=== PATIENT | male | born 1980 | race Caucasian/White ===

== ENCOUNTER 2016-10-19 03:35 | Emergency (ER) | payer OTHER ==
--- NOTE | 2016-10-19 03:48 | PDOC ---
History of Present Illness - General Stated Complaint: REFILL OF SEIZURE MEDICATION Time Seen by Provider: 10/19/16 03:47 Past History - Past Medical History Allergies/Adverse Reactions: Allergies Allergy/AdvReac Type Severity Reaction Status Date / Time No Known Allergies Allergy Verified 09/19/16 07:07 Home Medications: Ambulatory Orders Unobtainable [Unobtainable] 09/19/16 Seizures: Yes - Immunization History Immunization Up to Date: Yes - Psycho/Social/Smoking Cessation Hx Anxiety: No Suicidal Ideation: No Smoking History: Current every day smoker Number of Cigarettes Smoked Daily: 0 Hx Alcohol Use: No Drug/Substance Use Hx: No Substance Use Type: Marijuana *DC/Admit/Observation/Transfer - Attestations Physician Attestion: 10/19/16 03:47 I, Dr. Terry Macedo, attest that this document has been prepared under my direction and personally reviewed by me in its entirety. I further attest, that it accurately reflects all work, treatment, procedures and medical decision -making performed by me.
[2016-10-19 03:56] VITALS: BP 108/90; PULSE 79; TEMP 98.2; BMI 21.4
[2016-10-19] MEDS ORDERED: levETIRAcetam 500 MG TABLET (FP) PO ONE ×2 (04:10→04:34)
--- NOTE | 2016-10-19 04:15 | PDOC ---
History of Present Illness - General Stated Complaint: REFILL OF SEIZURE MEDICATION Time Seen by Provider: 10/19/16 03:47 History Source: Patient Exam Limitations: No Limitations - History of Present Illness Initial Comments: 10/19/16 04:11 36-year-old male, with no significant medical history, here for medication refill. Patient states that he ran out of his anti-seizure medication and is in need of refill. He states that his PCP is on vacation and he couldn't refill it prior to the holidays. Patient came by EMS transport with his girlfriend. No other complaints at this time. No chest pain, no shortness of breath, no fever, no chills, no dyspnea, no dysphagia, no headache, no LOC, no blurry vision, no tingling, no numbness, no motor or sensory deficits. Severity: mild Modifying Factors: worse with: cold therapy, eating, immobilization, medication , movement, rest, other Associated Symptoms: denies: denies symptoms, chest pain, cough, diaphoresis, fever/chills, headaches, loss of appetite, malaise, nausea/vomiting, rash, seizure, shortness of breath, syncope, weakness, other Aspirin Received prior to arrival: No: no aspirin today, unknown, 81 mg x 1, 81 mg x 2, 81 mg x 3, 81 mg x 4, 325 mg x 1, provided at home, provided by EMS, provided by ED [facility] Contraindications(Core Measure): No: Allergy, Other, Active Blding w/i 24 hrs., Plavix, Receiving Warfarin Beta Pascual Contraindications(Core Measure): Yes: Not Prescribed Beta Pascual Given by EMS(Core Measure): No Beta Pascual Taken at Home(Core Measure): No Beta Pascual Not Indicated at this Time(Core Measure): No Past History - Past Medical History Allergies/Adverse Reactions: Allergies Allergy/AdvReac Type Severity Reaction Status Date / Time No Known Allergies Allergy Verified 09/19/16 07:07 Home Medications: Ambulatory Orders Levetiracetam [Keppra -] 500 mg PO BID #14 tablet 10/19/16 Seizures: Yes - Immunization History Immunization Up to Date: Yes - Psycho/Social/Smoking Cessation Hx Anxiety: No Suicidal Ideation: No Smoking History: Unknown if ever smoked Number of Cigarettes Smoked Daily: 0 Cigars Per Day: 0 Information on smoking cessation initiated: No Hx Alcohol Use: No Drug/Substance Use Hx: No Substance Use Type: Marijuana *Physical Exam - Vital Signs Last Vital Signs Temp Pulse Resp BP Pulse Ox 98.2 F 79 20 108/90 100 10/19/16 03:53 10/19/16 03:53 10/19/16 03:53 10/19/16 03:53 10/19/16 03:53 - Physical Exam General Appearance: Yes: Nourished, Appropriately Dressed, Disheveled. No: Apparent Distress, Mild Distress, Moderate Distress, Severe Distress, Alcohol on Breath, Intoxicated, Cachetic, Obese, Thin, Other HEENT: positive: EOMI, DARRELL Neck: positive: Trachea midline, Normal Thyroid, Supple Respiratory/Chest: positive: Lungs Clear, Normal Breath Sounds, Respiratory Distress. 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
== END 2016-10-19 04:39 | disposition home or self-care (01) ==
LOC: JER 03:35
DX: G40.802 Other epilepsy, not intractable, without status epilepticus (principal)
CPT/HCPCS: 99281-25

== ENCOUNTER 2017-01-29 23:34 | Observation (INO) | payer OTHER ==
--- NOTE | 2017-01-29 23:58 | PDOC ---
History of Present Illness - General Chief Complaint: Pain Stated Complaint: ABD PAIN Time Seen by Provider: 01/29/17 23:40 History Source: Patient Exam Limitations: No Limitations - History of Present Illness Travel History: No Initial Comments: 01/30/17 00:18 36-year-old male with a history of seizures presents to the emergency department complaining of diffuse abdominal pains 2 days without nausea/ vomiting, fever/chills lash diarrhea, chest pain, shortness of breath, urinary symptoms. Pain is alleviated minimally at rest and exacerbated on touch. There are no other symptoms or complaints. Timing/Duration: reports: intermittent Quality: reports: mild Abdominal Pain Onset Location: reports: generalized abdomen Pain Radiation: reports: no radiation Past History - Travel Traveled outside of the country in the last 30 days: No Close contact w/someone who was outside of country & ill: No - Past Medical History Allergies/Adverse Reactions: Allergies Allergy/AdvReac Type Severity Reaction Status Date / Time No Known Allergies Allergy Verified 01/29/17 23:35 Home Medications: Ambulatory Orders Levetiracetam [Keppra -] 500 mg PO BID #14 tablet 10/19/16 Seizures: Yes - Immunization History Immunization Up to Date: Yes - Psycho/Social/Smoking Cessation Hx Anxiety: No Suicidal Ideation: No Smoking History: Never smoked Have you smoked in the past 12 months: No Number of Cigarettes Smoked Daily: 5 Cigars Per Day: 0 Information on smoking cessation initiated: No Hx Alcohol Use: No Drug/Substance Use Hx: No Substance Use Type: None, Marijuana Review of Systems - Review of Systems Able to Perform ROS?: Yes Comments:: 01/30/17 00:17 CONSTITUTIONAL: Absent: fever, chills, diaphoresis, generalized weakness, malaise, loss of appetite HEENT: Absent: rhinorrhea, nasal congestion, throat pain, throat swelling, difficulty swallowing, mouth swelling, ear pain, eye pain, visual Changes CARDIOVASCULAR: Absent: chest pain, loss of consciousness, palpitations, irregular heart rate, peripheral edema RESPIRATORY: Absent: cough, shortness of breath, dyspnea with exertion, orthopnea, wheezing, stridor, hemoptysis GASTROINTESTINAL: +diffuse abd pain Absent: abdominal distension, nausea, vomiting, diarrhea, constipation, melena, hematochezia GENITOURINARY: Absent: dysuria, frequency, urgency, hesitancy, hematuria, flank pain, genital pain MUSCULOSKELETAL: Absent: myalgia, arthralgia, joint swelling SKIN: Absent: rash, itching, pallor HEMATOLOGIC/IMMUNOLOGIC: Absent: easy bleeding, easy bruising, lymphadenopathy, frequent infections ENDOCRINE: Absent: unexplained weight gain, unexplained weight loss, heat intolerance, cold intolerance NEUROLOGIC: Absent: headache, focal weakness or paresthesias, dizziness, unsteady gait, seizure, mental status changes, bladder or bowel incontinence PSYCHIATRIC: Absent: anxiety, depression, suicidal or homicidal ideation, hallucinations. Is the patient limited French proficient: No *Physical Exam - Vital Signs Last Vital Signs Temp Pulse Resp BP Pulse Ox 97.6 F 78 20 132/79 99 01/29/17 23:36 01/29/17 23:36 01/29/17 23:36 01/29/17 23:36 01/29/17 23:36 - Physical Exam Comments: 01/30/17 00:18 GENERAL: Well developed, well nourished. Awake and alert. No acute distress. HEENT: Normocephalic, atraumatic. PERRLA, EOMI. No conjunctival pallor. Sclera are non- icteric. Moist mucous membranes. Oropharynx is clear. NECK: Supple. Full ROM. No JVD. Carotid pulses 2+ and symmetric, without bruits. No thyromegaly. No lymphadenopathy. CARDIOVASCULAR: Regular rate and rhythm. No murmurs, rubs, or gallops. Distal pulses are 2+ and symmetric. PULMONARY: No evidence of respiratory distress. Lungs clear to auscultation bilaterally. No wheezing, rales or rhonchi. ABDOMINAL: diffuse abde pain Soft. Non-distended. No rebound or guarding. No organomegaly. Normoactive bowel sounds. MUSCULOSKELETAL Normal range of motion at all joints. No bony deformities or tenderness. No CVA tenderness. EXTREMITIES: No cyanosis. No clubbing. No edema. No calf tenderness. SKIN: Warm and dry. Normal capillary refill. No rashes. No jaundice. NEUROLOGICAL: Alert, awake, appropriate. Cranial nerves 2-12 intact. No deficits to light touch and temperature in face, upper extremities and lower extremities. No motor deficits in the in face, upper extremities and lower extremities. Normoreflexic in the upper and lower extremities. Normal speech. Toes are down- going bilaterally. Gait is normal without ataxia. PSYCHIATRIC: Cooperative. Good eye contact. Appropriate mood and affect. ED Treatment Course - LABORATORY CBC & Chemistry Diagram: 01/30/17 00:30 01/30/17 00:30 - RADIOLOGY Radiograph Interpretation: 01/30/17 04:44 CT abdomen/pelvis with by mouth and IV contrast Shane thickening segments of small bowel and transverse colon suggest nonspecific enterolateral colitis. Peritoneal fluid and mild mesenteric lymph node enlargement is likely related to enterocolitis. *DC/Admit/Observation/Transfer Diagnosis at time of Disposition: Enterocolitis - Discharge Dispostion Condition at time of disposition: Guarded Admit: Yes - Referrals Referrals: Sofia Lui [Primary Care Provider] -
[2017-01-30] MEDS ORDERED: SODIUM CHLORIDE 1,000 ML IV STA
[2017-01-30] MEDS ORDERED: KETOROLAC TROMETHAMINE 30 MG/1 ML VIAL IVPUSH ONE (00:35)
[2017-01-30 00:40] LABS: BASOPHIL 0.4 % (0-2.0); EOSINOPHIL 0.2 % (0-4.5); MCH 29.2 pg (25.7-33.7); MEAN CELL VOLUME 85.9 fl (80-96); MEAN PLT VOLUME 7.8 fl (7.5-11.1); NEUTROPHILS 85.4 % (42.8-82.8); PLATELET COUNT 451 K/MM3 (134-434); RDW 14.1 % (11.9-15.9); WHITE BLOOD COUNT 14.4 K/mm3 (4.0-10.0)
[2017-01-30 01:11] LABS: ALBUMIN 4.6 g/dl (3.4-5.0); AMYLASE 30 U/L (25-115); ANION GAP 14 (8-16); CALCIUM 9.9 mg/dL (8.5-10.1); CO2 26 mmol/L (21-32); COCKROFT - GAULT 96.38; GLUCOSE,RANDOM 84 mg/dL (74-106); SGOT/AST 11 U/L (15-37); SGPT/ALT 14 U/L (12-78)
[2017-01-30 01:12] LABS: ALK PHOS 79 U/L (45-117); BILIRUBIN,TOTAL 0.8 mg/dL (0.2-1.0); TOT PROT 7.8 g/dl (6.4-8.2)
[2017-01-30] MEDS ORDERED: ACETAMINOPHEN 1000 MG/100 ML VIAL (NON FORMULARY) IVPB ONE (02:33)
[2017-01-30] MEDS ORDERED: ACETAMINOPHEN INJECTION 100 ML IVPB ONE (02:41)
[2017-01-30] MEDS ORDERED: METRONIDAZOLE 500 MG PREMIXED 100 ML IVPB ONE ×2 (04:47→05:04)
[2017-01-30] MEDS ORDERED: LEVOFLOXACIN 500 MG IVPB 100 ML IVPB ONE ×2 (04:47→05:45)
[2017-01-30] MEDS ORDERED: ONDANSETRON 4 MG/2 ML VIAL IVPB PRN (06:21)
--- NOTE | 2017-01-30 06:24 | HP ---
CHIEF COMPLAINT: PCP: Unknown HISTORY OF PRESENT ILLNESS: 36 y/o M uncooperative with examination, presented to ED complaining of generalized abdominal pain which started yesterday. pain 10 /10 in intensity and denied nausea or vomiting. On evaluation in ED patient asking for diluadid pushes and review of Istop shows patient with monthly supply of percocet. Patient denies symptoms having any relation to food, no recnt travel. Denies fever, chill, chest pain or palpitations. ER course was notable for: (1) Flagyl and Levofloxacin (2) IVF NS 1L (3) Recent Travel: None PAST MEDICAL HISTORY: Seizures PAST SURGICAL HISTORY:? Social History: Smoking: Marijuana Alcohol: Occasional Drugs: Marijuana Family History: Allergies No Known Allergies Allergy (Verified 01/29/17 23:35) HOME MEDICATIONS: Home Medications Medication Instructions Recorded Levetiracetam [Keppra -] 500 mg PO BID #14 tablet 10/19/16 REVIEW OF SYSTEMS CONSTITUTIONAL: Absent: fever, chills, diaphoresis, generalized weakness, malaise, loss of appetite, weight change HEENT: Absent: rhinorrhea, nasal congestion, throat pain, throat swelling, difficulty swallowing, mouth swelling, ear pain, eye pain, visual changes CARDIOVASCULAR: Absent: chest pain, syncope, palpitations, irregular heart rate, lightheadedness , peripheral edema RESPIRATORY: Absent: cough, shortness of breath, dyspnea with exertion, orthopnea, wheezing, stridor, hemoptysis GASTROINTESTINAL:abdominal pain, Absent: abdominal distension, nausea, vomiting, diarrhea, constipation, melena , hematochezia GENITOURINARY: Absent: dysuria, frequency, urgency, hesitancy, hematuria, flank pain, genital pain MUSCULOSKELETAL: back pain Absent: myalgia, arthralgia, joint swelling, , neck pain SKIN: Absent: rash, itching, pallor HEMATOLOGIC/IMMUNOLOGIC: Absent: easy bleeding, easy bruising, lymphadenopathy, frequent infections ENDOCRINE: Absent: unexplained weight gain, unexplained weight loss, heat intolerance, cold intolerance NEUROLOGIC: Absent: headache, focal weakness or paresthesias, dizziness, unsteady gait, seizure, mental status changes, bladder or bowel incontinence PSYCHIATRIC: Absent: anxiety, depression, suicidal or homicidal ideation, hallucinations. PHYSICAL EXAMINATION Vital Signs - 24 hr 01/29/17 23:36 Temperature 97.6 F Pulse Rate 78 Respiratory 20 Rate Blood Pressure 132/79 O2 Sat by Pulse 99 Oximetry (%) GENERAL: Awake, alert, and fully oriented, in no acute distress. Uncooperative, sleeping. HEAD: Normal with no signs of trauma. EYES: Pupils equal, round and reactive to light, extraocular movements intact, sclera anicteric, conjunctiva clear. No lid lag. EARS, NOSE, THROAT: Ears normal, nares patent, oropharynx clear without exudates. Moist mucous membranes. NECK: Normal range of motion, supple without lymphadenopathy, JVD, or masses. LUNGS: Breath sounds equal, clear to auscultation bilaterally. No wheezes, and no crackles. No accessory muscle use. HEART: Regular rate and rhythm, normal S1 and S2 without murmur, rub or gallop. ABDOMEN: Soft, nontender, not distended, normoactive bowel sounds, false guarding, no rebound, no masses. No hepatomegaly or splenomegaly. MUSCULOSKELETAL: Normal range of motion at all joints. No bony deformities or tenderness. No CVA tenderness. UPPER EXTREMITIES: 2+ pulses, warm, well-perfused. No cyanosis. No clubbing. No peripheral edema. LOWER EXTREMITIES: 2+ pulses, warm, well-perfused. No calf tenderness. No peripheral edema. NEUROLOGICAL: Cranial nerves II-XII intact. Normal speech. Normal gait. PSYCHIATRIC: Cooperative. Good eye contact. Appropriate mood and affect. SKIN: Warm, dry, normal turgor, no rashes or lesions noted, normal capillary refill. Laboratory Results - last 24 hr 01/30/17 01/30/17 00:30 00:30 WBC 14.4 H RBC 4.71 Hgb 13.7 D Hct 40.5 MCV 85.9 MCHC 34.0 RDW 14.1 Plt Count 451 H D MPV 7.8 D Neutrophils % 85.4 H Lymphocytes % 7.0 L D Monocytes % 7.0 Eosinophils % 0.2 Basophils % 0.4 Sodium 136 Potassium 4.2 Chloride 96 L Carbon Dioxide 26 Anion Gap 14 BUN 15 D Creatinine 1.0 Creat Clearance w eGFR > 60 Random Glucose 84 Calcium 9.9 D Total Bilirubin 0.8 D AST 11 L D ALT 14 D Alkaline Phosphatase 79 Total Protein 7.8 Albumin 4.6 Total Amylase 30 D Lipase 64 L ASSESSMENT/PLAN: Acute Gastroenteritis vs malingering ( opioid) low sodium diet as tolerated IVF NS @125cc/h Zofran prn tylenol prn Repeat CBC, BMP DVT prophylaxis NO Opioids Seizures Continue Keppra 500mg BID Ativan PRN Admitted for observation Problem List - Problem (1) Enterocolitis Code(s): K52.9 - NONINFECTIVE GASTROENTERITIS AND COLITIS, UNSPECIFIED (2) Seizure Code(s): R56.9 - UNSPECIFIED CONVULSIONS Visit type - Emergency Visit Emergency Visit: Yes Care time: The patient presented to the Emergency Department on the above date and was hospitalized for further evaluation of their emergent condition. - New Patient This patient is new to me today: Yes Date on this admission: 01/30/17 - Critical Care Critical Care patient: No
[2017-01-30] MEDS: ACETAMINOPHEN 325 MG TABLET (FP) PO PRN ×2 (09:16→16:49)
[2017-01-30 09:45] LABS: BASOPHIL 0.3 % (0-2.0); MCH 28.4 pg (25.7-33.7); MCHC 32.8 g/dl (32.0-35.9); MEAN CELL VOLUME 86.8 fl (80-96); MEAN PLT VOLUME 8.1 fl (7.5-11.1); NEUTROPHILS 90.8 % (42.8-82.8); PLATELET COUNT 340 K/MM3 (134-434); RDW 14.3 % (11.9-15.9); WHITE BLOOD COUNT 12.1 K/mm3 (4.0-10.0)
[2017-01-30] MEDS: SODIUM CHLORIDE 1,000 ML IV SCH (09:48)
[2017-01-30] MEDS: levETIRAcetam 500 MG TABLET (FP) PO SCH ×2 (10:36→21:58)
[2017-01-30] MEDS ORDERED: ACETAMINOPHEN 325 MG TABLET (FP) ONE (16:47)
--- NOTE | 2017-01-30 17:32 | PN ---
Physical Exam: SUBJECTIVE: Patient seen and examined Patient is c/o having midepigastric pain, that he is not able to eat any food. OBJECTIVE: Vital Signs Temperature 98.7 F 01/30/17 16:37 Pulse Rate 94 H 01/30/17 16:37 Respiratory Rate 18 01/30/17 16:37 Blood Pressure 119/72 01/30/17 16:37 O2 Sat by Pulse Oximetry (%) 97 01/30/17 16:37 GENERAL: The patient is awake, alert, and fully oriented, in no acute distress. HEAD: Normal with no signs of trauma. EYES: PERRL, extraocular movements intact, sclera anicteric, conjunctiva clear. No ptosis. ENT: Ears normal, nares patent, oropharynx clear without exudates, moist mucous membranes. NECK: Trachea midline, full range of motion, supple. LUNGS: Breath sounds equal, clear to auscultation bilaterally, no wheezes, no crackles, no accessory muscle use. HEART: Regular rate and rhythm, S1, S2 without murmur, rub or gallop. ABDOMEN: Soft, mild tenderness , nondistended, normoactive bowel sounds, positive for voluntary guarding, no rebound, no masses appreciated . EXTREMITIES: 2+ pulses, warm, well-perfused, no edema. NEUROLOGICAL: Cranial nerves II through XII grossly intact. Normal speech, gait not observed. PSYCH: Normal mood, normal affect. SKIN: Warm, dry, normal turgor, no rashes or lesions noted CBCD WBC 12.1 K/mm3 (4.0-10.0) H 01/30/17 09:13 RBC 4.60 M/mm3 (4.00-5.60) 01/30/17 09:13 Hgb 13.1 GM/dL (11.7-16.9) 01/30/17 09:13 Hct 39.9 % (35.4-49) 01/30/17 09:13 MCV 86.8 fl (80-96) 01/30/17 09:13 MCHC 32.8 g/dl (32.0-35.9) 01/30/17 09:13 RDW 14.3 % (11.9-15.9) 01/30/17 09:13 Plt Count 340 K/MM3 (134-434) D 01/30/17 09:13 MPV 8.1 fl (7.5-11.1) 01/30/17 09:13 CMP Sodium 136 mmol/L (136-145) 01/30/17 00:30 Potassium 4.2 mmol/L (3.5-5.1) 01/30/17 00:30 Chloride 96 mmol/L (98-107) L 01/30/17 00:30 Carbon Dioxide 26 mmol/L (21-32) 01/30/17 00:30 Anion Gap 14 (8-16) 01/30/17 00:30 BUN 15 mg/dL (7-18) D 01/30/17 00:30 Creatinine 1.0 mg/dL (0.7-1.3) 01/30/17 00:30 Creat Clearance w eGFR > 60 (>60) 01/30/17 00:30 Random Glucose 84 mg/dL (74-106) 01/30/17 00:30 Calcium 9.9 mg/dL (8.5-10.1) D 01/30/17 00:30 Total Bilirubin 0.8 mg/dL (0.2-1.0) D 01/30/17 00:30 AST 11 U/L (15-37) L D 01/30/17 00:30 ALT 14 U/L (12-78) D 01/30/17 00:30 Alkaline Phosphatase 79 U/L (45-117) 01/30/17 00:30 Total Protein 7.8 g/dl (6.4-8.2) 01/30/17 00:30 Albumin 4.6 g/dl (3.4-5.0) 01/30/17 00:30 Home Medications Medication Instructions Recorded Levetiracetam [Keppra -] 500 mg PO BID #14 tablet 10/19/16 Generic Name Dose Route Start Last Admin Trade Name Freq PRN Reason Stop Dose Admin Acetaminophen 650 mg 01/30/17 06:21 01/30/17 16:49 Tylenol - PO 650 mg Q6H PRN Administration FEVER OR PAIN Sodium Chloride 1,000 mls @ 125 mls/hr 01/30/17 06:30 01/30/17 09:48 Normal Saline - IV 125 mls/hr ASDIR KOKO Administration Ceftriaxone Sodium 1 gm/ 100 mls @ 200 mls/hr 01/30/17 17:30 Dextrose IVPB DAILY KOKO Metronidazole 50 mls @ 50 mls/hr 01/30/17 18:00 Flagyl 250mg Premixed Ivpb - IVPB Q8H-IV KOKO Levetiracetam 500 mg 01/30/17 10:00 01/30/17 10:36 Keppra - PO 500 mg BID KOKO Administration Ondansetron HCl 4 mg 01/30/17 06:21 Zofran Injection IVPB Q6H PRN NAUSEA ASSESSMENT/PLAN: Patient is a 36 y/o Male presented to ED complaining of generalized abdominal pain. #Acute enterocolitis on IV antibiotic rocephin/Flagyl IV for now, IVF NS @125cc /h ;Zofran prn ;tylenol prn ;Repeat CBC, BMP also c/o having stomach pain that he is unable to eat, will add pepcid IV BId, NO Opioids #Seizures: Continue Keppra 500mg BID ;Ativan PRN DVT prophylaxis: early ambulation repeat labs in am Visit type - Emergency Visit Emergency Visit: Yes ED Registration Date: 01/30/17 Care time: The patient presented to the Emergency Department on the above date and was hospitalized for further evaluation of their emergent condition. - New Patient This patient is new to me today: Yes Date on this admission: 01/30/17 - Critical Care Critical Care patient: No
[2017-01-30] MEDS ORDERED: CEFTRIAXONE 50 ML ONE (18:24)
[2017-01-30] MEDS: CEFTRIAXONE 50 ML IVPB SCH (18:37)
[2017-01-30 18:42] VITALS: BMI 28.3
[2017-01-30] MEDS ORDERED: KETOROLAC TROMETHAMINE 15 MG/ML VIAL IVPB ONE (20:07)
[2017-01-30] MEDS: METRONIDAZOLE PREMIXED IVPB 50 ML IVPB SCH (21:57)
[2017-01-30] MEDS: FAMOTIDINE 20 MG/50 ML IVPB 50 ML IVPB SCH (21:59)
[2017-01-31] MEDS: ACETAMINOPHEN 325 MG TABLET (FP) PO PRN ×2 (02:56→09:28)
[2017-01-31] MEDS: METRONIDAZOLE PREMIXED IVPB 50 ML IVPB SCH ×2 (02:57→10:22)
[2017-01-31] MEDS ORDERED: KETOROLAC TROMETHAMINE 15 MG/ML VIAL IVPB ONE (06:34)
[2017-01-31] MEDS: SODIUM CHLORIDE 1,000 ML IV SCH (06:49)
[2017-01-31 07:47] VITALS: TEMP 98.8
[2017-01-31 08:42] LABS: BASOPHIL 0.2 % (0-2.0); EOSINOPHIL 1.1 % (0-4.5); MCH 28.7 pg (25.7-33.7); MCHC 32.7 g/dl (32.0-35.9); MEAN CELL VOLUME 87.7 fl (80-96); MEAN PLT VOLUME 8.5 fl (7.5-11.1); NEUTROPHILS 81.8 % (42.8-82.8); PLATELET COUNT 292 K/MM3 (134-434); RDW 14.8 % (11.9-15.9); WHITE BLOOD COUNT 10.4 K/mm3 (4.0-10.0)
[2017-01-31 09:08] LABS: ALBUMIN 2.8 g/dl (3.4-5.0); ANION GAP 10 (8-16); BILIRUBIN,TOTAL 0.8 mg/dL (0.2-1.0); CALCIUM 8.3 mg/dL (8.5-10.1); CO2 24 mmol/L (21-32); COCKROFT - GAULT 192.77; CREATININE 0.5 mg/dL (0.7-1.3); GLUCOSE,RANDOM 85 mg/dL (74-106); PHOSPHOROUS 1.8 mg/dL (2.5-4.9); SGOT/AST 9 U/L (15-37); SGPT/ALT 11 U/L (12-78)
[2017-01-31 09:09] LABS: ALK PHOS 46 U/L (45-117); TOT PROT 5.5 g/dl (6.4-8.2)
[2017-01-31] MEDS: FAMOTIDINE 20 MG/50 ML IVPB 50 ML IVPB SCH (09:12)
[2017-01-31] MEDS: levETIRAcetam 500 MG TABLET (FP) PO SCH (09:30)
[2017-01-31 09:35] VITALS: BP 130/74; PULSE 92
[2017-01-31 10:50] LABS: URINE APPEARANCE CLEAR; URINE BILIRUBIN NEGATIVE (NEGATIVE); URINE BLOOD NEGATIVE (NEGATIVE); URINE COLOR AMBER; URINE GLUCOSE (UA) NEGATIVE (NEGATIVE); URINE KETONE 2+ (NEGATIVE); URINE LEUK ESTERASE NEGATIVE (NEGATIVE); URINE NITRITE NEGATIVE (NEGATIVE); URINE UROBILINOGEN NEGATIVE E.U./dl (0.2-1.0)
[2017-01-31 10:54] LABS: URINE PROTEIN 2+ (NEGATIVE)
[2017-01-31 10:55] LABS: URINE BACTERIA RARE /hpf (NONE SEEN); URINE MUCUS MODERATE; URINE RBC 4 /hpf (0-3); URINE WBC 2 /hpf (3-5)
[2017-01-31] MEDS ORDERED: DICYCLOMINE HCL 10 MG CAPSULE PO ONE (11:14)
[2017-01-31] MEDS: CEFTRIAXONE 50 ML IVPB SCH (11:42)
[2017-01-31] MEDS ORDERED: NAPH,MB-DB/K PH,MBDB POWDER PACKET PO ONE (12:00)
--- NOTE | 2017-01-31 12:09 | PN ---
Teaching Attending Note Name of Resident: Sim Smith ATTENDING PHYSICIAN STATEMENT I saw and evaluated the patient. I reviewed the resident's note and discussed the case with the resident. I agree with the resident's findings and plan as documented. Patient is feeling better , able to eat but c/o having mild epigastric pain. Vital Signs Temperature 98.8 F 01/31/17 06:00 Pulse Rate 92 H 01/31/17 09:00 Respiratory Rate 18 01/31/17 09:00 Blood Pressure 130/74 01/31/17 09:00 O2 Sat by Pulse Oximetry (%) 94 L 01/31/17 09:00 GENERAL: The patient is awake, alert, and fully oriented, in no acute distress. HEAD: Normal with no signs of trauma. EYES: PERRL, extraocular movements intact, sclera anicteric, conjunctiva clear. No ptosis. ENT: Ears normal, nares patent, oropharynx clear without exudates, moist mucous membranes. NECK: Trachea midline, full range of motion, supple. LUNGS: Breath sounds equal, clear to auscultation bilaterally, no wheezes, no crackles, no accessory muscle use. HEART: Regular rate and rhythm, S1, S2 without murmur, rub or gallop. ABDOMEN: Soft, mild tenderness , nondistended, normoactive bowel sounds, positive for voluntary guarding, no rebound, no masses appreciated . EXTREMITIES: 2+ pulses, warm, well-perfused, no edema. NEUROLOGICAL: Cranial nerves II through XII grossly intact. Normal speech, gait not observed. PSYCH: Normal mood, normal affect. SKIN: Warm, dry, normal turgor, no rashes or lesions noted CBCD WBC 10.4 K/mm3 (4.0-10.0) H 01/31/17 07:30 RBC 4.26 M/mm3 (4.00-5.60) 01/31/17 07:30 Hgb 12.2 GM/dL (11.7-16.9) 01/31/17 07:30 Hct 37.3 % (35.4-49) 01/31/17 07:30 MCV 87.7 fl (80-96) 01/31/17 07:30 MCHC 32.7 g/dl (32.0-35.9) 01/31/17 07:30 RDW 14.8 % (11.9-15.9) 01/31/17 07:30 Plt Count 292 K/MM3 (134-434) 01/31/17 07:30 MPV 8.5 fl (7.5-11.1) 01/31/17 07:30 CMP Sodium 140 mmol/L (136-145) 01/31/17 07:30 Potassium 3.9 mmol/L (3.5-5.1) 01/31/17 07:30 Chloride 106 mmol/L (98-107) D 01/31/17 07:30 Carbon Dioxide 24 mmol/L (21-32) 01/31/17 07:30 Anion Gap 10 (8-16) 01/31/17 07:30 BUN 13 mg/dL (7-18) 01/31/17 07:30 Creatinine 0.5 mg/dL (0.7-1.3) L D 01/31/17 07:30 Creat Clearance w eGFR > 60 (>60) 01/31/17 07:30 Random Glucose 85 mg/dL (74-106) 01/31/17 07:30 Calcium 8.3 mg/dL (8.5-10.1) L 01/31/17 07:30 Total Bilirubin 0.8 mg/dL (0.2-1.0) 01/31/17 07:30 AST 9 U/L (15-37) L 01/31/17 07:30 ALT 11 U/L (12-78) L D 01/31/17 07:30 Alkaline Phosphatase 46 U/L (45-117) D 01/31/17 07:30 Total Protein 5.5 g/dl (6.4-8.2) L D 01/31/17 07:30 Albumin 2.8 g/dl (3.4-5.0) L D 01/31/17 07:30 Current Medications Generic Name Dose Route Start Last Admin Trade Name Freq PRN Reason Stop Dose Admin Acetaminophen 650 mg 01/30/17 06:21 01/31/17 09:28 Tylenol - PO 650 mg Q6H PRN Administration FEVER OR PAIN Sodium Chloride 1,000 mls @ 125 mls/hr 01/30/17 06:30 01/31/17 06:49 Normal Saline - IV 125 mls/hr ASDIR KOKO Administration Ceftriaxone Sodium 50 mls @ 100 mls/hr 01/30/17 17:30 01/31/17 11:42 Rocephin 1gm Ivpb (Pre-Docked) IVPB 100 mls/hr DAILY KOKO Administration Metronidazole 50 mls @ 50 mls/hr 01/30/17 18:00 01/31/17 10:22 Flagyl 250mg Premixed Ivpb - IVPB 50 mls/hr Q8H-IV KOKO Administration Famotidine/Sodium Chloride 50 mls @ 100 mls/hr 01/30/17 22:00 01/31/17 09:12 Pepcid 20 Mg Premixed Ivpb - IVPB 100 mls/hr BID KOKO Administration Levetiracetam 500 mg 01/30/17 10:00 01/31/17 09:30 Keppra - PO 500 mg BID KOKO Administration Ondansetron HCl 4 mg 01/30/17 06:21 Zofran Injection IVPB Q6H PRN NAUSEA Home Medications Medication Instructions Recorded Levetiracetam [Keppra -] 500 mg PO BID #14 tablet 10/19/16 Acetaminophen [Tylenol .Regular 650 mg PO Q6H PRN #0 tablet 01/31/17 Strength -] Dicyclomine HCl [Bentyl -] 10 mg PO BID #8 capsule 01/31/17 Levofloxacin [Levaquin -] 500 mg PO DAILY #5 tablet 01/31/17 Metronidazole [Flagyl -] 500 mg PO Q8H #15 tablet 01/31/17 IMPRESSION: Abnormal transverse colon possible segments of proximal and mid small bowel. Suggestive of a enterocolitis. The small amount of fluid seen in the pelvis may be secondary to that process Small amount of fluid surrounding the gallbladder may be a separate finding and should be correlated clinically ASSESSMENT AND PLAN: Patient is a 36 y/o Male presented to ED complaining of generalized abdominal pain. #Acute enterocolitis on IV antibiotic rocephin/Flagyl IV will switch to po antibiotics on Levaquin and Flagyl daily x 5 days , no alcohol with flagyl follow up with GI in a week for EGD/colonoscopy and further # c/o stomach pain will give him Bentyl 10mg 2 x per day for 4 days . #Seizures: Continue Keppra 500mg BID DVT prophylaxis: early ambulation
--- NOTE | 2017-01-31 15:03 | DS ---
Physical Exam: SUBJECTIVE: Patient seen and examined OBJECTIVE: Vital Signs Period Temp Pulse Resp BP Sys/Kay Pulse Ox Last 24 Hr 98.3 F-98.8 F 84-94 18-18 112-131/71-78 93-97 PHYSICAL EXAM GENERAL: The patient is awake, alert, and fully oriented, in no acute distress. HEAD: Normal with no signs of trauma. EYES: PERRL, extraocular movements intact, sclera anicteric, conjunctiva clear. No ptosis. ENT: Ears normal, nares patent, oropharynx clear without exudates, moist mucous membranes. NECK: Trachea midline, full range of motion, supple. LUNGS: Breath sounds equal, clear to auscultation bilaterally, no wheezes, no crackles, no accessory muscle use. HEART: Regular rate and rhythm, S1, S2 without murmur, rub or gallop. ABDOMEN: Soft, mildly TTP epigastrium improved per patient, nondistended, normoactive bowel sounds, no guarding, no rigidity LABS Laboratory Results - last 24 hr 01/31/17 01/31/17 01/31/17 07:30 07:30 08:30 WBC 10.4 H RBC 4.26 Hgb 12.2 Hct 37.3 MCV 87.7 MCHC 32.7 RDW 14.8 Plt Count 292 MPV 8.5 Neutrophils % 81.8 Lymphocytes % 7.8 L D Monocytes % 9.1 Eosinophils % 1.1 D Basophils % 0.2 Sodium 140 Potassium 3.9 Chloride 106 D Carbon Dioxide 24 Anion Gap 10 BUN 13 Creatinine 0.5 L D Creat Clearance w eGFR > 60 Random Glucose 85 Calcium 8.3 L Phosphorus 1.8 L Magnesium 2.0 D Total Bilirubin 0.8 AST 9 L ALT 11 L D Alkaline Phosphatase 46 D Total Protein 5.5 L D Albumin 2.8 L D Urine Color Felicia Urine Appearance Clear Urine pH 6.0 Ur Specific Harbinger 1.029 Urine Protein 2+ H Urine Glucose (UA) Negative Urine Ketones 2+ H Urine Blood Negative Urine Nitrite Negative Urine Bilirubin Negative Urine Urobilinogen Negative Ur Leukocyte Esterase Negative Urine RBC 4 Urine WBC 2 Urine Bacteria Rare Urine Mucus Moderate HOSPITAL COURSE: Date of Admission:01/30/17 Date of Discharge: 01/31/17 36M with history of seizure disorder and traumatic brain injury came in to the hospital with abdominal pain. Had a CT scan found to have enterocolitis and started on ABx. patient improved and WBC coutn normalized. He is stable for discharge on PO ABx and bentyl. patient has a history of memory loss from traumatic brain injury and everything was explained to the mother in detail and questions answered. Minutes to complete discharge: 50 Discharge Summary Reason For Visit: ENTEROCOLITIS Current Active Problems Enterocolitis (Acute) GERD (gastroesophageal reflux disease) (Acute) ADHD (attention deficit hyperactivity disorder) (Chronic) History of traumatic brain injury (Chronic) Polysubstance abuse (Chronic) Seizure (Chronic) Seizure disorder (Chronic) Condition: Improved - Instructions Diet, Activity, Other Instructions: eat food as tolerated take your antibiotics as prescribed take the bentyl as prescribed i gave you referrals for two gastroenterologists Dr. dacosta and Dr. Bocanegra see who takes your insurance and schedule an appointment. if neither one takes your insurance call your insurance company and see who takes your insurance and schedule an appointment with them follow up with your primary care doctor eat a low fiber diet Referrals: Antoni Bocanegra DO [Staff Physician] - 1 Week Shyam Dacosta MD [Staff Physician] - 1 Week Sofia Lui [Primary Care Provider] - 1 Week Disposition: HOME - Home Medications Comprehensive Discharge Medication List: Ambulatory Orders Levetiracetam [Keppra -] 500 mg PO BID #14 tablet 10/19/16 Acetaminophen [Tylenol .Regular Strength -] 650 mg PO Q6H PRN #0 tablet Dicyclomine HCl [Bentyl -] 10 mg PO BID #8 capsule 01/31/17 Levofloxacin [Levaquin -] 500 mg PO DAILY #5 tablet 01/31/17 Metronidazole [Flagyl -] 500 mg PO Q8H #15 tablet 01/31/17 This patient is new to me today: Yes Date on this admission: 01/31/17 Emergency Visit: Yes ED Registration Date: 01/30/17 Care time: The patient presented to the Emergency Department on the above date and was hospitalized for further evaluation of their emergent condition. Critical Care patient: No - Discharge Referral Referred to [facility] Med P.C.: No
== END 2017-01-31 14:16 | disposition home or self-care (01) ==
LOC: JER 23:34 → JERBED 01-30 06:31 → J5S 01-30 18:53
PROVIDERS: ADMIT Internal Medicine; ATTEND Internal Medicine
PROC: 3E03329 Introduction of Other Anti-infective into Peripheral Vein, Percutaneous Approach (ICD-10-PCS; principal; 2017-01-30)
PROC: 3E0333Z Introduction of Anti-inflammatory into Peripheral Vein, Percutaneous Approach (ICD-10-PCS; 2017-01-30)
PROC: 3E033GC Introduction of Other Therapeutic Substance into Peripheral Vein, Percutaneous Approach (ICD-10-PCS; 2017-01-30)
PROC: 3E0337Z Introduction of Electrolytic and Water Balance Substance into Peripheral Vein, Percutaneous Approach (ICD-10-PCS; 2017-01-30)
DX: K52.9 Noninfective gastroenteritis and colitis, unspecified (principal); K21.9 Gastro-esophageal reflux disease without esophagitis; G40.909 Epilepsy, unspecified, not intractable, without status epilepticus; F90.9 Attention-deficit hyperactivity disorder, unspecified type; F19.10 Other psychoactive substance abuse, uncomplicated; F10.10 Alcohol abuse, uncomplicated
CPT/HCPCS: 36415; 74177-TC; 80048; 80053; 81003; 81015; 82150; 83690; 83735; 84100; 85025; 99285-25; G0378

== ENCOUNTER 2017-02-05 02:36 | Emergency (ER) | payer OTHER ==
[2017-02-05 03:24] VITALS: TEMP 98.6; BMI 24.5
[2017-02-05] MEDS ORDERED: DICYCLOMINE HCL 10 MG/5 ML PO ONE (03:39)
[2017-02-05] MEDS ORDERED: ONDANSETRON *ODT* 4 MG TABLET SL ONE (03:39)
[2017-02-05] MEDS ORDERED: SODIUM CHLORIDE 0.9% 1000 ML INFUS.BAG IV ONE ×2 (03:58→05:47)
[2017-02-05] MEDS ORDERED: KETOROLAC TROMETHAMINE 30 MG/1 ML VIAL IM ONE (03:59)
[2017-02-05] MEDS ORDERED: KETOROLAC TROMETHAMINE 30 MG/1 ML VIAL IVPUSH ONE (04:14)
[2017-02-05] MEDS ORDERED: ONDANSETRON 4 MG/2 ML VIAL IVPUSH ONE (04:15)
[2017-02-05] MEDS ORDERED: KETOROLAC TROMETHAMINE 30 MG/1 ML VIAL ONE (04:16)
[2017-02-05] MEDS ORDERED: ONDANSETRON 4 MG/2 ML VIAL ONE (04:16)
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
[2017-02-05 04:39] LABS: BASOPHIL 0.5 % (0-2.0); MCHC 32.7 g/dl (32.0-35.9); MEAN CELL VOLUME 85.7 fl (80-96); MEAN PLT VOLUME 7.6 fl (7.5-11.1); NEUTROPHILS 73.5 % (42.8-82.8); PLATELET COUNT 544 K/MM3 (134-434); RDW 15.6 % (11.9-15.9); WHITE BLOOD COUNT 12.7 K/mm3 (4.0-10.0)
[2017-02-05 05:02] LABS: ALBUMIN 3.2 g/dl (3.4-5.0); ALK PHOS 60 U/L (45-117); ANION GAP 8 (8-16); BILIRUBIN,TOTAL 0.3 mg/dL (0.2-1.0); CALCIUM 9.1 mg/dL (8.5-10.1); CO2 28 mmol/L (21-32); COCKROFT - GAULT 139.22; CREATININE 0.6 mg/dL (0.7-1.3); GLUCOSE,RANDOM 113 mg/dL (74-106); SGPT/ALT 13 U/L (12-78); TOT PROT 6.8 g/dl (6.4-8.2)
[2017-02-05 05:05] LABS: SGOT/AST 16 U/L (15-37)
[2017-02-05] MEDS ORDERED: LACTULOSE 20 GM/30 ML UDC (FOR ORAL USE ONLY) PO ONE (06:20)
[2017-02-05] MEDS ORDERED: POLYETHYLENE GLYCOL 3350 119 GM BTL PO ONE (06:20)
[2017-02-05] MEDS ORDERED: DOCUSATE SODIUM 100 MG CAPSULE (FP) PO ONE (06:20)
[2017-02-05 07:39] VITALS: BP 110/79; PULSE 69
== END 2017-02-05 07:39 | disposition home or self-care (01) ==
LOC: JER 02:36
PROC: 3E033GC Introduction of Other Therapeutic Substance into Peripheral Vein, Percutaneous Approach (ICD-10-PCS; principal; 2017-02-05)
DX: K59.03 Drug induced constipation (principal); T40.2X5A Adverse effect of other opioids, initial encounter; Y92.038 Other place in apartment as the place of occurrence of the external cause; Z87.820 Personal history of traumatic brain injury
CPT/HCPCS: 36415; 74020-TC; 80053; 83690; 85025; 96374; 99283-25

== ENCOUNTER 2017-06-08 09:10 | Inpatient (IN) | payer OTHER ==
[2017-06-08] MEDS ORDERED: ETOMIDATE 20 MG/10 ML AMPUL IVPUSH ONE (10:01)
[2017-06-08] MEDS ORDERED: SODIUM CHLORIDE 1,000 ML IV STA (10:01)
[2017-06-08] MEDS ORDERED: VALPROATE SODIUM 500 MG/5 ML VIAL IVPB ONE ×2 (10:01→10:59)
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
--- NOTE | 2017-06-08 10:16 | PDOC ---
History of Present Illness - General Chief Complaint: Respiratory Distress Stated Complaint: SEIZURE Past History - Past Medical History Allergies/Adverse Reactions: Allergies Allergy/AdvReac Type Severity Reaction Status Date / Time No Known Allergies Allergy Verified 02/05/17 03:24 Home Medications: Ambulatory Orders Levetiracetam [Keppra -] 500 mg PO BID #14 tablet 10/19/16 Acetaminophen [Tylenol .Regular Strength -] 650 mg PO Q6H PRN #0 tablet Dicyclomine HCl [Bentyl -] 10 mg PO BID #8 capsule 01/31/17 Levofloxacin [Levaquin -] 500 mg PO DAILY #5 tablet 01/31/17 Metronidazole [Flagyl -] 500 mg PO Q8H #15 tablet 01/31/17 Magnesium Citrate [Citroma -] 300 ml PO ONCE #10 bottle 02/05/17 Sodium Phosphate/Na Biphos [Fleet Adult Rectal Enema] 133 ml RC ONCE #2 enema Seizures: Yes - Immunization History Immunization Up to Date: Yes - Psycho/Social/Smoking Cessation Hx Anxiety: No Suicidal Ideation: No Smoking History: Unknown if ever smoked Have you smoked in the past 12 months: No Number of Cigarettes Smoked Daily: 5 Cigars Per Day: 0 Hx Alcohol Use: No Drug/Substance Use Hx: No Substance Use Type: None, Alcohol, Marijuana Hx Substance Use Treatment: No *Physical Exam - Vital Signs Last Vital Signs Temp Pulse Resp BP Pulse Ox 32 H 06/08/17 09:30 ED Treatment Course - ADDITIONAL ORDERS Additional order review: Laboratory Results 06/08/17 09:24 POC Glucometer [id number] 06/08/17 09:24 POC Glucometer [id number]
[2017-06-08] MEDS: ACETYLCYSTEINE 20% 200MG/ML 30ML VIAL *FOR INJECTION USE ONLY IVPB ONE ×2 (10:17→10:21)
[2017-06-08] MEDS ORDERED: ACETAMINOPHEN 1000 MG/100 ML VIAL (NON FORMULARY) IVPB ONE (10:20)
[2017-06-08 10:21] LABS: VENOUS BLOOD GAS HCO3 15.3 meq/L (19-25)
[2017-06-08 10:22] LABS: VENOUS PH 6.99 (7.32-7.42)
[2017-06-08] MEDS ORDERED: PROPOFOL 100 ML IVPB SCH ×2 (10:30→11:15)
[2017-06-08 10:44] LABS: ALBUMIN 4.4 g/dl (3.4-5.0); ANION GAP 23 (8-16); BILIRUBIN,TOTAL 0.3 mg/dL (0.2-1.0); CALCIUM 10.3 mg/dL (8.5-10.1); CO2 15 mmol/L (21-32); CREATININE 1.7 mg/dL (0.7-1.3); GLUCOSE,RANDOM 107 mg/dL (74-106); SGPT/ALT 31 U/L (12-78); TOT PROT 8.6 g/dl (6.4-8.2)
[2017-06-08 10:47] LABS: ALK PHOS 140 U/L (45-117); CPK 87 IU/L (39-308); TROPONIN I 0.02 ng/ml (0.00-0.05)
[2017-06-08 10:49] VITALS: BMI 27.4
[2017-06-08] MEDS ORDERED: levETIRAcetam 500 MG/5 ML INJECTION VIAL IVPB ONE (10:53)
--- NOTE | 2017-06-08 10:57 | PDOC ---
Attending Attestation - Resident Resident Name: Tera Joy - HPI HPI: 06/08/17 10:44 Pt presents to the ED hypoxic and unresponsive, with bag valve ventilations by EMS. Found in status by EMS given 5 mg versed. On arrival to the ED, patient found to be hypoxic into the 70s despite bag valve mask ventilations. Febrile on arrival, given IV tylenol. Intubated with difficulty with 6.5 ETT on third attempt. Antiepileptic treatment given with 1 g depakene, started on propofol. differential includes non compliance with antiepileptics, electrolyte disturbance, infection, intracranial mass or bleed. Will check labs, CXR, CT head, admit to ICU. Case discussed with Dr. Knight of Neurology. 06/08/17 11:46 06/08/17 11:56 - Physicial Exam PE: 06/08/17 11:56 Agree with above exam. 06/08/17 11:56 - Critical Care Time Total Critical Care Time: 75 Critical Care Statement: The care of this patient involved high complexity decision making to prevent further life threatening deterioration of the patient 's condition and/or to evaluate & treat vital organ system(s) failure or risk of failure. - Medical Decision Making 06/08/17 11:56 06/08/17 11:56 differential includes non compliance with antiepileptics, electrolyte disturbance, infection, intracranial mass or bleed. Will check labs, CXR, CT head, admit to ICU. Case discussed with Dr. Knight of Neurology. Critical Care Time/MDM Note Total Critical Care Time: 75 Critical Care Statement: The care of this patient involved high complexity decision making to prevent further life threatening deterioration of the patient 's condition and/or to evaluate & treat vital organ system(s) failure or risk of failure.
[2017-06-08 10:59] LABS: URINE APPEARANCE CLOUDY; URINE BILIRUBIN NEGATIVE (NEGATIVE); URINE BLOOD 2+ (NEGATIVE); URINE COLOR YELLOW; URINE GLUCOSE (UA) 1+ (NEGATIVE); URINE KETONE TRACE (NEGATIVE); URINE LEUK ESTERASE NEGATIVE (NEGATIVE); URINE NITRITE NEGATIVE (NEGATIVE); URINE UROBILINOGEN NEGATIVE mg/dL (0.2-1.0)
[2017-06-08 11:01] LABS: SGOT/AST 42 U/L (15-37)
[2017-06-08 11:42] LABS: URINE PROTEIN 3+ (NEGATIVE)
[2017-06-08 11:43] LABS: INR 0.9 (0.82-1.09); PROTHROMBIN TIME (PATIENT) 9.9 SEC (9.98-11.88)
[2017-06-08 11:45] LABS: ACTIVATED PTT 25.2 SECONDS (26.9-34.4)
[2017-06-08 11:45] LABS: URINE HYALINE CAST 8 /lpf; URINE MUCUS RARE; URINE RBC 8 /hpf (0-3); URINE WBC 5 /hpf (3-5)
[2017-06-08 12:03] LABS: URINE MARIJUANA THC POSITIVE ng/ml (CUTOFF=50)
[2017-06-08] MEDS ORDERED: PNEUMOC 13-VAL CONJ-DIP CRM/PF 0.5 ML DISP.SYRIN IM ONE (12:15)
[2017-06-08 12:22] LABS: ARTERIAL BLD GAS O2 SATURATION 99.9 % (90-98.9); ARTERIAL BLOOD GAS BASE EXCESS -4.9 meq/l (-2-2); ARTERIAL BLOOD GAS HCO3 19.9 meq/L (22-26); ARTERIAL BLOOD GAS pH 7.34 (7.35-7.45)
[2017-06-08 12:24] LABS: LPM/O2% 100%; MECH. VENT. YES; PT. ON O2? YES; TYPE OF O2 VENT; VENT RATE 12; VT/PRESS 450
[2017-06-08 12:26] LABS: MCH 27.7 pg (25.7-33.7); MCHC 31.8 g/dl (32.0-35.9); MEAN CELL VOLUME 87.3 fl (80-96); MEAN PLT VOLUME 8.2 fl (7.5-11.1); PLATELET COUNT 372 K/MM3 (134-434); RDW 14.3 % (11.9-15.9); WHITE BLOOD COUNT 25.8 K/mm3 (4.0-10.0)
[2017-06-08 13:01] LABS: PLATELET ESTIMATE ADEQUATE (NORMAL); TOTAL CELLS COUNTED 100
[2017-06-08] MEDS ORDERED: PROPOFOL 100 ML ONE (13:03)
[2017-06-08] MEDS ORDERED: LORazepam 2 MG/ML SDV VIAL IVPUSH PRN (13:48)
--- NOTE | 2017-06-08 14:22 | HP ---
CHIEF COMPLAINT: status epilepticus PCP: Sofia Lui HISTORY OF PRESENT ILLNESS: History taken solely from ED staff and records as pt was intubated and unresponsive, and no family was available. Pt is a 36 y/o male with PMH remote TBI with residual epilepsy and history of neurosurgery 2011. Pt has history of noncompliance with medications and polysubstance abuse. Came to this ED in 09/2016 for similar presentation. Per report, pt took 500mg Keppra this am. ER course was notable for: (1)O2 sat in 70s prompting intubation and sedation with propafol via L central line. (2)head CT (3)1 dose depakene, 1 gm keppra, 5mg Ativan (given en route by EMS) Recent Travel: unknown PAST MEDICAL HISTORY: epilepsy PAST SURGICAL HISTORY: brain surgery unknown date Social History: Smoking: unknown Alcohol: unknown Drugs: polysubstance abuse Family History: unknown Allergies No Known Allergies Allergy (Verified 02/05/17 03:24) HOME MEDICATIONS: Home Medications Medication Instructions Recorded Levetiracetam [Keppra -] 500 mg PO BID #14 tablet 10/19/16 Acetaminophen [Tylenol .Regular 650 mg PO Q6H PRN #0 tablet 01/31/17 Strength -] Dicyclomine HCl [Bentyl -] 10 mg PO BID #8 capsule 01/31/17 Levofloxacin [Levaquin -] 500 mg PO DAILY #5 tablet 01/31/17 Metronidazole [Flagyl -] 500 mg PO Q8H #15 tablet 01/31/17 Magnesium Citrate [Citroma -] 300 ml PO ONCE #10 bottle 02/05/17 Sodium Phosphate/Na Biphos [Fleet 133 ml RC ONCE #2 enema 02/05/17 Adult Rectal Enema] REVIEW OF SYSTEMS CONSTITUTIONAL: Pt unresponsive, intubated, sedated Absent: fever, chills, diaphoresis, generalized weakness, malaise, loss of appetite, weight change HEENT: Absent: rhinorrhea, nasal congestion, throat pain, throat swelling, difficulty swallowing, mouth swelling, ear pain, eye pain, visual changes CARDIOVASCULAR: Absent: chest pain, syncope, palpitations, irregular heart rate, lightheadedness , peripheral edema RESPIRATORY: Absent: cough, shortness of breath, dyspnea with exertion, orthopnea, wheezing, stridor, hemoptysis GASTROINTESTINAL: Absent: abdominal pain, abdominal distension, nausea, vomiting, diarrhea, constipation, melena, hematochezia GENITOURINARY: Absent: dysuria, frequency, urgency, hesitancy, hematuria, flank pain, genital pain MUSCULOSKELETAL: Absent: myalgia, arthralgia, joint swelling, back pain, neck pain SKIN: Absent: rash, itching, pallor HEMATOLOGIC/IMMUNOLOGIC: Absent: easy bleeding, easy bruising, lymphadenopathy, frequent infections ENDOCRINE: Absent: unexplained weight gain, unexplained weight loss, heat intolerance, cold intolerance NEUROLOGIC: Absent: headache, focal weakness or paresthesias, dizziness, unsteady gait, seizure, mental status changes, bladder or bowel incontinence PSYCHIATRIC: Absent: anxiety, depression, suicidal or homicidal ideation, hallucinations. PHYSICAL EXAMINATION Vital Signs - 24 hr 06/08/17 06/08/17 12:25 12:43 Temperature 100.6 F H Pulse Rate [ 105 H Left Apical] Respiratory 25 H 16 Rate Blood Pressure 118/79 [Right Arm] O2 Sat by Pulse 97 Oximetry (%) GENERAL: Intubated and sedated HEAD: Normal with no signs of trauma. EYES: Pupils equal, dilated, round and reactive to light, sclera anicteric, conjunctiva clear. No lid lag. EARS, NOSE, THROAT: Ears normal, nares patent, Moist mucous membranes. NECK: no JVD, or masses. LUNGS: Anterior breath sounds equal, clear to auscultation bilaterally. No wheezes, and no crackles. No accessory muscle use. HEART: Regular rate and rhythm, normal S1 and S2 without murmur, rub or gallop. ABDOMEN: Soft, nontender, not distended, normoactive bowel sounds, no guarding, no rebound, no masses. No hepatomegaly or splenomegaly. MUSCULOSKELETAL: Active motion not tested. No bony deformities or tenderness. No CVA tenderness. UPPER EXTREMITIES: 2+ pulses, warm, well-perfused. No cyanosis. No clubbing. No peripheral edema. LOWER EXTREMITIES: 2+ pulses, warm, well-perfused. No peripheral edema. NEUROLOGICAL: Cranial nerves II-XII intact. Normal speech. Normal gait. PSYCHIATRIC: Intubated and sedated SKIN: Warm, dry, normal turgor, no rashes or lesions noted, normal capillary refill. Laboratory Results - last 24 hr 06/08/17 06/08/17 06/08/17 12:09 12:15 12:40 WBC 25.8 H D RBC 5.23 Hgb 14.5 D Hct 45.7 D MCV 87.3 MCH 27.7 MCHC 31.8 L RDW 14.3 Plt Count 372 D MPV 8.2 Total Counted 100 Neutrophils % Y Neutrophils % (Manual) 87 H Band Neuts % (Manual) 1 Lymphocytes % Y Lymphocytes % (Manual) 2 L Monocytes % (Manual) 9 Eosinophils % (Manual) 1 Platelet Estimate Adequate Puncture Site Md puncture ABG pH 7.34 L ABG pCO2 at Pt Temp 38.2 ABG pO2 at Pt Temp 342.0 H* ABG HCO3 19.9 L ABG O2 Sat (Measured) 99.9 H* ABG O2 Content 20.0 ABG Base Excess -4.9 L Sulaiman Test Not applicable O2 Delivery Device Vent Oxygen Flow Rate 100% Vent Mode A/c Vent Rate 12 Mechanical Rate Yes PEEP 5.0 Pressure Support Vent 450 Lactic Acid 5.2 H* ASSESSMENT/PLAN: Pt is a 36y/o male with PMH remote TBI with residual epilepsy and history of neurosurgery 2011, noncompliance with medications, and polysubstance abuse who has been admitted for similar and intubated at this institution previously. Pt was BIBEMS after witnessed multiple seizures lasting around 4 min and was found to be in status epilepticus. #Acute Respiratory Failure -O2 sats in 70s in ED -Pt was intubated and started on Propafol drip -Admit to ICU -pulm consult #Status Epilepticus --Pt received 1 dose of Depakene and 1 gm Keppra in ED -Keppra IV 500mg BID -Ativan IVPB 2mg Q4H PRN -neuro consult #JOLIE -Cr 1.7 in ED (baseline 0.5) -f/u urine osm, urine urea -received bolus in ED #UTI -UA pos for protein, glucose, trace keytones, blood #Polysubstance abuse -UA pos for benzos and marijuana #FEN -bolus in ED -lytes wnl -npo #Dispo: admit to ICU Shine Lowe MD PGY-1 Visit type - Emergency Visit Emergency Visit: No - New Patient This patient is new to me today: No - Critical Care Critical Care patient: No
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
[2017-06-08] MEDS ORDERED: SODIUM CHLORIDE 1,000 ML IV SCH ×2 (20:00→20:01)
[2017-06-08] MEDS: HEPARIN NA (PORCINE) 5,000 UNITS/ML 1ML VIAL SQ SCH (21:07)
[2017-06-08] MEDS: MUPIROCIN 2% TOPICAL OINTMENT FOR DECOLONIZATION NS SCH (21:14)
[2017-06-08] MEDS ORDERED: CHLORHEXIDINE GLUCONATE 4% CLEANSER FOR DECOLONIZATION TP SCH (22:00)
[2017-06-08] MEDS ORDERED: levETIRAcetam 500 MG/5 ML INJECTION VIAL IVPB SCH (22:00)
[2017-06-09 07:27] LABS: BASOPHIL 0.3 % (0-2.0); MCH 27.9 pg (25.7-33.7); MCHC 32.4 g/dl (32.0-35.9); MEAN CELL VOLUME 86.3 fl (80-96); MEAN PLT VOLUME 8.5 fl (7.5-11.1); NEUTROPHILS 91.4 % (42.8-82.8); PLATELET COUNT 304 K/MM3 (134-434); RDW 14.8 % (11.9-15.9); WHITE BLOOD COUNT 21.9 K/mm3 (4.0-10.0)
[2017-06-09 07:28] LABS: INR 1.2 (0.82-1.09); PROTHROMBIN TIME (PATIENT) 13.2 SEC (9.98-11.88)
[2017-06-09 07:32] LABS: ALK PHOS 95 U/L (45-117); ANION GAP 10 (8-16); BILIRUBIN,TOTAL 0.6 mg/dL (0.2-1.0); CALCIUM 8.4 mg/dL (8.5-10.1); CO2 23 mmol/L (21-32); CREATININE 0.7 mg/dL (0.7-1.3); GLUCOSE,RANDOM 87 mg/dL (74-106); MAGNESIUM 2.3 mg/dL (1.8-2.4); PHOSPHOROUS 2.4 mg/dL (2.5-4.9); SGOT/AST 270 U/L (15-37); SGPT/ALT 192 U/L (12-78); TOT PROT 5.8 g/dl (6.4-8.2)
[2017-06-09] MEDS ORDERED: ACETAMINOPHEN 325 MG TABLET (FP) PO PRN ×2 (08:25→14:07)
[2017-06-09] MEDS ORDERED: levETIRAcetam 500 MG/5 ML INJECTION VIAL IVPB SCH (08:50)
--- NOTE | 2017-06-09 10:05 | EKG ---
Test Reason : Blood Pressure : / mmHG Vent. Rate : 134 BPM Atrial Rate : 134 BPM P-R Int : 128 ms QRS Dur : 086 ms QT Int : 302 ms P-R-T Axes : 078 072 073 degrees QTc Int : 450 ms SINUS TACHYCARDIA BIATRIAL ENLARGEMENT NONSPECIFIC ST ABNORMALITY ABNORMAL ECG WHEN COMPARED WITH ECG OF 19-SEP-2016 07:06, NO SIGNIFICANT CHANGE WAS FOUND Confirmed by UBALDO GOTTLIEB MD ([id number]) on 06/09/2017 10:05:16 AM Referred By: Confirmed By:UBALDO GOTTLIEB MD
[2017-06-09] MEDS: HEPARIN NA (PORCINE) 5,000 UNITS/ML 1ML VIAL SQ SCH ×2 (10:40→21:25)
[2017-06-09] MEDS: MUPIROCIN 2% TOPICAL OINTMENT FOR DECOLONIZATION NS SCH (10:40)
--- NOTE | 2017-06-09 10:51 | PN ---
Progress Note, Physician Chief Complaint: Respiratory Distress, Seizure History of Present Illness: Pt seen at bedside in no acute distress. Vital signs remain stable. Pt was extubated last night and saturating in 100s on RA. Pt states he has mild pain in area of xiphoid process. He has had no seizure activity since admission. He denies fever, nausea, vomiting, SOB, chest pain, diarrhea or constipation. - Current Medication List Current Medications: Active Medications Acetaminophen (Tylenol -) 325 mg PO Q6H PRN PRN Reason: FEVER OR PAIN Chlorhexidine Gluconate (Hibiclens For Decolonization -) 1 applic TP HS [facility] Last Admin: 06/08/17 21:07 Dose: 1 applic Heparin Sodium (Porcine) (Heparin -) 5,000 unit SQ BID [facility] Last Admin: 06/09/17 10:40 Dose: 5,000 unit Sodium Chloride (Normal Saline -) 1,000 mls @ 75 mls/hr IV ASDIR [facility] Stop: 06/10/17 09:19 Last Admin: 06/08/17 20:25 Dose: 75 mls/hr Levetiracetam (Keppra Injection -) 1,000 mg IVPB BID [facility] Last Admin: 06/09/17 10:37 Dose: 1,000 mg Lorazepam (Ativan Injection -) 2 mg IVPUSH Q4H PRN PRN Reason: ANXIETY Mupirocin (Bactroban Ointment (For Decolonization) -) 1 applic NS BID [facility] Stop: 06/13/17 21:59 Last Admin: 06/09/17 10:40 Dose: 1 applic - Objective Vital Signs: Vital Signs Temperature 98.0 F 06/09/17 00:00 Pulse Rate 88 06/09/17 10:06 Respiratory Rate 21 06/09/17 10:06 Blood Pressure 120/59 06/09/17 10:06 O2 Sat by Pulse Oximetry (%) 100 06/08/17 20:42 Constitutional: Yes: Well Nourished, No Distress, Calm Eyes: Yes: WNL, Conjunctiva Clear, EOM Intact HENT: Yes: WNL, Atraumatic, Normocephalic Neck: Yes: WNL, Supple, Trachea Midline Cardiovascular: Yes: WNL, Regular Rate and Rhythm Respiratory: Yes: WNL, Regular, CTA Bilaterally Gastrointestinal: Yes: WNL, Normal Bowel Sounds, Soft. No: Tenderness Neurological: Yes: WNL, Alert, Oriented, Cran Nerves II-XII Intact. No: Seizure , Tingling, Tremors ...Motor Strength: WNL Psychiatric: Yes: WNL, Alert, Oriented Labs: CBC, BMP 06/09/17 06:00 06/09/17 05:00 INR, PTT INR 1.20 (0.82-1.09) H D 06/09/17 06:00 Assessment/Plan 36 year old male admitted to the ICU for acute respiratory failure s/p seizure. Neuro: -No seizure activity since admission. -increased Keppra to 1 gm BID per Neuro recommendations -d/c'd ativan 2mg IV Q4H PRN; patient has not seized since he has been on the unit -compliance with medications recommended Pulmonary: -patient is saturating well post extubation -monitor O2 saturation -supplemental O2 as needed Gastrointestinal: -Stated to have pain near epigastric/xiphoid region -Tylenol 325mg PRN q6 for pain Renal: -acute kidney injury, creatinine treading down 1.7--> 0.7 -monitor urine output and creatinine levels FEN: -no indication for fluids at this time -phosphorus 2.4, will replete -regular diet -lactic acidosis (5.2) likely due to status epilepticus. trending down 5.2->0.7 Proph: -continue heparin 5000 subq BID -GI prophylaxsis not indicated at this time Dispo: -Patient is stable for transfer to med-surg floors
--- NOTE | 2017-06-09 11:17 | PN ---
Teaching Attending Note Name of Resident: Brent Noriega ATTENDING PHYSICIAN STATEMENT I saw and evaluated the patient. I reviewed the resident's note and discussed the case with the resident. I agree with the resident's findings and plan as documented. SUBJECTIVE: Pt seen and examined in the ICU. Extubated yesterday without incident. No further seizure activity. Denies shortness of breath. OBJECTIVE: Last Vital Signs Temp Pulse Resp BP Pulse Ox 98.0 F 88 21 120/59 100 06/09/17 00:00 06/09/17 10:06 06/09/17 10:06 06/09/17 10:06 06/08/17 20:42 Intake & Output 06/06/17 06/07/17 06/08/17 06/09/17 23:59 23:59 23:59 23:59 Output Total 1400 Balance -1400 Weight 170 lb Gen: NAD at rest Heart: RRR Lung: decreased breath sounds at the bases Abd: soft, nontender Ext: no edema CBC, BMP 06/09/17 06:00 06/09/17 05:00 Active Medications Acetaminophen (Tylenol -) 325 mg PO Q6H PRN PRN Reason: FEVER OR PAIN Chlorhexidine Gluconate (Hibiclens For Decolonization -) 1 applic TP HS [facility] Last Admin: 06/08/17 21:07 Dose: 1 applic Heparin Sodium (Porcine) (Heparin -) 5,000 unit SQ BID [facility] Last Admin: 06/09/17 10:40 Dose: 5,000 unit Sodium Chloride (Normal Saline -) 1,000 mls @ 75 mls/hr IV ASDIR [facility] Stop: 06/10/17 09:19 Last Admin: 06/08/17 20:25 Dose: 75 mls/hr Levetiracetam (Keppra Injection -) 1,000 mg IVPB BID [facility] Last Admin: 06/09/17 10:37 Dose: 1,000 mg Lorazepam (Ativan Injection -) 2 mg IVPUSH Q4H PRN PRN Reason: ANXIETY Mupirocin (Bactroban Ointment (For Decolonization) -) 1 applic NS BID [facility] Stop: 06/13/17 21:59 Last Admin: 06/09/17 10:40 Dose: 1 applic Potassium Phos/Sodium Phos (Phos-Nak Packet -) 1 packet PO BID [facility] Stop: 06/09/17 22:01 ASSESSMENT AND PLAN: Acute Hypoxic Respiratory Failure resolved Status Epilepticus resolved Lactic Acidosis, leukocytosis likely from above Acute Kidney Injury improved Traumatic Brain Injury h/o Polysubstance Abuse - continue antiepileptics per neuro - can stop IVF if tolerating PO - monitor urine output, creatinine - encourage compliance with medications - DVT prophylaxis - can monitor on floor
[2017-06-09] MEDS: NAPH,MB-DB/K PH,MBDB POWDER PACKET PO SCH ×2 (13:00→21:56)
--- NOTE | 2017-06-09 13:15 | PN ---
Physical Exam: SUBJECTIVE: Patient seen and examined at bedside. Pt is much improved since prior visit. Now speaks in sentences and is alert and aware. Pt's was present at bedside. Medication compliance was discussed at length with patient and . They both insist the patient is compliant with Keppra 1000mg BID, but mention that the patient drank "a small bottle" of vodka prior to his episode of seizures. Pt was strongly advised against the use of alcohol especially in light of his seizure disorder. Pt and stated that they are aware that alcohol lowers the effectiveness of his anti-epileptic medication. No other complaints. No acute events overnight. OBJECTIVE: Vital Signs Period Temp Pulse Resp BP Sys/Kay Pulse Ox Last 24 Hr 98 F-99.6 F 75-93 16-21 95-120/55-72 96-100 GENERAL: The patient is awake, alert, and fully oriented, in no acute distress. Speaking in full sentences. HEAD: Normal with no signs of trauma. EYES: PERRL, extraocular movements intact, sclera anicteric, conjunctiva clear. No ptosis. ENT: Ears normal, nares patent, oropharynx clear without exudates, moist mucous membranes. NECK: Trachea midline, full range of motion, supple. LUNGS: Breath sounds equal, clear to auscultation bilaterally, no wheezes, no crackles, no accessory muscle use. HEART: Regular rate and rhythm, S1, S2 without murmur, rub or gallop. ABDOMEN: Soft, nontender, nondistended, normoactive bowel sounds, no guarding, no rebound, no hepatosplenomegaly, no masses. EXTREMITIES: 2+ pulses, warm, well-perfused, no edema. NEUROLOGICAL: Cranial nerves II through XII grossly intact. Normal speech, gait not observed. PSYCH: Normal mood, normal affect. SKIN: Warm, dry, normal turgor, no rashes or lesions noted Laboratory Results - last 24 hr 06/08/17 06/08/17 06/08/17 12:40 13:30 21:45 WBC RBC Hgb Hct MCV MCH MCHC RDW Plt Count MPV Neutrophils % Lymphocytes % Monocytes % Eosinophils % Basophils % INR Sodium Potassium Chloride Carbon Dioxide Anion Gap BUN Creatinine Creat Clearance w eGFR Random Glucose Lactic Acid 5.2 H* 1.1 Calcium Phosphorus Magnesium Total Bilirubin AST ALT Alkaline Phosphatase Creatine Kinase 105 Total Protein Albumin Ur Random Urea Nitrogn 06/08/17 06/09/17 06/09/17 21:55 05:00 05:00 WBC RBC Hgb Hct MCV MCH MCHC RDW Plt Count MPV Neutrophils % Lymphocytes % Monocytes % Eosinophils % Basophils % INR Sodium 139 Potassium 3.8 Chloride 106 Carbon Dioxide 23 D Anion Gap 10 BUN 8 D Creatinine 0.7 D Creat Clearance w eGFR > 60 Random Glucose 87 Lactic Acid 0.7 Calcium 8.4 L Phosphorus 2.4 L D Magnesium 2.3 Total Bilirubin 0.6 D AST 270 H D ALT 192 H D Alkaline Phosphatase 95 D Creatine Kinase Total Protein 5.8 L D Albumin 3.0 L D Ur Random Urea Nitrogn 287 06/09/17 06/09/17 06:00 06:00 WBC 21.9 H RBC 4.69 Hgb 13.1 Hct 40.5 MCV 86.3 MCH 27.9 MCHC 32.4 RDW 14.8 Plt Count 304 MPV 8.5 Neutrophils % 91.4 H D Lymphocytes % 4.7 L D Monocytes % 3.6 L Eosinophils % 0.0 D Basophils % 0.3 INR 1.20 H D Sodium Potassium Chloride Carbon Dioxide Anion Gap BUN Creatinine Creat Clearance w eGFR Random Glucose Lactic Acid Calcium Phosphorus Magnesium Total Bilirubin AST ALT Alkaline Phosphatase Creatine Kinase Total Protein Albumin Ur Random Urea Nitrogn Active Medications Generic Name Dose Route Start Last Admin Trade Name Freq PRN Reason Stop Dose Admin Acetaminophen 325 mg 06/09/17 08:25 Tylenol - PO Q6H PRN FEVER OR PAIN Chlorhexidine Gluconate 1 applic 06/08/17 22:00 06/08/17 21:07 Hibiclens For Decolonization - TP 1 applic HS KOKO Administration Heparin Sodium (Porcine) 5,000 unit 06/08/17 22:00 06/09/17 10:40 Heparin - SQ 5,000 unit BID KOKO Administration Levetiracetam 1,000 mg 06/09/17 08:50 06/09/17 10:37 Keppra Injection - IVPB 1,000 mg BID KOKO Administration Lorazepam 2 mg 06/08/17 13:48 Ativan Injection - IVPUSH Q4H PRN ANXIETY Mupirocin 1 applic 06/08/17 22:00 06/09/17 10:40 Bactroban Ointment (For Decolonization) - NS 06/13/17 21:59 1 applic BID KOKO Administration Potassium Phos/Sodium Phos 1 packet 06/09/17 12:00 Phos-Nak Packet - PO 06/09/17 22:01 BID KOKO ASSESSMENT/PLAN: Pt is a 36y/o male with PMH remote TBI with residual epilepsy and history of neurosurgery 2011, noncompliance with medications, and polysubstance abuse who has been admitted for similar and intubated at this institution previously. Pt was BIBEMS after witnessed multiple seizures lasting around 4 min and was found to be in status epilepticus. #Epilepsy/Status Epilepticus --Pt received 1 dose of Depakene and 1 gm Keppra in ED -Keppra IV 1000mg BID -neuro consult #JOLIE: RESOLVED -Cr 0.7 #Acute Respiratory Failure: RESOLVED -pt extubated without complications -transfer to Med/Surg -pulm consult #UTI -UA pos for protein, glucose, trace keytones, blood #Polysubstance abuse -UA pos for benzos and marijuana #FEN -bolus in ED -lytes wnl -npo #Dispo: admit to ICU Shine Lowe MD PGY-1 Visit type - Emergency Visit Emergency Visit: No - New Patient This patient is new to me today: No - Critical Care Critical Care patient: No - Discharge Referral Referred to [facility] No
[2017-06-09] MEDS ORDERED: LORazepam 2 MG/ML SDV VIAL IVPUSH PRN (14:07)
--- NOTE | 2017-06-09 17:24 | PN ---
Teaching Attending Note Name of Resident: Shine Lowe ATTENDING PHYSICIAN STATEMENT I saw and evaluated the patient. I reviewed the resident's note and discussed the case with the resident. I agree with the resident's findings and plan as documented. SUBJECTIVE: OBJECTIVE: Vital Signs Period Temp Pulse Resp BP Sys/Kay Pulse Ox Last 24 Hr 98.0 F-99.7 F 75-88 16-21 95-120/55-72 96-100 ASSESSMENT AND PLAN: Pt is a 36y/o male with PMHx with epilepsy and history of neurosurgery 2011, noncompliance with medications, and polysubstance abuse who has been admitted for similar and intubated at this institution previously. Pt was witnessed to having multiple seizures lasting around 4 min and was found to be in status epilepticus. # Acute respiratory failure s/p intubation sedated onn Propofol drip ,sedated further management per ICU team #Status epilepticus on ativan prn, keppra IV, neuro consult -Keppra IV 500mg BID ;Ativan IVPB 2mg Q4H PRN; neuro consult #JOLIE ;Cr 1.7 in ED (baseline 0.5); IVF #Polysubstance abuse UA pos for benzos and marijuana DVT Px: Cds admit to ICU
[2017-06-09] MEDS: levETIRAcetam 500 MG/5 ML INJECTION VIAL IVPB SCH (21:24)
[2017-06-09] MEDS: PHENYTOIN NA EXTENDED 100 MG CAPSULE (FP) PO SCH (21:56)
[2017-06-10] MEDS: PHENYTOIN NA EXTENDED 100 MG CAPSULE (FP) PO SCH ×2 (06:20→13:53)
[2017-06-10 07:49] LABS: BASOPHIL 0.5 % (0-2.0); EOSINOPHIL 1.9 % (0-4.5); MCH 27.9 pg (25.7-33.7); MCHC 32.4 g/dl (32.0-35.9); MEAN CELL VOLUME 86.1 fl (80-96); NEUTROPHILS 82.3 % (42.8-82.8); PLATELET COUNT 272 K/MM3 (134-434); RDW 14.4 % (11.9-15.9); WHITE BLOOD COUNT 11.1 K/mm3 (4.0-10.0)
[2017-06-10 08:20] LABS: ALBUMIN 3.1 g/dl (3.4-5.0); ANION GAP 7 (8-16); CALCIUM 8.3 mg/dL (8.5-10.1); CO2 28 mmol/L (21-32); CREATININE 0.6 mg/dL (0.7-1.3); GLUCOSE,RANDOM 86 mg/dL (74-106); SGOT/AST 261 U/L (15-37); SGPT/ALT 245 U/L (12-78)
[2017-06-10 08:21] LABS: ALK PHOS 93 U/L (45-117); BILIRUBIN,TOTAL 0.8 mg/dL (0.2-1.0); TOT PROT 6.1 g/dl (6.4-8.2)
[2017-06-10] MEDS: HEPARIN NA (PORCINE) 5,000 UNITS/ML 1ML VIAL SQ SCH (09:33)
[2017-06-10] MEDS: levETIRAcetam 500 MG/5 ML INJECTION VIAL IVPB SCH (09:33)
[2017-06-10 09:39] VITALS: BP 122/75; PULSE 80; TEMP 99.1
--- NOTE | 2017-06-10 12:04 | DS ---
Physical Exam: SUBJECTIVE: Patient seen and examined at bedside. No acute events overnight. Pt has no complaints at this time. Denies headache, nausea, vomiting, fevers. OBJECTIVE: Vital Signs Period Temp Pulse Resp BP Sys/Kay Pulse Ox Last 24 Hr 99 F-99.7 F 68-86 18-20 96-122/61-75 96-96 PHYSICAL EXAM GENERAL: The patient is awake, alert, and fully oriented, in no acute distress. Speaking in full sentences. HEAD: Normal with no signs of trauma. EYES: sclera anicteric, conjunctiva clear. No ptosis. ENT: nares patent, oropharynx clear without exudates, moist mucous membranes. NECK: Trachea midline, full range of motion, supple. LUNGS: Breath sounds equal, clear to auscultation bilaterally, no wheezes, no crackles, no accessory muscle use. HEART: Regular rate and rhythm, S1, S2 without murmur, rub or gallop. ABDOMEN: Soft, nontender, nondistended, normoactive bowel sounds, no guarding, no rebound, no hepatosplenomegaly, no masses. EXTREMITIES: 2+ pulses, warm, well-perfused, no edema. NEUROLOGICAL: Cranial nerves II through XII grossly intact. Normal speech, gait not observed. PSYCH: Normal mood, normal affect. SKIN: Warm, dry, normal turgor, no rashes or lesions noted LABS Laboratory Results - last 24 hr 06/09/17 06/09/17 06/10/17 18:30 20:15 07:30 WBC 11.1 H D RBC 4.63 Hgb 12.9 Hct 39.8 MCV 86.1 MCH 27.9 MCHC 32.4 RDW 14.4 Plt Count 272 MPV 8.0 Neutrophils % 82.3 Lymphocytes % 9.0 D Monocytes % 6.3 Eosinophils % 1.9 D Basophils % 0.5 Sodium Potassium Chloride Carbon Dioxide Anion Gap BUN Creatinine Creat Clearance w eGFR Random Glucose Calcium Total Bilirubin AST ALT Alkaline Phosphatase Total Protein Albumin Phenytoin Cancelled < 2.5 L 06/10/17 07:30 WBC RBC Hgb Hct MCV MCH MCHC RDW Plt Count MPV Neutrophils % Lymphocytes % Monocytes % Eosinophils % Basophils % Sodium 139 Potassium 3.8 Chloride 104 Carbon Dioxide 28 D Anion Gap 7 L BUN 8 Creatinine 0.6 L Creat Clearance w eGFR > 60 Random Glucose 86 Calcium 8.3 L Total Bilirubin 0.8 D AST 261 H ALT 245 H D Alkaline Phosphatase 93 Total Protein 6.1 L Albumin 3.1 L Phenytoin HOSPITAL COURSE: Date of Admission:06/08/17 Date of Discharge: 06/10/17 Pt is a 36y/o male with PMH remote TBI with residual epilepsy and history of neurosurgery 2011, noncompliance with medications, and polysubstance abuse who has been admitted for similar and intubated at this institution previously. Pt was BIBEMS after witnessed multiple seizures lasting around 4 min and was found to be in status epilepticus. The patient received 1 dose of Depakene and 1 gm Keppra in ED. The pt's medications were reconciled and pt was started on home meds, Keppra 1000mg BID & Dilantin 100mg TID. The patient came to the ED with JOLIE, which resolved promptly. The patient came to the ED with acute respiratory failure. Pt was intubated, transferred to the ICU and extubated without complication. There was suspicion for UTI, but UCx was negative. The patient and were counselled extensively on the importance of medication compliance and avoidance of alcohol and taking 's meds. Shine Lowe MD PGY-1 Minutes to complete discharge: 45 Discharge Summary Reason For Visit: ACUTE RESPIRATORY FAILURE W/HYPOXIA, SEIZURE DISOR Current Active Problems Acute respiratory failure with hypoxia (Acute) Status epilepticus (Acute) Condition: Stable - Instructions Diet, Activity, Other Instructions: Please make sure you follow up on all your doctors' appointments, and make sure you take all your medication as directed. Do not drink alcohol as this can make you more likely to have seizures. Do not take any prescription medication that was not prescribed to you. If your symptoms get worse or if you develop new symptoms, please return to the emergency department. Referrals: Ann Beltrán MD [Staff Physician] - 1 Week Disposition: HOME - Home Medications Comprehensive Discharge Medication List: Ambulatory Orders Levetiracetam [Keppra -] 500 mg PO BID #14 tablet 10/19/16 Acetaminophen [Tylenol .Regular Strength -] 650 mg PO Q6H PRN #0 tablet Dicyclomine HCl [Bentyl -] 10 mg PO BID #8 capsule 01/31/17 Levofloxacin [Levaquin -] 500 mg PO DAILY #5 tablet 01/31/17 Metronidazole [Flagyl -] 500 mg PO Q8H #15 tablet 01/31/17 Magnesium Citrate [Citroma -] 300 ml PO ONCE #10 bottle 02/05/17 Sodium Phosphate/Na Biphos [Fleet Adult Rectal Enema -] 133 ml RC ONCE #2 enema 02/05/17 Phenytoin Na Extended [Dilantin -] 100 mg PO TID #0 cap 06/10/17 This patient is new to me today: No Emergency Visit: No Critical Care patient: No - Discharge Referral Referred to [facility] No
--- NOTE | 2017-06-10 14:50 | PN ---
Teaching Attending Note Name of Resident: Shine Lowe ATTENDING PHYSICIAN STATEMENT I saw and evaluated the patient. I reviewed the resident's note and discussed the case with the resident. I agree with the resident's findings and plan as documented. SUBJECTIVE: OBJECTIVE: Vital Signs Period Temp Pulse Resp BP Sys/Kay Pulse Ox Last 24 Hr 99 F-99.1 F 68-81 18-20 97-122/61-75 96-98 ASSESSMENT AND PLAN:
[2017-06-10 17:33] LABS: PHOSPHOROUS 2.1 mg/dL (2.5-4.9)
== END 2017-06-10 13:56 | disposition home or self-care (01) | DRG 133 ==
LOC: JER 09:10 → JERBED 11:39 → JICU 14:21 → J5S 06-09 15:59
PROVIDERS: ADMIT Internal Medicine; ATTEND Internal Medicine
PROC: 0BH17EZ Insertion of Endotracheal Airway into Trachea, Via Natural or Artificial Opening (ICD-10-PCS; principal; 2017-06-08)
PROC: 5A1935Z Respiratory Ventilation, Less than 24 Consecutive Hours (ICD-10-PCS; 2017-06-08)
DX: J96.01 Acute respiratory failure with hypoxia (principal); N17.9 Acute kidney failure, unspecified; F19.10 Other psychoactive substance abuse, uncomplicated; G40.901 Epilepsy, unspecified, not intractable, with status epilepticus; E87.2 Acidosis; R80.9 Proteinuria, unspecified; F11.20 Opioid dependence, uncomplicated; D72.828 Other elevated white blood cell count; F12.10 Cannabis abuse, uncomplicated; R31.9 Hematuria, unspecified; F10.10 Alcohol abuse, uncomplicated; F07.81 Postconcussional syndrome; F13.10 Sedative, hypnotic or anxiolytic abuse, uncomplicated; G93.89 Other specified disorders of brain; Z87.820 Personal history of traumatic brain injury; Z91.19 Patient's noncompliance with other medical treatment and regimen
CPT/HCPCS: 36415; 36600; 70450-TC; 71010-TC; 80053; 80185; 80307; 81003; 81015; 82803; 83605; 83735; 83935; 84100; 84484; 84540; 85025; 85610; 85730; 86850; 86900; 86901; 87040; 87086; 90670; 93005; 93010; 99285-25; J1644

== ENCOUNTER 2017-10-13 12:18 | Emergency (ER) | payer OTHER ==
[2017-10-13 12:39] VITALS: BP 132/64; PULSE 108; TEMP 99; BMI 20.2
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
[2017-10-13] MEDS ORDERED: DIPHTH,PERTUSS(ACELL),TET 0.5 ML DISP.SYRIN IM ONE (15:45)
[2017-10-13] MEDS ORDERED: ONDANSETRON *ODT* 4 MG TABLET SL ONE (17:07)
== END 2017-10-13 17:10 | disposition home or self-care (01) ==
LOC: JER 12:18
PROC: 0HQ0XZZ Repair Scalp Skin, External Approach (ICD-10-PCS; principal; 2017-10-13)
PROC: 3E0234Z Introduction of Serum, Toxoid and Vaccine into Muscle, Percutaneous Approach (ICD-10-PCS; 2017-10-13)
DX: S01.01XA Laceration without foreign body of scalp, initial encounter (principal); S40.012A Contusion of left shoulder, initial encounter; Y08.02XA Assault by strike by baseball bat, initial encounter; Y93.89 Activity, other specified; Y92.89 Other specified places as the place of occurrence of the external cause; Y99.8 Other external cause status
CPT/HCPCS: 70450-TC; 72125-TC; 73030-TC-LT; 90715; 99282-25

== ENCOUNTER 2017-11-01 12:31 | Inpatient (IN) | payer OTHER ==
[2017-11-01] MEDS ORDERED: LORazepam 2 MG/ML SDV VIAL ONE ×3 (12:35→13:48)
--- NOTE | 2017-11-01 12:39 | PDOC ---
History of Present Illness - General Stated Complaint: SEIZURE Time Seen by Provider: 11/01/17 12:35 - History of Present Illness Initial Comments: 11/01/17 12:35 37 yo M with h/o seizure disorder, alcohol, and polysubstance abuse who presents with Past History - Past Medical History Allergies/Adverse Reactions: Allergies Allergy/AdvReac Type Severity Reaction Status Date / Time No Known Allergies Allergy Verified 10/13/17 12:35 Home Medications: Ambulatory Orders Levetiracetam [Keppra -] 500 mg PO BID #14 tablet 10/19/16 Phenytoin Na Extended [Dilantin -] 100 mg PO TID #0 cap 06/10/17 Cardiac Disorders: No CVA: No COPD: No Seizures: Yes - Immunization History Immunization Up to Date: Yes - Suicide/Smoking/Psychosocial Hx Smoking History: Unknown if ever smoked Have you smoked in the past 12 months: No Number of Cigarettes Smoked Daily: 5 Cigars Per Day: 0 Hx Alcohol Use: No Drug/Substance Use Hx: No Substance Use Type: Alcohol, Marijuana Hx Substance Use Treatment: No Review of Systems - Review of Systems Comments:: 11/01/17 12:39 GENERAL/CONSTITUTIONAL: No fever or chills. No weakness. HEAD, EYES, EARS, NOSE AND THROAT: No change in vision. No ear pain or discharge. No sore throat.- CARDIOVASCULAR: No chest pain or shortness of breath RESPIRATORY: No cough, wheezing, or hemoptysis. GASTROINTESTINAL: No nausea, vomiting, diarrhea or constipation. GENITOURINARY: No dysuria, frequency, or change in urination. MUSCULOSKELETAL: No joint or muscle swelling or pain. No neck or back pain. SKIN: No rash NEUROLOGIC: No headache, vertigo, loss of consciousness, or change in strength/ sensation. ENDOCRINE: No increased thirst. No abnormal weight change HEMATOLOGIC/LYMPHATIC: No anemia, easy bleeding, or history of blood clots. ALLERGIC/IMMUNOLOGIC: No hives or skin allergy. *Physical Exam - Physical Exam Comments: 11/01/17 12:39 GENERAL: Awake, alert, and fully oriented, in no acute distress HEAD: No signs of trauma, normocephalic, atraumatic EYES: PERRLA, EOMI, sclera anicteric, conjunctiva clear ENT: Auricles normal inspection, hearing grossly normal, nares patent, oropharynx clear without exudates. Moist mucosa NECK: Normal ROM, supple, no lymphadenopathy, JVD, or masses LUNGS: No distress, speaks full sentences, clear to auscultation bilaterally HEART: Regular rate and rhythm, normal S1 and S2, no murmurs, rubs or gallops, peripheral pulses normal and equal bilaterally. ABDOMEN: Soft, nontender, normoactive bowel sounds. No guarding, no rebound. No masses EXTREMITIES : Normal inspection, Normal range of motion, no edema. No clubbing or cyanosis. NEUROLOGICAL: Cranial nerves II through XII grossly intact. Normal speech, normal gait, no focal sensorimotor deficits SKIN: Warm, Dry, normal turgor, no rashes or lesions noted.
[2017-11-01] MEDS ORDERED: PROPOFOL 1,000,000 MCG/100 ML VIAL IVPB SCH (12:45)
[2017-11-01] MEDS ORDERED: levETIRAcetam 500 MG/5 ML INJECTION VIAL IVPB ONE ×2 (12:49→13:30)
[2017-11-01 12:52] VITALS: BMI 20.2
[2017-11-01] MEDS ORDERED: ACETAMINOPHEN 1000 MG/100 ML VIAL (NON FORMULARY) IVPB ONE ×2 (12:56→16:57)
[2017-11-01] MEDS ORDERED: ACETAMINOPHEN INJECTION 100 ML IVPB ONE ×2 (12:57→12:59)
[2017-11-01 13:00] LABS: BASO % 0.8 % (0-2.0); EOS % 0.9 % (0-4.5); HEMATOCRIT 39.7 % (35.4-49); HEMOGLOBIN 12.6 GM/dL (11.7-16.9); LYMPH % 12.3 % (8-40); MCH 27.7 pg (25.7-33.7); MCHC 31.7 g/dl (32.0-35.9); MEAN CELL VOLUME 87.3 fl (80-96); MEAN PLT VOLUME 7.5 fl (7.5-11.1); MONO % 11.8 % (3.8-10.2); NEUT % 74.2 % (42.8-82.8); PLATELET COUNT 433 K/MM3 (134-434); RBC 4.55 M/mm3 (4.00-5.60); RDW 14.6 % (11.9-15.9); WHITE BLOOD COUNT 12.2 K/mm3 (4.0-10.0)
[2017-11-01] MEDS ORDERED: ETOMIDATE 20 MG/10 ML AMPUL IVPUSH ONE (13:01)
[2017-11-01] MEDS ORDERED: SUCCINYLCHOLINE CHLORIDE 200 MG/10 ML VIAL ONE (13:02)
[2017-11-01 13:28] LABS: ALBUMIN 3.7 g/dl (3.4-5.0); ALK PHOS 126 U/L (45-117); ANION GAP 14 (8-16); BILIRUBIN,TOTAL 0.4 mg/dL (0.2-1.0); BLOOD UREA NITROGEN 16 mg/dL (7-18); CALCIUM 8.2 mg/dL (8.5-10.1); CHLORIDE 103 mmol/L (98-107); CO2 22 mmol/L (21-32); CREATININE 1.1 mg/dL (0.7-1.3); GLUCOSE,RANDOM 146 mg/dL (74-106); MAGNESIUM 2.3 mg/dL (1.8-2.4); POTASSIUM 4.1 mmol/L (3.5-5.1); SGOT/AST 23 U/L (15-37); SGPT/ALT 28 U/L (12-78); SODIUM 139 mmol/L (136-145); TOT PROT 7.2 g/dl (6.4-8.2)
[2017-11-01] MEDS ORDERED: PROPOFOL 200 MG/20 ML VIAL IVPUSH ONE ×5 (13:39→14:25)
[2017-11-01 13:50] LABS: INR 0.87 (0.82-1.09); PROTHROMBIN TIME (PATIENT) 9.8 SEC (9.98-11.88)
--- NOTE | 2017-11-01 13:51 | PDOC ---
History of Present Illness - General Chief Complaint: Seizure Stated Complaint: SEIZURE Time Seen by Provider: 11/01/17 12:35 History Source: Family - History of Present Illness Initial Comments: 11/01/17 13:39 Majority of history obtained from patient's @ bedside. Patient is a 37 y.o. male with a PMH of Epilepsy (on Keppra, last seizure 5 months previous) BIBEMS following a likely seizure today at a local dining establishment. Patient has a h/o daily marijuana use and used alcohol this morning. EMS intubated patient in the field following failure to medically control seizure activity with Versed (5 mg). Intubation with Etomidate/ Succinate. Past History - Past Medical History Allergies/Adverse Reactions: Allergies Allergy/AdvReac Type Severity Reaction Status Date / Time No Known Allergies Allergy Verified 11/01/17 12:51 Home Medications: Ambulatory Orders Unobtainable [Unobtainable] 11/01/17 Cardiac Disorders: No CVA: No COPD: No Seizures: Yes Other medical history: drug abuse - Immunization History Immunization Up to Date: Yes - Suicide/Smoking/Psychosocial Hx Smoking History: Unknown if ever smoked Have you smoked in the past 12 months: No Number of Cigarettes Smoked Daily: 5 Cigars Per Day: 0 Information on smoking cessation initiated: No Hx Alcohol Use: No Drug/Substance Use Hx: No Substance Use Type: Alcohol, Marijuana Hx Substance Use Treatment: No Review of Systems - Review of Systems Able to Perform ROS?: No (Patient intubated) *Physical Exam - Vital Signs Last Vital Signs Temp Pulse Resp BP Pulse Ox 100.9 F H 140 H 18 125/93 100 11/01/17 13:23 11/01/17 12:36 11/01/17 12:36 11/01/17 12:36 11/01/17 12:36 - Physical Exam HEENT: positive: DARRELL, Other (B/L myadriasis, (-) Roque sign, Tooth #8 partially chipped, multiple oral lacerations - non-hemorrhagic) Neck: positive: Carotid bruit (, Tooth #8 chipped, small non-hemmoraghing oral laceration) Respiratory/Chest: positive: Lungs Clear Cardiovascular: positive: S1, S2, Tachycardia Vascular Pulses: Dorsalis-Pedis (R): 2+, Doralis-Pedis (L): 2+ Gastrointestinal/Abdominal: positive: Normal Bowel Sounds, Soft Extremity: positive: Normal Capillary Refill, Normal Inspection Integumentary: positive: Normal Color, Dry, Warm Neurologic: positive: Other ED Treatment Course - LABORATORY CBC & Chemistry Diagram: 11/01/17 12:54 11/01/17 12:54 - ADDITIONAL ORDERS Additional order review: Laboratory Results 11/01/17 12:54 Sodium 139 Potassium 4.1 Chloride 103 Carbon Dioxide 22 D Anion Gap 14 BUN 16 D Creatinine 1.1 D Creat Clearance w eGFR > 60 Random Glucose 146 H D Calcium 8.2 L Magnesium 2.3 Total Bilirubin 0.4 D AST 23 D ALT 28 D Alkaline Phosphatase 126 H D Total Protein 7.2 Albumin 3.7 11/01/17 12:54 RBC 4.55 MCV 87.3 MCHC 31.7 L RDW 14.6 MPV 7.5 Neutrophils % 74.2 Lymphocytes % 12.3 D Monocytes % 11.8 H D Eosinophils % 0.9 Basophils % 0.8 - RADIOLOGY Radiology Studies Ordered: Category Date Time Status HEAD CT WITHOUT CONTRAST [CT] Stat CT Scan 11/01/17 12:37 Taken - Medications Given in the ED: ED Medications Discontinued Medications Generic Name Dose Route Start Last Admin Trade Name Freq PRN Reason Stop Dose Admin Acetaminophen 1,000 mg 11/01/17 12:56 11/01/17 13:00 Ofirmev Injection - IVPB 11/01/17 12:57 1,000 mg ONCE ONE Administration Levetiracetam 1,000 mg 11/01/17 12:49 11/01/17 13:37 Keppra Injection - IVPB 11/01/17 12:50 1,000 mg ONCE ONE Administration Medical Decision Making - Medical Decision Making 11/01/17 14:27 Patient is a 37 y.o. male who presents following a witnessed seizure. At presentation patient is intubated. Seizure control with Ativan and Propofol drip + bolus. Case d/w Dr. Holguin neurology, agrees with OTD of Keppra given in ED and suggests Keppra 1500 BID as well as continuing Dilantin (1 gm QD). Patient extubated in ED w/ Dr. Pisano (ICU), alert, hemodynamically stable. Admitted to Dr. Austin - observation. Will continue to monitor while in ED. Patient initially febrile (101 @ presentation) -- clinical suspicion for fever 2 /2 seizure activity, however s/p Tylenol patient rectal temp 103. No obvious source fever (no ulcer, UA negative) - possibly 2/2 to aspiration pneumonia. Broad spectrum Abx initiated. S/p 3 L NS, will continue maintenance fluids. Case d/w Dr. Austin- will upgrade admission to inpatient medicine service. Will continue to monitor while in ED. Patient signed out to Dr. Reed (Resident ) and Dr. Narvaez (Attending). 4 *DC/Admit/Observation/Transfer Diagnosis at time of Disposition: Seizure - Discharge Dispostion Condition at time of disposition: Fair Admit: Yes - Referrals - Patient Instructions - Post Discharge Activity
[2017-11-01 13:55] LABS: URINE APPEARANCE CLEAR; URINE BILIRUBIN NEGATIVE (NEGATIVE); URINE BLOOD 1+ (NEGATIVE); URINE COLOR STRAW; URINE GLUCOSE (UA) 1+ (NEGATIVE); URINE KETONE NEGATIVE (NEGATIVE); URINE LEUK ESTERASE NEGATIVE (NEGATIVE); URINE NITRITE NEGATIVE (NEGATIVE); URINE UROBILINOGEN NEGATIVE mg/dL (0.2-1.0)
[2017-11-01 13:59] LABS: URINE PROTEIN 1+ (NEGATIVE)
[2017-11-01 14:01] LABS: URINE BACTERIA RARE /hpf (NONE SEEN); URINE HYALINE CAST 2 /lpf; URINE MUCUS RARE
--- NOTE | 2017-11-01 14:12 | PDOC ---
Attending Attestation - HPI HPI: 11/01/17 14:13 The patient is a 37 year old male, with a significant past medical history of seizures and polysubstance abuse, who presents to the emergency department BIBA s/p seizures this morning. Patient was found to be seizing while at [employer] with this morning. EMS was activated and during transport patient was given 5 mg Versed, 20 mg Etomidate, and 100 mg of succinate. Patient arrived to the ED intubated by EMS. As per , patient was last known well last night. reports patient consumed ETOH prior to seizures. - Physicial Exam PE: 11/01/17 14:33 Vitals: Triage vital signs reviewed General Appearance: Intubated. well nourished, well developed Head: Atraumatic Eyes: Pupils equal reactive round, extraocular movement intact Neck: Supple; No nuchal rigidity Chest Wall: Nontender Cardiac: Regular rate and rhythm, no murmurs, no rubs, no gallops Lungs: Clear to auscultation bilateral, good air movement bilaterally Abdomen: Soft, nondistended, normal bowel sounds, nontender to palpation Skin: Warm and dry, no rashes or lesions, no rash, no petechiae Neuro: Intubated. Moving all extremities. 11/01/17 16:14 Repeat Physical General Appearance: No acute distress, well nourished, well developed, Febrile, pt has no complaints at this time. Head: Atraumatic Eyes: Pupils equal reactive round, extraocular movement intact Neck: Supple; No nuchal rigidity Chest Wall: Nontender Cardiac: Regular rate and rhythm, no murmurs, no rubs, no gallops Lungs: Clear to auscultation bilateral, good air movement bilaterally Abdomen: Soft, nondistended, normal bowel sounds, nontender to palpation Psych: Normal mood, normal affect - Critical Care Time Total Critical Care Time: 60 Critical Care Statement: The care of this patient involved high complexity decision making to prevent further life threatening deterioration of the patient 's condition and/or to evaluate & treat vital organ system(s) failure or risk of failure. - Medical Decision Making 11/01/17 14:13 Pt is a 37 year old male, with a significant past medical history of seizures and polysubstance abuse, who presents to the emergency department BIBA s/p seizures this morning. Plan: -Head CT -CXR -CBC -CMP -Lactic -Drug tox EXAM: Head CT INTERPRETED BY: Dr. Hill REVIEWED BY: Dr. June IMPRESSION: No significant interval change since prior CT scan of the head dated 10/13/2017. Correlation with MRI of the brain would be more sensitive in view of prior MRI of the brain findings dated 09/20/2016 EXAM: CXR INTERPRETED BY: Dr. Jett REVIEWED BY: Dr. June IMPRESSION: Interval removal of the nasogastric tube. Endotracheal tube tip is in satisfactory position. The lung is well aerated without evidence of acute lung disease Documentation prepared by Florinda Crowder, acting as medical massage therapist for Iker June MD, /DO. <Florinda Crowder - Last Filed: 11/01/17 16:14> - Resident Resident Name: Vi Casas - ED Attending Attestation I have performed the following: I have examined & evaluated the patient, The case was reviewed & discussed with the resident, I agree w/resident's findings & plan, Exceptions are as noted - Critical Care Time Total Critical Care Time: 60 Critical Care Statement: The care of this patient involved high complexity decision making to prevent further life threatening deterioration of the patient 's condition and/or to evaluate & treat vital organ system(s) failure or risk of failure. - Medical Decision Making Patient presented to the emergency department after having 2 seizures noted to have agonal respirations in the field decision made by EMS to intubate patient. Upon arrival patient biting on tube fighting sedated with additional Ativan and propofol. No focal findings on exam. L.front tooth chipped. Patient loaded with Keppra IV for seizure prophylaxis Reevaluation head CT with no acute findings patient remained tachycardic placed on propofol drip additional boluses and when necessary Ativan given Reevaluation laboratory analysis notable for elevated lactic thought to be secondary to multiple seizures Reevaluation patient now with fever Tylenol given IV boluses given empirically covered with Zosyn Reevaluation patient more wake taken off propofol drip answering questions alert normal ABG able to be extubated in the emergency department Patient tolerated extubation well no complaints at this time neck is supple benign abdominal examination no acute findings to account for the possibility of infectious etiology or seizure of patient's seizure at this time Mentating normally no complaints of headache supple neck low suspicion for meningitis patient admitted to medicine for further management ICU consulting and aware of case, neurology following as well <Iker June - Last Filed: 11/05/17 23:20>
[2017-11-01 14:25] LABS: ARTERIAL BLD GAS O2 SATURATION 99.7 % (90-98.9); ARTERIAL BLOOD GAS BASE EXCESS 0.2 meq/l (-2-2); ARTERIAL BLOOD GAS PCO2 36.6 mmHg (35-45); ARTERIAL BLOOD GAS pH 7.43 (7.35-7.45); CARBOXYHEMOGLOBIN 0.9 gm% (0.5-2.0)
[2017-11-01 14:30] LABS: ALLENS TEST POSITIVE
[2017-11-01 14:46] LABS: COCAINE, UR NEGATIVE ng/ml (CUTOFF=300); METHADONE, UR NEGATIVE ng/ml (CUTOFF=300); OPIATES, URI NEGATIVE ng/ml (CUTOFF=300); PHENCYCLIDINE,URINE NEGATIVE ng/ml (CUTOFF=25); URINE AMPHETAMINES NEGATIVE ng/ml (CUTOFF=500); URINE BARBITURATES NEGATIVE ng/ml (CUTOFF=200); URINE BENZODIAZEPINES POSITIVE ng/ml (CUTOFF=200)
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
[2017-11-01] MEDS ORDERED: PHENYTOIN SODIUM 100 MG/2 ML VIAL IVPB ONE (15:08)
[2017-11-01] MEDS ORDERED: SODIUM CHLORIDE 0.9% 1000 ML INFUS.BAG IV ONE (15:28)
[2017-11-01] MEDS ORDERED: SODIUM CHLORIDE 0.9% 500 ML INFUS.BAG IV ONE ×2 (15:29)
[2017-11-01] MEDS ORDERED: PIPERACIL/TAZOB 3.375 GM 3.375 GM/50 ML PREMIX IVPB ONE (15:54)
[2017-11-01] MEDS ORDERED: PHENYTOIN SODIUM IVPB ONE (16:00)
[2017-11-01] MEDS ORDERED: SODIUM CHLORIDE IVPB ONE (16:00)
[2017-11-01] MEDS ORDERED: PHENYTOIN SODIUM INJECTION 1,000 MG in SODIUM CHLORIDE 100 ML IVPB ONE (16:00)
[2017-11-01] MEDS ORDERED: PIPERACILLIN/TAZOB 3.375 GM 3.375 GM/50 ML BAG IVPB ONE (16:01)
--- NOTE | 2017-11-01 16:03 | HP ---
Admitting History and Physical - Primary Care Physician PCP: Amy Austin - Admission History of Present Illness: 37 year old male, with a significant past medical history of seizures and polysubstance abuse, who presents to the emergency department BIBA s/p seizures this morning. Patient was found to be seizing while at [employer] with this morning. EMS was activated and during transport patient was given 5 mg Versed, 20 mg Etomidate, and 100 mg of succinate. Patient arrived to the ED intubated by EMS. As per , patient was last known well last night. reports patient consumed ETOH prior to seizures. 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 No: GI Bleed Psych: Yes: Addictions (PSA), Other (ADHD) - Smoking History Smoking history: Unknown if ever smoked Have you smoked in the past 12 months: No Aproximately how many cigarettes per day: 5 - Alcohol/Substance Use Hx Alcohol Use: No - Social History ADL: Independent History of Recent Travel: No Home Medications - Allergies Allergies/Adverse Reactions: Allergies Allergy/AdvReac Type Severity Reaction Status Date / Time No Known Allergies Allergy Verified 11/01/17 12:51 - Home Medications Home Medications: Ambulatory Orders Unobtainable [Unobtainable] 11/01/17 Physical Examination Vital Signs: Vital Signs Temperature 103.1 F H 11/01/17 15:53 Pulse Rate 119 H 11/01/17 15:43 Respiratory Rate 16 11/01/17 15:43 Blood Pressure 115/73 11/01/17 15:43 O2 Sat by Pulse Oximetry (%) 100 11/01/17 15:43 Constitutional: Yes: No Distress HENT: Yes: Atraumatic Neck: Yes: Supple Cardiovascular: Yes: Regular Rate and Rhythm Respiratory: Yes: Rhonchi Gastrointestinal: Yes: Normal Bowel Sounds Extremities: Yes: WNL Edema: No Peripheral Pulses WNL: Yes Neurological: Yes: Other (drowsy) Labs: CBC, BMP 11/01/17 12:54 11/01/17 12:54 Problem List - Problems (1) Seizure Assessment/Plan: on meds monitor seizure precaution neuro eval on abx for aspiration pna Code(s): R56.9 - UNSPECIFIED CONVULSIONS (2) Acute respiratory failure with hypoxia Assessment/Plan: pt extubated stable on nc Code(s): J96.01 - ACUTE RESPIRATORY FAILURE WITH HYPOXIA (3) Alcohol abuse Assessment/Plan: watch for withdrawl will get detox consult Code(s): F10.10 - ALCOHOL ABUSE, UNCOMPLICATED (4) Substance abuse Code(s): F19.10 - OTHER PSYCHOACTIVE SUBSTANCE ABUSE, UNCOMPLICATED Assessment/Plan Laboratory Tests 11/01/17 11/01/17 11/01/17 12:54 12:54 12:54 WBC 12.2 H RBC 4.55 Hgb 12.6 Hct 39.7 MCV 87.3 MCH 27.7 MCHC 31.7 L RDW 14.6 Plt Count 433 D MPV 7.5 Neutrophils % 74.2 Lymphocytes % 12.3 D Monocytes % 11.8 H D Eosinophils % 0.9 Basophils % 0.8 PT with INR 9.80 L INR 0.87 Puncture Site ABG pH ABG pCO2 at Pt Temp ABG pO2 at Pt Temp ABG HCO3 ABG O2 Sat (Measured) ABG O2 Content ABG Base Excess Sulaiman Test Carboxyhemoglobin Methemoglobin O2 Delivery Device Oxygen Flow Rate Vent Mode Vent Rate Mechanical Rate PEEP Pressure Support Vent Sodium 139 Potassium 4.1 Chloride 103 Carbon Dioxide 22 D Anion Gap 14 BUN 16 D Creatinine 1.1 D Creat Clearance w eGFR > 60 Random Glucose 146 H D Lactic Acid Calcium 8.2 L Magnesium 2.3 Total Bilirubin 0.4 D AST 23 D ALT 28 D Alkaline Phosphatase 126 H D Total Protein 7.2 Albumin 3.7 Urine Color Urine Appearance Urine pH Ur Specific Fleming Urine Protein Urine Glucose (UA) Urine Ketones Urine Blood Urine Nitrite Urine Bilirubin Urine Urobilinogen Ur Leukocyte Esterase Urine WBC (Auto) Urine RBC (Auto) Urine Bacteria Hyaline Casts Urine Mucus Opiates Screen Methadone Screen Barbiturate Screen Phencyclidine Screen Ur Amphetamines Screen MDMA (Ecstasy) Screen Benzodiazepines Screen Cocaine Screen U Marijuana (THC) Screen Blood Type Antibody Screen 11/01/17 11/01/17 11/01/17 12:54 12:54 13:00 WBC RBC Hgb Hct MCV MCH MCHC RDW Plt Count MPV Neutrophils % Lymphocytes % Monocytes % Eosinophils % Basophils % PT with INR INR Puncture Site ABG pH ABG pCO2 at Pt Temp ABG pO2 at Pt Temp ABG HCO3 ABG O2 Sat (Measured) ABG O2 Content ABG Base Excess Sulaiman Test Carboxyhemoglobin Methemoglobin O2 Delivery Device Oxygen Flow Rate Vent Mode Vent Rate Mechanical Rate PEEP Pressure Support Vent Sodium Potassium Chloride Carbon Dioxide Anion Gap BUN Creatinine Creat Clearance w eGFR Random Glucose Lactic Acid 9.4 H* Calcium Magnesium Total Bilirubin AST ALT Alkaline Phosphatase Total Protein Albumin Urine Color Straw Urine Appearance Clear Urine pH 5.0 Ur Specific Fleming 1.013 Urine Protein 1+ H D Urine Glucose (UA) 1+ H Urine Ketones Negative Urine Blood 1+ H Urine Nitrite Negative Urine Bilirubin Negative Urine Urobilinogen Negative Ur Leukocyte Esterase Negative Urine WBC (Auto) 2 Urine RBC (Auto) <1 Urine Bacteria Rare Hyaline Casts 2 Urine Mucus Rare Opiates Screen Methadone Screen Barbiturate Screen Phencyclidine Screen Ur Amphetamines Screen MDMA (Ecstasy) Screen Benzodiazepines Screen Cocaine Screen U Marijuana (THC) Screen Blood Type B POSITIVE Antibody Screen Negative 11/01/17 11/01/17 13:00 14:20 WBC RBC Hgb Hct MCV MCH MCHC RDW Plt Count MPV Neutrophils % Lymphocytes % Monocytes % Eosinophils % Basophils % PT with INR INR Puncture Site Right radial ABG pH 7.43 ABG pCO2 at Pt Temp 36.6 ABG pO2 at Pt Temp 192.0 H* ABG HCO3 23.8 ABG O2 Sat (Measured) 99.7 H* ABG O2 Content 16.1 ABG Base Excess 0.2 Sulaiman Test Positive Carboxyhemoglobin 0.9 Methemoglobin 1.2 O2 Delivery Device Vent Oxygen Flow Rate 50% Vent Mode A/c Vent Rate 12 Mechanical Rate Yes PEEP 0.0 Pressure Support Vent 500 Sodium Potassium Chloride Carbon Dioxide Anion Gap BUN Creatinine Creat Clearance w eGFR Random Glucose Lactic Acid Calcium Magnesium Total Bilirubin AST ALT Alkaline Phosphatase Total Protein Albumin Urine Color Urine Appearance Urine pH Ur Specific Fleming Urine Protein Urine Glucose (UA) Urine Ketones Urine Blood Urine Nitrite Urine Bilirubin Urine Urobilinogen Ur Leukocyte Esterase Urine WBC (Auto) Urine RBC (Auto) Urine Bacteria Hyaline Casts Urine Mucus Opiates Screen Negative Methadone Screen Negative Barbiturate Screen Negative Phencyclidine Screen Negative Ur Amphetamines Screen Negative MDMA (Ecstasy) Screen Negative Benzodiazepines Screen Positive Cocaine Screen Negative U Marijuana (THC) Screen Positive Blood Type Antibody Screen Active Medications Generic Name Dose Route Start Last Admin Trade Name Freq PRN Reason Stop Dose Admin Propofol 1,000,000 mcg in 100 mls @ 1.973 mls/hr 11/01/17 12:45 11/01/17 13: 07 Diprivan - IVPB 11/02/17 12:44 50 mcg/kg/min TITR KOKO 19.731 mls/hr Protocol Titration 5 MCG/KG/MIN Phenytoin Sodium 1,000 mg/ 120 mls @ 120 mls/hr 11/01/17 16:00 Sodium Chloride IVPB 11/01/17 16:59 ONCE ONE Piperacillin Sod/Tazobactam 50 mls @ 100 mls/hr 11/01/17 16:15 Sod 3.375 gm/ Dextrose IVPB 11/01/17 16:44 ONCE ONE
[2017-11-01] MEDS ORDERED: PIPERACILLIN/TAZOB 3.375 GM 3.375 GM in DEXTROSE 5%-WATER - 50 ML IVPB ONE (16:15)
[2017-11-01] MEDS ORDERED: SODIUM CHLORIDE 1,000 ML IV ONE (17:23)
[2017-11-01] MEDS ORDERED: ACETAMINOPHEN 325 MG TABLET (FP) PO PRN (17:58)
[2017-11-02] MEDS ORDERED: PIPERACILLIN/TAZOB 3.375 GM 3.375 GM in DEXTROSE 5%-WATER - 100 ML IVPB SCH (02:00)
[2017-11-02] MEDS: PIPERACILLIN/TAZOB 3.375 GM 3.375 GM in DEXTROSE 5%-WATER - 50 ML IVPB SCH ×2 (02:58→12:00)
--- NOTE | 2017-11-02 09:04 | PN ---
Progress Note (short form) - Note Progress Note: Multiple seizures on Nov 02 , he was intubated in field. He was loaded with dilantin and keppra as he wa non complint with mediciton and. He has history of TBI, . Patient had ct scan done and was normal. He was etubated last night. NOw he feels exhausted but no seizures since yesterday According to he was non compliant with medication. He was suppose to be dialntin 100 mg po tid and keppra 500 or 1 gm po bid H Neurological Examination He is alert and follow command, speech is normal, oriented x 1 Pupils is reactive and face is symmetrical moving all extremity ( given he is intubated and sedated detail exam is not possible ct head unremarkable Assessment- ETOH withdrawal seizure and non compliant with Medication ( According to his ) and also history of TBI Plan- suggest to continue keppra 1 gm po bid and dilantin 100 mg po tid ( Orders were placed) 2. No need for mri , eeg can be done if remains in hospital 3. continue supportive treatment, watch for alcohol withdrawal symptoms. will continue to follow Thanking you so much Lucas Holguin MD
[2017-11-02] MEDS ORDERED: levETIRAcetam 500 MG TABLET (FP) PO SCH (10:00)
[2017-11-02] MEDS ORDERED: PHENYTOIN NA EXTENDED 100 MG CAPSULE (FP) PO SCH (14:00)
[2017-11-02 14:42] VITALS: BP 113/60; PULSE 91; TEMP 97.8
--- NOTE | 2017-11-02 17:32 | DS ---
Physical Examination Vital Signs: Vital Signs Temperature 97.8 F 11/02/17 14:25 Pulse Rate 91 H 11/02/17 14:25 Respiratory Rate 16 11/02/17 14:25 Blood Pressure 113/60 11/02/17 14:25 O2 Sat by Pulse Oximetry (%) 100 11/02/17 14:25 Labs: CBC, BMP 11/01/17 12:54 11/01/17 12:54 Discharge Summary Reason For Visit: SEIZURE DISORDER Condition: Fair - Instructions Disposition: AGAINST MEDICAL ADVICE - Home Medications Comprehensive Discharge Medication List: Ambulatory Orders Unobtainable [Unobtainable] 11/01/17 AMA
--- NOTE | 2017-11-04 12:28 | EKG ---
Test Reason : Blood Pressure : / mmHG Vent. Rate : 123 BPM Atrial Rate : 123 BPM P-R Int : 148 ms QRS Dur : 088 ms QT Int : 312 ms P-R-T Axes : 073 075 082 degrees QTc Int : 446 ms SINUS TACHYCARDIA POSSIBLE LEFT ATRIAL ENLARGEMENT BORDERLINE ECG WHEN COMPARED WITH ECG OF 08-JUN-2017 09:57, ST NO LONGER DEPRESSED IN INFERIOR LEADS Confirmed by ANA CHACKO MD ([id number]) on 11/04/2017 12:28:34 PM Referred By: Confirmed By:ANA CHACKO MD
== END 2017-11-02 14:26 | disposition left against medical advice (07) | DRG 133 ==
LOC: JER 12:31 → JERBED 15:35 → OBSVTOIN 16:22
PROVIDERS: ADMIT Internal Medicine; ATTEND Internal Medicine
PROC: 5A1935Z Respiratory Ventilation, Less than 24 Consecutive Hours (ICD-10-PCS; principal; 2017-11-01)
DX: J96.01 Acute respiratory failure with hypoxia (principal); G40.909 Epilepsy, unspecified, not intractable, without status epilepticus; Z87.820 Personal history of traumatic brain injury; F12.10 Cannabis abuse, uncomplicated; Z91.14 Patient's other noncompliance with medication regimen; F10.10 Alcohol abuse, uncomplicated; F10.230 Alcohol dependence with withdrawal, uncomplicated
CPT/HCPCS: 36415; 36600; 70450-TC; 71045-TC; 80053; 80307; 81003; 81015; 82375; 82803; 83050; 83605; 83735; 85025; 85610; 86850; 86900; 86901; 87040; 87086; 87804; 93005; 93010; 99285-25; G0378

== ENCOUNTER 2017-11-30 15:21 | Emergency (ER) | payer OTHER ==
[2017-11-30 15:56] VITALS: BP 129/77; PULSE 77; TEMP 98.1; BMI 23.3
--- NOTE | 2017-11-30 16:08 | PDOC ---
History of Present Illness - History of Present Illness Initial Comments: 11/30/17 16:49 Patient is a 37 M with PMHx of epilepsy, short-term memory loss s/p brain surgery, who presents with back pain s/p injury. Patient states that he was at physical therapy with his , went across the street to the [facility], and was pushing a cart up the hill when he fell backwards on his behind. He is complaining of lower back pain. He states that he didnt lose consciousness and he didnt experience any seizure-like activity. Denies loss of bowels or bladder. Denies loss of sensation. He also complains of chronic left shoulder pain. His states he also has b/l hip pain. He normally ambulates with a cane. Denies fever, chills, palpitations, chest pain, shortness of breath, loss of vision, headaches. Surgical Hx: brain surgery, knee surgery. Social Hx: Smokes Marijuana daily <Stephanie Field - Last Filed: 11/30/17 16:42> <Mya Colorado - Last Filed: 11/30/17 17:52> - General Chief Complaint: Injury Stated Complaint: FELL OVER A SIDEWALK Time Seen by Provider: 11/30/17 15:28 Past History <Stephanie Field - Last Filed: 11/30/17 16:42> - Past Medical History Cardiac Disorders: No CVA: No COPD: No Seizures: Yes - Immunization History Immunization Up to Date: Yes - Suicide/Smoking/Psychosocial Hx Smoking History: Unknown if ever smoked Have you smoked in the past 12 months: No Number of Cigarettes Smoked Daily: 5 Cigars Per Day: 0 Information on smoking cessation initiated: No Hx Alcohol Use: No Drug/Substance Use Hx: No Substance Use Type: None Hx Substance Use Treatment: No <Mya Colorado - Last Filed: 11/30/17 17:52> - Past Medical History Allergies/Adverse Reactions: Allergies Allergy/AdvReac Type Severity Reaction Status Date / Time No Known Allergies Allergy Verified 11/01/17 12:51 Home Medications: Ambulatory Orders Esomeprazole Magnesium [Nexium 24Hr] 20 mg PO DAILY 11/30/17 Ibuprofen [Motrin -] 600 mg PO TID PRN #15 tablet 11/30/17 levETIRAcetam [Keppra -] 1,000 mg PO BID 11/30/17 Review of Systems - Review of Systems Comments:: 11/30/17 16:45 GENERAL/CONSTITUTIONAL: No fever or chills. No weakness. HEAD, EYES, EARS, NOSE AND THROAT: No change in vision. No ear pain or discharge. No sore throat. GASTROINTESTINAL: No nausea, vomiting, diarrhea or constipation. GENITOURINARY: No dysuria, frequency, or change in urination. CARDIOVASCULAR: No chest pain or shortness of breath. RESPIRATORY: No cough, wheezing, or hemoptysis. MUSCULOSKELETAL: +back pain, b/l hip pain, left shoulder pain (chronic). No neck pain. No swelling. SKIN: No rash NEUROLOGIC: No headache, vertigo, loss of consciousness, or change in strength/ sensation. ENDOCRINE: No increased thirst. No abnormal weight change. HEMATOLOGIC/LYMPHATIC: No anemia, easy bleeding, or history of blood clots. ALLERGIC/IMMUNOLOGIC: No hives or skin allergy. <Stephanie Field - Last Filed: 11/30/17 16:42> *Physical Exam - Vital Signs Last Vital Signs Temp Pulse Resp BP Pulse Ox 98.1 F 77 20 129/77 99 11/30/17 15:21 11/30/17 15:21 11/30/17 15:21 11/30/17 15:21 11/30/17 15:21 - Physical Exam Comments: 11/30/17 16:42 GENERAL: Disheveled, strong odor. Awake, alert, and fully oriented, in no acute distress. HEAD: No signs of trauma EYES: PERRLA, EOMI, sclera anicteric, conjunctiva clear ENT: Auricles normal inspection, hearing grossly normal, nares patent, oropharynx clear without exudates. Moist mucosa NECK: Normal ROM, supple, no lymphadenopathy, JVD, or masses LUNGS: Breath sounds equal, clear to auscultation bilaterally. No wheezes, and no crackles HEART: Regular rate and rhythm, normal S1 and S2, no murmurs, rubs or gallops ABDOMEN: Soft, nontender, normoactive bowel sounds. No guarding, no rebound. No masses BACK: Tenderness paraspinally in thoracic area. No cervical tenderness. 5/5 muscle strength. FROM. Sensation intact in lower extremity. No cauda equina. Midline tenderness in paraspinal region of lumbar. Pedal pulses intact. No step -off. EXTREMITIES: Normal range of motion, no edema. No clubbing or cyanosis. No cords, erythema, or tenderness NEUROLOGICAL: Cranial nerves II through XII grossly intact. Normal speech, normal gait SKIN: Warm, Dry, normal turgor, no rashes or lesions noted. <Stephanie Field - Last Filed: 11/30/17 16:42> - Vital Signs Last Vital Signs Temp Pulse Resp BP Pulse Ox 98.1 F 77 20 129/77 99 11/30/17 15:21 11/30/17 15:21 11/30/17 15:21 11/30/17 15:21 11/30/17 15:21 <Mya Colorado - Last Filed: 11/30/17 17:52> Medical Decision Making - Medical Decision Making 11/30/17 16:28 a/p: 37yo male with mechanical fall when walking up onto a side walk when crossing the street -pt pushing a cart -supposed to be using a cane -no seizure activity -able to get up and walk afterwards -low back and thoracic pain -will obtain xrays and motrin for pain -neuro intact 11/30/17 17:51 no acute fractures seen on xrays discussed imaging results with the patient will give Rx for motrin pt has been ambulatory in the ED no seizure activity while in the ED pt states pain controlled will walk with his cane stable for dc to home. answered all quesitons. discussed IVC filter seen on imaging - pt states he will follow up with his PMD for further eval. <Mya Colorado - Last Filed: 11/30/17 17:52> *DC/Admit/Observation/Transfer - Attestations Scribe Attestion: 11/30/17 16:50 Documentation prepared by Stephanie Field, acting as biomedical photographer for Mya Colorado DO. <Stephanie Field - Last Filed: 11/30/17 16:42> - Discharge Dispostion Admit: No - Attestations Physician Attestion: 11/30/17 17:51 I, Dr. Mya Colorado DO, attest that this document has been prepared under my direction and personally reviewed by me in its entirety. I further attest, that it accurately reflects all work, treatment, procedures and medical decision -making performed by me. <Mya Colorado - Last Filed: 11/30/17 17:52> Diagnosis at time of Disposition: Fall, Low back pain - Discharge Dispostion Disposition: HOME Condition at time of disposition: Stable - Prescriptions Prescriptions: Ibuprofen [Motrin -] 600 mg PO TID PRN #15 tablet PRN Reason: Pain - Referrals Referrals: Pj Hurt MD [Staff Physician] - - Patient Instructions Printed Discharge Instructions: DI for Low Back Pain, How to Prevent Falls Additional Instructions: Please take all meds as prescribed. Please make an appointment to follow up with the orthopedist if the pain continues. Please follow up with your PMD in 2- 3 days for a re-eval. Please return to the ED with any further concerns.
[2017-11-30] MEDS ORDERED: IBUPROFEN 600 MG TABLET (FP) PO ONE ×2 (16:09→17:25)
[2017-11-30] MEDS ORDERED: ONDANSETRON *ODT* 4 MG TABLET SL ONE (17:14)
[2017-11-30] MEDS ORDERED: ONDANSETRON *ODT* 4 MG TABLET ONE (17:26)
== END 2017-11-30 18:26 | disposition home or self-care (01) ==
LOC: FER 15:21
DX: M54.5 Low back pain (principal); Z99.89 Dependence on other enabling machines and devices; G89.29 Other chronic pain; G40.909 Epilepsy, unspecified, not intractable, without status epilepticus; W18.39XA Other fall on same level, initial encounter; Y93.89 Activity, other specified; Y92.410 Unspecified street and highway as the place of occurrence of the external cause
CPT/HCPCS: 72070-TC-FY; 72100-TC-FY; 99281-25

== ENCOUNTER 2018-01-05 15:28 | Emergency (ER) | payer OTHER ==
[2018-01-05 15:43] VITALS: BP 109/67; PULSE 86; TEMP 98.1; BMI 20.2
[2018-01-05] MEDS ORDERED: IBUPROFEN 400 MG TABLET (FP) PO ONE ×2 (16:16→16:20)
--- NOTE | 2018-01-05 16:21 | PDOC ---
History of Present Illness - General Chief Complaint: Injury Stated Complaint: PAIN Time Seen by Provider: 01/05/18 15:59 History Source: Patient - History of Present Illness Occurred: reports: this afternoon Pain Location: reports: back, upper extremity Method of Injury: Yes: fall Past History - Past Medical History Allergies/Adverse Reactions: Allergies Allergy/AdvReac Type Severity Reaction Status Date / Time No Known Allergies Allergy Verified 11/01/17 12:51 Home Medications: Ambulatory Orders levETIRAcetam [Keppra -] 1,000 mg PO BID 11/30/17 Cardiac Disorders: No CVA: No COPD: No Seizures: Yes - Immunization History Immunization Up to Date: Yes - Suicide/Smoking/Psychosocial Hx Smoking History: Unknown if ever smoked Have you smoked in the past 12 months: No Number of Cigarettes Smoked Daily: 5 Cigars Per Day: 0 Information on smoking cessation initiated: No Hx Alcohol Use: No Drug/Substance Use Hx: Yes Substance Use Type: Marijuana Hx Substance Use Treatment: No Review of Systems - Review of Systems Musculoskeletal: Yes: Back Pain, Joint Pain. No: Joint Swelling, Neck Pain Neurological: No: Headache, Numbness, Weakness, Dizziness *Physical Exam - Vital Signs Last Vital Signs Temp Pulse Resp BP Pulse Ox 98.1 F 86 20 109/67 96 01/05/18 15:41 01/05/18 15:41 01/05/18 15:41 01/05/18 15:41 01/05/18 15:41 - Physical Exam General Appearance: Yes: Appropriately Dressed, Mild Distress HEENT: positive: Normal Voice Neck: positive: Supple. negative: Tender, Decreased range of motion Respiratory/Chest: negative: Respiratory Distress Gastrointestinal/Abdominal: positive: Soft. negative: Tender Musculoskeletal: positive: Vertebral Tenderness (to mid lower back) Integumentary: positive: Dry, Warm Neurologic: positive: Fully Oriented, Alert, Normal Mood/Affect ED Treatment Course - RADIOLOGY Radiology Studies Ordered: Category Date Time Status SHOULDER-LEFT [RAD] Stat Radiology 01/05/18 16:16 Ordered SPINE-LUMBAR SACRAL [RAD] Stat Radiology 01/05/18 16:16 Ordered Medical Decision Making - Medical Decision Making 01/05/18 16:17 37-year-old male, TBI, epilepsy, polysubstance abuse, s/p IVC filter, here with lower back pain, status post slip and fall on snow snow outside of [employer] this afternoon. Has history of recurrent left shoulder dislocation and states shoulder popped out again today, but was able to reduce it on his own. Has some mild ache to site. Did not strike head and no LOC, headache, dizziness, nausea or vomiting. Patient ambulatory with no lower extremity weakness, saddle anesthesia or bladder incontinence. Denies any other injuries at this time. Patient appears mildly uncomfortable with no evidence of serious injuries at this time. Pain control and x-rays pending 01/05/18 17:22 Xrays negative for fracture. Sling given for possible reduced shoulder dislocation prior to arrival. Ortho referral in 1 to 2 weeks. Over-the- counter pain control as needed *DC/Admit/Observation/Transfer Diagnosis at time of Disposition: Back sprain Shoulder sprain Qualifiers: Encounter type: initial encounter Shoulder sprain type: unspecified sprain Laterality: left Qualified Code(s): S43.402A - Unspecified sprain of left shoulder joint, initial encounter - Discharge Dispostion Disposition: HOME Condition at time of disposition: Improved - Referrals Referrals: Eve Gonzales [Primary Care Provider] - Cooper Sanford MD [Staff Physician] - - Patient Instructions Printed Discharge Instructions: Shoulder Sprain, DI for Back Strain or Sprain Additional Instructions: X-rays did not show any fracture. Use sling to left shoulder and see orthopedics in 1-2 weeks Take [id number] medications for pain as needed. - Post Discharge Activity
== END 2018-01-05 17:30 | disposition home or self-care (01) ==
LOC: JERFT 15:28
DX: M25.512 Pain in left shoulder (principal); S39.012A Strain of muscle, fascia and tendon of lower back, initial encounter; W00.0XXA Fall on same level due to ice and snow, initial encounter; Y93.89 Activity, other specified; Y92.481 Parking lot as the place of occurrence of the external cause
CPT/HCPCS: 72100-TC-FY; 73030-TC-LT-FY; 99281-25

== ENCOUNTER 2018-01-06 09:25 | Inpatient (IN) | payer OTHER ==
[2018-01-06 11:10] VITALS: BMI 20.7
[2018-01-06] MEDS ORDERED: hydrOXYzine PAMOATE 25 MG CAPSULE (FP) PO PRN (11:11)
[2018-01-06] MEDS ORDERED: MAGNESIUM CITRATE 300 ML BOTTLE PO PRN (11:11)
[2018-01-06] MEDS ORDERED: IBUPROFEN 400 MG TABLET (FP) PO PRN (11:11)
[2018-01-06] MEDS ORDERED: MENTHOL/PHENOL 1 EACH UD MM PRN (11:11)
[2018-01-06] MEDS ORDERED: guaiFENesin/D-METHORPHAN HB 10 ML UNIT-DOSE CUPS PO PRN (11:11)
[2018-01-06] MEDS ORDERED: chlordiazePOXIDE HCL 25 MG CAPSULE PO PRN (11:11)
[2018-01-06] MEDS ORDERED: MAG HYDROX/AL HYDROX/SIMETH 30 ML UNIT-DOSE CUP PO PRN (11:11)
[2018-01-06] MEDS ORDERED: LOPERAMIDE HCL 2 MG CAPSULE PO PRN (11:11)
[2018-01-06] MEDS ORDERED: MAGNESIUM HYDROX 2400MG/30ML ORAL SUSPENSION 30 ML CUP PO PRN (11:11)
[2018-01-06] MEDS ORDERED: P-EPHED 60MG/TRIPROLIDI 2.5MG TABLET PO PRN (11:11)
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
[2018-01-06 15:09] LABS: HEMATOCRIT 42.6 % (35.4-49); MCHC 32.9 g/dl (32.0-35.9); MEAN CELL VOLUME 85.2 fl (80-96); MEAN PLT VOLUME 8.9 fl (7.5-11.1); PLATELET COUNT 363 K/MM3 (134-434); RDW 13.7 % (11.9-15.9); WHITE BLOOD COUNT 6.5 K/mm3 (4.0-10.0)
[2018-01-06 15:17] LABS: ALBUMIN 4.2 g/dl (3.4-5.0); ANION GAP 14 (8-16); BLOOD UREA NITROGEN 14 mg/dL (7-18); CHLORIDE 101 mmol/L (98-107); CO2 24 mmol/L (21-32); GLUCOSE,RANDOM 78 mg/dL (74-106); POTASSIUM 4.3 mmol/L (3.5-5.1); SGOT/AST 19 U/L (15-37); SODIUM 139 mmol/L (136-145)
[2018-01-06 15:22] LABS: ALK PHOS 98 U/L (45-117); BILIRUBIN,TOTAL 0.2 mg/dL (0.2-1.0); CREATININE 0.6 mg/dL (0.7-1.3); SGPT/ALT 38 U/L (12-78); TOT PROT 7.3 g/dl (6.4-8.2)
--- NOTE | 2018-01-06 15:50 | EKG ---
Test Reason : Blood Pressure : / mmHG Vent. Rate : 083 BPM Atrial Rate : 083 BPM P-R Int : 126 ms QRS Dur : 092 ms QT Int : 382 ms P-R-T Axes : 057 074 062 degrees QTc Int : 448 ms NORMAL SINUS RHYTHM NORMAL ECG WHEN COMPARED WITH ECG OF 01-NOV-2017 14:10, NO SIGNIFICANT CHANGE WAS FOUND Confirmed by ANA CHACKO MD ([id number]) on 01/06/2018 3:50:05 PM Referred By: Confirmed By:ANA CHACKO MD
[2018-01-06] MEDS: chlordiazePOXIDE HCL 25 MG CAPSULE PO SCH ×2 (17:30→22:27)
[2018-01-06 18:35] LABS: URINE APPEARANCE CLEAR; URINE BILIRUBIN NEGATIVE (NEGATIVE); URINE BLOOD NEGATIVE (NEGATIVE); URINE COLOR YELLOW; URINE GLUCOSE (UA) NEGATIVE (NEGATIVE); URINE KETONE NEGATIVE (NEGATIVE); URINE LEUK ESTERASE NEGATIVE (NEGATIVE); URINE NITRITE NEGATIVE (NEGATIVE); URINE PROTEIN NEGATIVE (NEGATIVE); URINE UROBILINOGEN NEGATIVE mg/dL (0.2-1.0)
[2018-01-06] MEDS: ACETAMINOPHEN 325 MG TABLET (FP) PO PRN (21:21)
[2018-01-06] MEDS: THIAMINE HCL 100 MG TABLET (FP) PO SCH (22:27)
[2018-01-06] MEDS: levETIRAcetam 500 MG TABLET (FP) PO SCH (22:27)
[2018-01-06] MEDS: MELATONIN 5 MG TABLETS PO SCH (22:27)
[2018-01-07] MEDS: chlordiazePOXIDE HCL 25 MG CAPSULE PO SCH ×4 (05:17→22:02)
[2018-01-07] MEDS: PRENATAL VITAMINS W/ FOLIC ACID TABLET (FP) PO SCH (10:33)
[2018-01-07] MEDS: levETIRAcetam 500 MG TABLET (FP) PO SCH ×2 (10:33→22:02)
--- NOTE | 2018-01-07 11:47 | PN ---
[facility] CIWA - CIWA Score Nausea/Vomitin-No Nausea/No Vomiting Muscle Tremors: 4-Moderate,w/Arms Extend Anxiety: 4-Mod. Anxious/Guarded Agitation: 3 Paroxysmal Sweats: No Perspiration Orientation: 0-Oriented Tacttile Disturbances: 3-Moderate Itch/Numb/Burn (BODY ACHES) Auditory Disturbances: 0-None Visual Disturbances: 0-None Headache: 0-None Present CIWA-Ar Total Score: 14 S Progress Note (SOAP) Subjective: ANXIETY,SWEATS, BODY ACHES,INTERMITTENT SLEEP. Objective: 01/07/18 12:14 Vital Signs Temperature 97.3 F L 01/07/18 10:30 Pulse Rate 100 H 01/07/18 10:30 Respiratory Rate 19 01/07/18 10:30 Blood Pressure 101/72 01/07/18 10:30 O2 Sat by Pulse Oximetry (%) Laboratory Last Values WBC 6.5 K/mm3 (4.0-10.0) D 01/06/18 11:45 RBC 5.00 M/mm3 (4.00-5.60) 01/06/18 11:45 Hgb 14.0 GM/dL (11.7-16.9) D 01/06/18 11:45 Hct 42.6 % (35.4-49) 01/06/18 11:45 MCV 85.2 fl (80-96) 01/06/18 11:45 MCH 28.0 pg (25.7-33.7) 01/06/18 11:45 MCHC 32.9 g/dl (32.0-35.9) 01/06/18 11:45 RDW 13.7 % (11.9-15.9) 01/06/18 11:45 Plt Count 363 K/MM3 (134-434) 01/06/18 11:45 MPV 8.9 fl (7.5-11.1) D 01/06/18 11:45 Sodium 139 mmol/L (136-145) 01/06/18 11:45 Potassium 4.3 mmol/L (3.5-5.1) 01/06/18 11:45 Chloride 101 mmol/L (98-107) 01/06/18 11:45 Carbon Dioxide 24 mmol/L (21-32) 01/06/18 11:45 Anion Gap 14 (8-16) 01/06/18 11:45 BUN 14 mg/dL (7-18) 01/06/18 11:45 Creatinine 0.6 mg/dL (0.7-1.3) L D 01/06/18 11:45 Creat Clearance w eGFR > 60 (>60) 01/06/18 11:45 Random Glucose 78 mg/dL (74-106) D 01/06/18 11:45 Calcium 9.0 mg/dL (8.5-10.1) 01/06/18 11:45 Total Bilirubin 0.2 mg/dL (0.2-1.0) D 01/06/18 11:45 AST 19 U/L (15-37) 01/06/18 11:45 ALT 38 U/L (12-78) D 01/06/18 11:45 Alkaline Phosphatase 98 U/L (45-117) D 01/06/18 11:45 Total Protein 7.3 g/dl (6.4-8.2) 01/06/18 11:45 Albumin 4.2 g/dl (3.4-5.0) 01/06/18 11:45 Urine Color Yellow 01/06/18 17:00 Urine Appearance Clear 01/06/18 17:00 Urine pH 5.0 (5.0-8.0) 01/06/18 17:00 Ur Specific [place] 1.023 (1.001-1.035) 01/06/18 17:00 Urine Protein Negative (NEGATIVE) 01/06/18 17:00 Urine Glucose (UA) Negative (NEGATIVE) 01/06/18 17:00 Urine Ketones Negative (NEGATIVE) 01/06/18 17:00 Urine Blood Negative (NEGATIVE) 01/06/18 17:00 Urine Nitrite Negative (NEGATIVE) 01/06/18 17:00 Urine Bilirubin Negative (NEGATIVE) 01/06/18 17:00 Urine Urobilinogen Negative mg/dL (0.2-1.0) 01/06/18 17:00 Ur Leukocyte Esterase Negative (NEGATIVE) 01/06/18 17:00 RPR Titer Nonreactive (NONREACTIVE) 01/06/18 11:45 Hep C Ab Diagnostic 0.1 s/co ratio (0.0-0.9) 01/06/18 12:10 HIV 1&2 Antibody Screen Negative 01/06/18 11:45 HIV P24 Antigen Negative 01/06/18 11:45 Assessment: 01/07/18 12:15 WITHDRAWAL SX Plan: CONTINUE DETOX INCREASE PO FLUIDS
[2018-01-07] MEDS: ACETAMINOPHEN 325 MG TABLET (FP) PO PRN (12:15)
[2018-01-07] MEDS: THIAMINE HCL 100 MG TABLET (FP) PO SCH (22:02)
[2018-01-07] MEDS: MELATONIN 5 MG TABLETS PO SCH (22:02)
[2018-01-08] MEDS: chlordiazePOXIDE HCL 25 MG CAPSULE PO SCH ×2 (05:43→10:21)
[2018-01-08] MEDS: ACETAMINOPHEN 325 MG TABLET (FP) PO PRN ×2 (09:22→17:22)
[2018-01-08] MEDS: PRENATAL VITAMINS W/ FOLIC ACID TABLET (FP) PO SCH (10:21)
[2018-01-08] MEDS: levETIRAcetam 500 MG TABLET (FP) PO SCH ×2 (10:21→22:25)
[2018-01-08] MEDS: NAPROXEN 250 MG TABLET (FP) PO SCH ×2 (13:35→22:26)
--- NOTE | 2018-01-08 15:43 | PN ---
[facility] CIWA - CIWA Score Nausea/Vomitin-No Nausea/No Vomiting Muscle Tremors: 3 Anxiety: 4-Mod. Anxious/Guarded Agitation: 3 Paroxysmal Sweats: 2 Orientation: 2-Disoriented Date<2 days Tacttile Disturbances: 2-Mild Itch/Numbness/Burn Auditory Disturbances: 0-None Visual Disturbances: 0-None Headache: 0-None Present CIWA-Ar Total Score: 16 BHS Progress Note (SOAP) Subjective: Body Aches, Anxious, Sweating. Objective: PATIENT A & O X 2 (UNCERTAIN ABOUT CURRENT DAY / DATE). PATIENT OBSERVED AMBULATING ON UNIT. NO ACUTE DISTRESS. 01/08/18 15:41 Vital Signs Temperature 98.7 F 01/08/18 13:38 Pulse Rate 87 01/08/18 13:38 Respiratory Rate 18 01/08/18 13:38 Blood Pressure 123/80 01/08/18 13:38 O2 Sat by Pulse Oximetry (%) Laboratory Tests 01/06/18 01/06/18 01/06/18 11:45 11:45 11:45 WBC 6.5 D RBC 5.00 Hgb 14.0 D Hct 42.6 MCV 85.2 MCH 28.0 MCHC 32.9 RDW 13.7 Plt Count 363 MPV 8.9 D Sodium 139 Potassium 4.3 Chloride 101 Carbon Dioxide 24 Anion Gap 14 BUN 14 Creatinine 0.6 L D Creat Clearance w eGFR > 60 Random Glucose 78 D Calcium 9.0 Total Bilirubin 0.2 D AST 19 ALT 38 D Alkaline Phosphatase 98 D Total Protein 7.3 Albumin 4.2 Urine Color Urine Appearance Urine pH Ur Specific [place] Urine Protein Urine Glucose (UA) Urine Ketones Urine Blood Urine Nitrite Urine Bilirubin Urine Urobilinogen Ur Leukocyte Esterase RPR Titer Nonreactive Hep C Ab Diagnostic HIV 1&2 Antibody Screen HIV P24 Antigen 01/06/18 01/06/18 01/06/18 11:45 12:10 17:00 WBC RBC Hgb Hct MCV MCH MCHC RDW Plt Count MPV Sodium Potassium Chloride Carbon Dioxide Anion Gap BUN Creatinine Creat Clearance w eGFR Random Glucose Calcium Total Bilirubin AST ALT Alkaline Phosphatase Total Protein Albumin Urine Color Yellow Urine Appearance Clear Urine pH 5.0 Ur Specific [place] 1.023 Urine Protein Negative Urine Glucose (UA) Negative Urine Ketones Negative Urine Blood Negative Urine Nitrite Negative Urine Bilirubin Negative Urine Urobilinogen Negative Ur Leukocyte Esterase Negative RPR Titer Hep C Ab Diagnostic 0.1 HIV 1&2 Antibody Screen Negative HIV P24 Antigen Negative LABS NOTED. KEPPRA LEVEL PENDING. 01/08/18 15:43 Assessment: 01/08/18 15:42 WITHDRAWAL SYMPTOMS. Plan: CONTINUE DETOX.
[2018-01-08] MEDS: chlordiazePOXIDE 5 MG CAPSULE PO SCH ×2 (17:22→22:25)
[2018-01-08] MEDS: THIAMINE HCL 100 MG TABLET (FP) PO SCH (22:25)
[2018-01-08] MEDS: MELATONIN 5 MG TABLETS PO SCH (22:25)
[2018-01-09] MEDS: chlordiazePOXIDE 5 MG CAPSULE PO SCH ×2 (05:37→10:28)
[2018-01-09] MEDS: NAPROXEN 250 MG TABLET (FP) PO SCH ×2 (09:28→22:20)
[2018-01-09] MEDS: levETIRAcetam 500 MG TABLET (FP) PO SCH ×2 (10:28→22:20)
[2018-01-09] MEDS: PRENATAL VITAMINS W/ FOLIC ACID TABLET (FP) PO SCH (10:28)
--- NOTE | 2018-01-09 13:11 | PN ---
S Progress Note (SOAP) Subjective: Anxious, sweating, chronic left shoulder pain (stated he used to take vicodin at home, patient aware this medication not given at this facility), encouraged to take motrin prn Objective: 01/09/18 13:07 Last Vital Signs Temp Pulse Resp BP Pulse Ox 95.6 F L 90 20 114/71 01/09/18 09:21 01/09/18 09:21 01/09/18 09:21 01/09/18 09:21 Laboratory Tests 01/06/18 01/06/18 01/06/18 11:45 11:45 11:45 WBC 6.5 D RBC 5.00 Hgb 14.0 D Hct 42.6 MCV 85.2 MCH 28.0 MCHC 32.9 RDW 13.7 Plt Count 363 MPV 8.9 D Sodium 139 Potassium 4.3 Chloride 101 Carbon Dioxide 24 Anion Gap 14 BUN 14 Creatinine 0.6 L D Creat Clearance w eGFR > 60 Random Glucose 78 D Calcium 9.0 Total Bilirubin 0.2 D AST 19 ALT 38 D Alkaline Phosphatase 98 D Total Protein 7.3 Albumin 4.2 Urine Color Urine Appearance Urine pH Ur Specific [place] Urine Protein Urine Glucose (UA) Urine Ketones Urine Blood Urine Nitrite Urine Bilirubin Urine Urobilinogen Ur Leukocyte Esterase Levetiracetam 16.3 RPR Titer Hep C Ab Diagnostic HIV 1&2 Antibody Screen HIV P24 Antigen 01/06/18 01/06/18 01/06/18 11:45 11:45 12:10 WBC RBC Hgb Hct MCV MCH MCHC RDW Plt Count MPV Sodium Potassium Chloride Carbon Dioxide Anion Gap BUN Creatinine Creat Clearance w eGFR Random Glucose Calcium Total Bilirubin AST ALT Alkaline Phosphatase Total Protein Albumin Urine Color Urine Appearance Urine pH Ur Specific [place] Urine Protein Urine Glucose (UA) Urine Ketones Urine Blood Urine Nitrite Urine Bilirubin Urine Urobilinogen Ur Leukocyte Esterase Levetiracetam RPR Titer Nonreactive Hep C Ab Diagnostic 0.1 HIV 1&2 Antibody Screen Negative HIV P24 Antigen Negative 01/06/18 17:00 WBC RBC Hgb Hct MCV MCH MCHC RDW Plt Count MPV Sodium Potassium Chloride Carbon Dioxide Anion Gap BUN Creatinine Creat Clearance w eGFR Random Glucose Calcium Total Bilirubin AST ALT Alkaline Phosphatase Total Protein Albumin Urine Color Yellow Urine Appearance Clear Urine pH 5.0 Ur Specific [place] 1.023 Urine Protein Negative Urine Glucose (UA) Negative Urine Ketones Negative Urine Blood Negative Urine Nitrite Negative Urine Bilirubin Negative Urine Urobilinogen Negative Ur Leukocyte Esterase Negative Levetiracetam RPR Titer Hep C Ab Diagnostic HIV 1&2 Antibody Screen HIV P24 Antigen Labs noted Assessment: 01/09/18 13:10 Withdrawal symptoms Plan: Continue detox Encouraged PO water hydration
[2018-01-09] MEDS: chlordiazePOXIDE HCL 10 MG CAPSULE PO SCH ×2 (17:20→22:20)
[2018-01-09] MEDS: THIAMINE HCL 100 MG TABLET (FP) PO SCH (22:20)
[2018-01-09] MEDS: MELATONIN 5 MG TABLETS PO SCH (22:21)
[2018-01-10] MEDS: chlordiazePOXIDE HCL 10 MG CAPSULE PO SCH (05:43)
[2018-01-10 09:26] VITALS: BP 103/71; PULSE 90; TEMP 96.7
--- NOTE | 2018-01-10 19:52 | PN ---
S Progress Note (SOAP) Subjective: Patient denies any current detox symptoms and reports that he feels well overall. Objective: PATIENT A & O X 3, OBSERVED AMBULATING ON UNIT. NO ACUTE DISTRESS. 01/10/18 19:50 Vital Signs Temperature 96.7 F L 01/10/18 09:25 Pulse Rate 90 01/10/18 09:25 Respiratory Rate 20 01/10/18 09:25 Blood Pressure 103/71 01/10/18 09:25 O2 Sat by Pulse Oximetry (%) Laboratory Tests 01/06/18 01/06/18 01/06/18 11:45 11:45 11:45 WBC 6.5 D RBC 5.00 Hgb 14.0 D Hct 42.6 MCV 85.2 MCH 28.0 MCHC 32.9 RDW 13.7 Plt Count 363 MPV 8.9 D Sodium 139 Potassium 4.3 Chloride 101 Carbon Dioxide 24 Anion Gap 14 BUN 14 Creatinine 0.6 L D Creat Clearance w eGFR > 60 Random Glucose 78 D Calcium 9.0 Total Bilirubin 0.2 D AST 19 ALT 38 D Alkaline Phosphatase 98 D Total Protein 7.3 Albumin 4.2 Urine Color Urine Appearance Urine pH Ur Specific [place] Urine Protein Urine Glucose (UA) Urine Ketones Urine Blood Urine Nitrite Urine Bilirubin Urine Urobilinogen Ur Leukocyte Esterase Levetiracetam 16.3 RPR Titer Hep C Ab Diagnostic HIV 1&2 Antibody Screen HIV P24 Antigen 01/06/18 01/06/18 01/06/18 11:45 11:45 12:10 WBC RBC Hgb Hct MCV MCH MCHC RDW Plt Count MPV Sodium Potassium Chloride Carbon Dioxide Anion Gap BUN Creatinine Creat Clearance w eGFR Random Glucose Calcium Total Bilirubin AST ALT Alkaline Phosphatase Total Protein Albumin Urine Color Urine Appearance Urine pH Ur Specific [place] Urine Protein Urine Glucose (UA) Urine Ketones Urine Blood Urine Nitrite Urine Bilirubin Urine Urobilinogen Ur Leukocyte Esterase Levetiracetam RPR Titer Nonreactive Hep C Ab Diagnostic 0.1 HIV 1&2 Antibody Screen Negative HIV P24 Antigen Negative 01/06/18 17:00 WBC RBC Hgb Hct MCV MCH MCHC RDW Plt Count MPV Sodium Potassium Chloride Carbon Dioxide Anion Gap BUN Creatinine Creat Clearance w eGFR Random Glucose Calcium Total Bilirubin AST ALT Alkaline Phosphatase Total Protein Albumin Urine Color Yellow Urine Appearance Clear Urine pH 5.0 Ur Specific [place] 1.023 Urine Protein Negative Urine Glucose (UA) Negative Urine Ketones Negative Urine Blood Negative Urine Nitrite Negative Urine Bilirubin Negative Urine Urobilinogen Negative Ur Leukocyte Esterase Negative Levetiracetam RPR Titer Hep C Ab Diagnostic HIV 1&2 Antibody Screen HIV P24 Antigen LABS NOTED. Assessment: 01/10/18 19:51 COMPLETION OF DETOX REGIMEN. Plan: PATIENT SCHEDULED FOR DISCHARGE FROM DETOX TODAY.
--- NOTE | 2018-01-10 19:58 | DS ---
[facility] Detox Discharge Summary Admission Date: 01/06/18 Discharge Date: 01/10/18 - History Present History: Alcohol Dependence Additional Comments: PATIENT RETURNING HOME, DECLINES AFTERCARE REFERRAL. PATIENT ADVISED TO CONSIDER LOCAL 12-STEP / NA / AA OUTPATIENT SUPPORT GROUPS FOR AFTERCARE. PATIENT WAS DISCHARGED FROM DETOX UNIT IN STABLE MEDICAL CONDITION. Pertinent Past History: History of Traumatic brain Injury, History of Seizures (due to TBI), Nicotine Dependence, Head Injury, GERD, ADHD, Insomnia. - Physical Exam Results Vital Signs: Vital Signs Temperature 96.7 F L 01/10/18 09:25 Pulse Rate 90 01/10/18 09:25 Respiratory Rate 20 01/10/18 09:25 Blood Pressure 103/71 01/10/18 09:25 O2 Sat by Pulse Oximetry (%) Pertinent Admission Physical Exam Findings: WITHDRAWAL SYMPTOMS. Laboratory Tests 01/06/18 01/06/18 01/06/18 11:45 11:45 11:45 WBC 6.5 D RBC 5.00 Hgb 14.0 D Hct 42.6 MCV 85.2 MCH 28.0 MCHC 32.9 RDW 13.7 Plt Count 363 MPV 8.9 D Sodium 139 Potassium 4.3 Chloride 101 Carbon Dioxide 24 Anion Gap 14 BUN 14 Creatinine 0.6 L D Creat Clearance w eGFR > 60 Random Glucose 78 D Calcium 9.0 Total Bilirubin 0.2 D AST 19 ALT 38 D Alkaline Phosphatase 98 D Total Protein 7.3 Albumin 4.2 Urine Color Urine Appearance Urine pH Ur Specific [place] Urine Protein Urine Glucose (UA) Urine Ketones Urine Blood Urine Nitrite Urine Bilirubin Urine Urobilinogen Ur Leukocyte Esterase Levetiracetam 16.3 RPR Titer Hep C Ab Diagnostic HIV 1&2 Antibody Screen HIV P24 Antigen 01/06/18 01/06/18 01/06/18 11:45 11:45 12:10 WBC RBC Hgb Hct MCV MCH MCHC RDW Plt Count MPV Sodium Potassium Chloride Carbon Dioxide Anion Gap BUN Creatinine Creat Clearance w eGFR Random Glucose Calcium Total Bilirubin AST ALT Alkaline Phosphatase Total Protein Albumin Urine Color Urine Appearance Urine pH Ur Specific [place] Urine Protein Urine Glucose (UA) Urine Ketones Urine Blood Urine Nitrite Urine Bilirubin Urine Urobilinogen Ur Leukocyte Esterase Levetiracetam RPR Titer Nonreactive Hep C Ab Diagnostic 0.1 HIV 1&2 Antibody Screen Negative HIV P24 Antigen Negative 01/06/18 17:00 WBC RBC Hgb Hct MCV MCH MCHC RDW Plt Count MPV Sodium Potassium Chloride Carbon Dioxide Anion Gap BUN Creatinine Creat Clearance w eGFR Random Glucose Calcium Total Bilirubin AST ALT Alkaline Phosphatase Total Protein Albumin Urine Color Yellow Urine Appearance Clear Urine pH 5.0 Ur Specific [place] 1.023 Urine Protein Negative Urine Glucose (UA) Negative Urine Ketones Negative Urine Blood Negative Urine Nitrite Negative Urine Bilirubin Negative Urine Urobilinogen Negative Ur Leukocyte Esterase Negative Levetiracetam RPR Titer Hep C Ab Diagnostic HIV 1&2 Antibody Screen HIV P24 Antigen LABS NOTED. - Treatment Hospital Course: Detox Protocol Followed, Detoxed Safely, Responded well, Discharged Condition Good Patient has Accepted a Rehab Referral to: PT ADVISED TO [facility] LOCAL 12-STEP/ NA/AA SUPPORT GROUPS FOR AFTERCARE. - Medication Discharge Medications: Ambulatory Orders levETIRAcetam [Keppra -] 1,000 mg PO BID 11/30/17 - Diagnosis (1) Alcohol dependence with uncomplicated withdrawal Status: Acute (2) Nicotine dependence Status: Chronic Qualifiers: Nicotine product type: cigarettes Substance use status: uncomplicated Qualified Code(s): F17.210 - Nicotine dependence, cigarettes, uncomplicated (3) Head injury Status: Acute Qualifiers: Encounter type: subsequent encounter Qualified Code(s): S09.90XD - Unspecified injury of head, subsequent encounter (4) History of traumatic brain injury Status: Chronic (5) Polysubstance abuse Status: Chronic (6) Seizure disorder Status: Chronic (7) ADHD (attention deficit hyperactivity disorder) Status: Chronic Qualifiers: Attention deficit-hyperactivity disorder type: unspecified Qualified Code(s ): F90.9 - Attention-deficit hyperactivity disorder, unspecified type (8) GERD (gastroesophageal reflux disease) Status: Chronic Qualifiers: Esophagitis presence: esophagitis presence not specified Qualified Code(s) : K21.9 - Gastro-esophageal reflux disease without esophagitis (9) Insomnia Status: Acute Qualifiers: Insomnia type: unspecified Qualified Code(s): G47.00 - Insomnia, unspecified (10) Cannabis dependence Status: Acute - AMA Did Patient Leave Against Medical Advice: No
== END 2018-01-10 09:53 | disposition home or self-care (01) | DRG 774 ==
LOC: YASAS 09:25 → Y3N 12:08
PROVIDERS: ADMIT Internal Medicine; ATTEND Internal Medicine
PROC: HZ2ZZZZ Detoxification Services for Substance Abuse Treatment (ICD-10-PCS; principal; 2018-01-06)
DX: F10.230 Alcohol dependence with withdrawal, uncomplicated (principal); F12.20 Cannabis dependence, uncomplicated; F14.10 Cocaine abuse, uncomplicated; F17.210 Nicotine dependence, cigarettes, uncomplicated; F90.9 Attention-deficit hyperactivity disorder, unspecified type; G47.00 Insomnia, unspecified; G40.909 Epilepsy, unspecified, not intractable, without status epilepticus; R01.1 Cardiac murmur, unspecified; Z87.820 Personal history of traumatic brain injury; Z59.0 Homelessness
CPT/HCPCS: 36415; 80053; 81003; 85027; 86593; 87389; 93005; 93010

== ENCOUNTER 2018-11-05 02:11 | Inpatient (IN) | payer OTHER ==
[2018-11-05] MEDS ORDERED: MAGNESIUM SULF 50% (8.12 MEQ/2 ML-1 GM VIAL) IVPB ONE (02:21)
[2018-11-05] MEDS ORDERED: levETIRAcetam 500 MG/5 ML INJECTION VIAL IVPB ONE (02:21)
[2018-11-05] MEDS ORDERED: CALCIUM GLUCONATE 10% - 1,000 MG/10 ML VIAL IVPB ONE (02:32)
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
[2018-11-05 02:48] LABS: BASO % 0.5 % (0-2.0); EOS % 2.5 % (0-4.5); HEMATOCRIT 40.2 % (35.4-49); HEMOGLOBIN 13.3 GM/dL (11.7-16.9); LYMPH % 5.7 % (8-40); MCH 28.5 pg (25.7-33.7); MEAN CELL VOLUME 86.4 fl (80-96); MEAN PLT VOLUME 8.5 fl (7.5-11.1); MONO % 7.5 % (3.8-10.2); NEUT % 83.8 % (42.8-82.8); PLATELET COUNT 403 K/MM3 (134-434); RBC 4.65 M/mm3 (4.00-5.60); RDW 14.1 % (11.9-15.9); WHITE BLOOD COUNT 11.7 K/mm3 (4.0-10.0)
[2018-11-05] MEDS ORDERED: diazePAM ACUDIAL 5-7.5-10 MG 1 EACH KIT PR ONE (02:51)
[2018-11-05] MEDS ORDERED: diazePAM 2.5 MG PEDIATRIC RECTAL APP GEL RC ONE (02:51)
[2018-11-05 02:54] LABS: INR 0.88 (0.83-1.09); PROTHROMBIN TIME (PATIENT) 10.4 SEC (9.7-13.0)
[2018-11-05 03:15] LABS: URINE APPEARANCE CLOUDY; URINE BILIRUBIN NEGATIVE (<2.0 mg/dL); URINE COLOR YELLOW; URINE GLUCOSE (UA) NEGATIVE (NEGATIVE); URINE KETONE NEGATIVE (NEGATIVE); URINE LEUK ESTERASE NEGATIVE (NEGATIVE); URINE NITRITE NEGATIVE (NEGATIVE); URINE PROTEIN 2+ (NEGATIVE)
[2018-11-05] MEDS ORDERED: ETOMIDATE 40 MG/20 ML VIAL IVPUSH ONE (03:17)
[2018-11-05] MEDS ORDERED: ROCURONIUM BROMIDE 50 MG/5 ML VIAL IVPUSH ONE (03:17)
[2018-11-05 03:18] LABS: ALK PHOS 106 U/L (45-117); ANION GAP 11 MMOL/L (8-16); BILIRUBIN,TOTAL 0.3 mg/dL (0.2-1); BLOOD UREA NITROGEN 22 mg/dL (7-18); CALCIUM 8.9 mg/dL (8.5-10.1); CHLORIDE 102 mmol/L (98-107); CO2 24 mmol/L (21-32); CREATININE 1.2 mg/dL (0.55-1.3); GLUCOSE,RANDOM 136 mg/dL (74-106); POTASSIUM 4.4 mmol/L (3.5-5.1); SGOT/AST 20 U/L (15-37); SGPT/ALT 23 U/L (13-61); SODIUM 137 mmol/L (136-145); TOT PROT 7.4 g/dl (6.4-8.2)
[2018-11-05 03:28] LABS: EPI CELLS RARE /HPF (FEW); URINE MUCUS RARE; YEAST FEW
--- NOTE | 2018-11-05 03:46 | CONSULT ---
Consultation: REQUESTING PROVIDER: CONSULT REQUEST: We have been asked to medically evaluate this patient for ( Status Epilepticus ). HISTORY OF PRESENT ILLNESS: 38 yo M with h./o polysusbtance abuse, chronic Etoh dependence, TBI, seizure disorder BIBA with convulsions. Per EMS patient given 5 mg Versed IM, and 5 mg Versed IV R sided EJ for left sided tonic clonic convulsions noted on arrival. noted to be tachycardic ~130's, with Glucose 137. Patient spouse at bedside states that patient typically compliant with Keppra 1000 mg BID, but missed his dosing yesterday ( 11/04/18). Patient took Keppra twice today. Patient unable to provide history. Patient spouse states that patient developed left sided convulsions while sitting in chair at rest today. In normal state of health prior to convulsions. recent congestion non compliance with his medication Last drink yesterday with his friends Joaquin , live with his first seizure he was sitting , turn his head and start seizing upper body mainly and shaking recent of his body denies any fall, head trauma , denies bite his tongue or inuresis , or incopresis , but reports some loose stool last couple days REVIEW OF SYSTEMS: CONSTITUTIONAL: Absent: fever, chills, diaphoresis, generalized weakness, malaise, loss of appetite, weight change HEENT: Absent: rhinorrhea, nasal congestion, throat pain, throat swelling, difficulty swallowing, mouth swelling, ear pain, eye pain, visual changes CARDIOVASCULAR: Absent: chest pain, syncope, palpitations, irregular heart rate, lightheadedness , peripheral edema RESPIRATORY: Absent: cough,sneezing shortness of breath, dyspnea with exertion, orthopnea, wheezing, stridor, hemoptysis GASTROINTESTINAL: Absent: abdominal pain, abdominal distension, nausea, vomiting, diarrhea, constipation, melena, hematochezia GENITOURINARY: Absent: dysuria, frequency, urgency, hesitancy, hematuria, flank pain, genital pain MUSCULOSKELETAL: Absent: myalgia, arthralgia, joint swelling, back pain, neck pain SKIN: Absent: rash, itching, pallor HEMATOLOGIC/IMMUNOLOGIC: Absent: easy bleeding, easy bruising, lymphadenopathy, frequent infections ENDOCRINE: Absent: unexplained weight gain, unexplained weight loss, heat intolerance, cold intolerance NEUROLOGIC: Absent: headache, focal weakness or paresthesias, dizziness, unsteady gait, seizure, mental status changes, bladder or bowel incontinence PSYCHIATRIC: Absent: anxiety, depression, suicidal or homicidal ideation, hallucinations. PHYSICAL EXAMINATION Vital Signs - 24 hr 11/05/18 11/05/18 11/05/18 02:13 02:48 03:34 Temperature 99.1 F Pulse Rate 131 H 120 H Respiratory 14 25 H Rate Blood Pressure 151/92 O2 Sat by Pulse 92 L 97 Oximetry (%) GENERAL: intubated sedated HEAD: NC/AT EYES: LUCI ENT: dry mucous membranes. NECK:supple LUNGS: Breath sounds equal, clear to auscultation bilaterally. No wheezes, and no crackles. No accessory muscle use. HEART: sinus tachy , normal S1 and S2 without murmur, rub or gallop. ABDOMEN: Soft, nontender, not distended, normoactive bowel sounds, no guarding, LOWER EXTREMITIES: 2+ pulses, warm, well-perfused. No calf tenderness. No peripheral edema. NEUROLOGICAL: intubated sedated Laboratory Results - last 24 hr 11/05/18 11/05/18 11/05/18 02:26 02:30 02:30 WBC 11.7 H RBC 4.65 Hgb 13.3 Hct 40.2 MCV 86.4 MCH 28.5 MCHC 33.0 RDW 14.1 Plt Count 403 MPV 8.5 Absolute Neuts (auto) 9.8 H Neutrophils % 83.8 H Lymphocytes % 5.7 L D Monocytes % 7.5 Eosinophils % 2.5 D Basophils % 0.5 Nucleated RBC % 0 PT with INR 10.40 INR 0.88 Sodium Potassium Chloride Carbon Dioxide Anion Gap BUN Creatinine Creat Clearance w eGFR Random Glucose Lactic Acid 7.7 H* Calcium Total Bilirubin AST ALT Alkaline Phosphatase Creatine Kinase Creatine Kinase Index CK-MB (CK-2) Troponin I Total Protein Albumin Urine Color Urine Appearance Urine pH Ur Specific [place] Urine Protein Urine Glucose (UA) Urine Ketones Urine Blood Urine Nitrite Urine Bilirubin Urine Urobilinogen Ur Leukocyte Esterase Urine WBC (Auto) Urine RBC (Auto) Ur Epithelial Cells Urine Mucus Urine Yeast Alcohol, Quantitative 11/05/18 11/05/18 11/05/18 02:30 02:30 02:30 WBC RBC Hgb Hct MCV MCH MCHC RDW Plt Count MPV Absolute Neuts (auto) Neutrophils % Lymphocytes % Monocytes % Eosinophils % Basophils % Nucleated RBC % PT with INR INR Sodium Cancelled 137 Potassium Cancelled 4.4 Chloride Cancelled 102 Carbon Dioxide Cancelled 24 Anion Gap Cancelled 11 BUN Cancelled 22 H Creatinine Cancelled 1.2 Creat Clearance w eGFR Cancelled > 60 Random Glucose Cancelled 136 H Lactic Acid Calcium Cancelled 8.9 Total Bilirubin Cancelled 0.3 AST Cancelled 20 ALT Cancelled 23 Alkaline Phosphatase Cancelled 106 Creatine Kinase 160 Creatine Kinase Index 1.2 CK-MB (CK-2) 2.0 Troponin I < 0.02 Total Protein Cancelled 7.4 Albumin Cancelled 4.0 Urine Color Urine Appearance Urine pH Ur Specific [place] Urine Protein Urine Glucose (UA) Urine Ketones Urine Blood Urine Nitrite Urine Bilirubin Urine Urobilinogen Ur Leukocyte Esterase Urine WBC (Auto) Urine RBC (Auto) Ur Epithelial Cells Urine Mucus Urine Yeast Alcohol, Quantitative < 3.0 Cancelled 11/05/18 03:03 WBC RBC Hgb Hct MCV MCH MCHC RDW Plt Count MPV Absolute Neuts (auto) Neutrophils % Lymphocytes % Monocytes % Eosinophils % Basophils % Nucleated RBC % PT with INR INR Sodium Potassium Chloride Carbon Dioxide Anion Gap BUN Creatinine Creat Clearance w eGFR Random Glucose Lactic Acid Calcium Total Bilirubin AST ALT Alkaline Phosphatase Creatine Kinase Creatine Kinase Index CK-MB (CK-2) Troponin I Total Protein Albumin Urine Color Yellow Urine Appearance Cloudy Urine pH 5.0 Ur Specific [place] 1.023 Urine Protein 2+ H Urine Glucose (UA) Negative Urine Ketones Negative Urine Blood 1+ H Urine Nitrite Negative Urine Bilirubin Negative Urine Urobilinogen 2.0 Ur Leukocyte Esterase Negative Urine WBC (Auto) 12 Urine RBC (Auto) 7 Ur Epithelial Cells Rare Urine Mucus Rare Urine Yeast Few Alcohol, Quantitative Active Medications Generic Name Dose Route Start Last Admin Trade Name Freq PRN Reason Stop Dose Admin Propofol 1,000,000 mcg in 100 mls @ 25.855 mls/hr 11/05/18 03:30 Diprivan - IVPB TITR KOKO Protocol 50 MCG/KG/MIN CBC, BMP 11/05/18 02:30 ASSESSMENT/PLAN: # Status Epilepticus likely due to non compliance vs infection vs unknown etiology vs alcohol abuse VS Recent URI # ETOH Abuse #Acute Hypoxic Respiratory Failure #Lactic Acidosis, #Acute Kidney Injury #Traumatic Brain Injury #h/o Polysubstance Abuse * intubated sedated * Neuro consult * Neuro check * suggest or load with keppra 1500 mg and continue 1500 mg iv bid * Load with Dilantin 1 gm * NPO * Aspiration precautions * [place] cx , RSV , Influenza A, B * Urine tox * Abx * Monitor CPK , * Trop * EKG * EEG and CT head when stable * Thiamin, folic acid * multiple vitamins * Cont Keppra * Propofol drip * Ativan PRN for seizure activity * IV fluids bolus and maintenance * Repeat LA , CBC, CMP * DVT proph * monitor Urine out put and cr * Encourage compliance * Dispo: We will continue to follow the patient. Thank you for this consultative opportunity. Visit type - Emergency Visit Emergency Visit: Yes ED Registration Date: 11/05/18 Care time: The patient presented to the Emergency Department on the above date and was hospitalized for further evaluation of their emergent condition. - New Patient This patient is new to me today: Yes Date on this admission: 11/05/18 - Critical Care Critical Care patient: Yes Total Critical Care Time (in minutes): 45 Critical Care Statement: The care of this patient involved high complexity decision making to prevent further life threatening deterioration of the patient 's condition and/or to evaluate & treat vital organ system(s) failure or risk of failure.
[2018-11-05] MEDS: PROPOFOL 1,000,000 MCG/100 ML VIAL IVPB SCH ×2 (04:12→21:06)
--- NOTE | 2018-11-05 05:17 | HP ---
CHIEF COMPLAINT: seizure PCP: none HISTORY OF PRESENT ILLNESS: 38 year old male with a history of alcohol and polysubstance abuse and seizure disorder with poor medication compliance was brought in by EMS for seizures. Per patient's and emergency department report, patient takes 1000 Keppra at home BID, but skipped his dose yesterday. Today, he drank 1 pint of vodka and smoked marijuana, but did take two doses of keppra. Per , the patient's prior seizure was several months ago, and during this episode, he was sitting in a chair. Further history was not able to be taken from either or patient. In the field, EMS administered 5mg midazolam intramuscularly followed by 5mg midazolam IV, which did not jessica the convulsions. In the ED, patient received Keppra 1000, ativan 2mg twice, and rectal diazepam. Patient was noted to be desaturating on non-rebreather mask at 15L and continuing to seize - he was then intubated in the ED and sedated with propofol with vent settings Vent 450 TV, RR 18, FIO2 40 %, PEEP 0. PAST MEDICAL HISTORY: polysubstance, alcohol abuse and seizure disorder PAST SURGICAL HISTORY: unknown Social History: Smoking: unknown if cigarettes, (+) marijuana Alcohol: current drinker, last drank today (1 pint vodka) Drugs: (+) polysubstance abuse, unable to get Family History: unknown Allergies No Known Allergies Allergy (Verified 11/05/18 02:12) HOME MEDICATIONS: Home Medications Medication Instructions Recorded levETIRAcetam [Keppra -] 1,000 mg PO BID 11/30/17 REVIEW OF SYSTEMS Unable to assess due to mental status PHYSICAL EXAMINATION Vital Signs - 24 hr 11/05/18 11/05/18 11/05/18 02:13 02:35 02:48 Temperature 99.2 F 99.1 F Pulse Rate 131 H Pulse Rate [ 135 H 112 H Apical] Pulse Rate [ Left Upper Arm] Respiratory 22 H 24 H Rate Respiratory Rate [Left Upper Arm] Blood Pressure 151/92 Blood Pressure 164/96 152/80 [Left Arm] Blood Pressure [Left Upper Arm ] O2 Sat by Pulse 98 98 Oximetry (%) O2 Sat by Pulse Oximetry (%) [ Left Upper Arm] 11/05/18 11/05/18 11/05/18 03:34 03:36 04:08 Temperature Pulse Rate 120 H Pulse Rate [ 124 H Apical] Pulse Rate [ Left Upper Arm] Respiratory 25 H 24 H 26 H Rate Respiratory Rate [Left Upper Arm] Blood Pressure Blood Pressure 108/53 L [Left Arm] Blood Pressure [Left Upper Arm ] O2 Sat by Pulse 97 98 Oximetry (%) O2 Sat by Pulse Oximetry (%) [ Left Upper Arm] 11/05/18 11/05/18 04:30 04:56 Temperature Pulse Rate Pulse Rate [ Apical] Pulse Rate [ 133 H Left Upper Arm] Respiratory Rate Respiratory 24 H Rate [Left Upper Arm] Blood Pressure Blood Pressure [Left Arm] Blood Pressure 126/82 [Left Upper Arm ] O2 Sat by Pulse 99 Oximetry (%) O2 Sat by Pulse 98 Oximetry (%) [ Left Upper Arm] GENERAL: A&Ox0, intubated, sedated, few and sparse active convulsions noted EYES: Pupils sluggish, equally round ENT: Dry mucus membranes NECK: No JVD LUNGS: Mechanical breath sounds HEART: Tachycardia and regular, no murmurs appreciated ABDOMEN: Soft, nontender, BS present EXTREMITIES: 2+ pulses, no edema. NEUROLOGICAL: Unable to assess due to sedated status, patient convulsing on exam Laboratory Results - last 24 hr 11/05/18 11/05/18 11/05/18 02:26 02:30 02:30 WBC 11.7 H RBC 4.65 Hgb 13.3 Hct 40.2 MCV 86.4 MCH 28.5 MCHC 33.0 RDW 14.1 Plt Count 403 MPV 8.5 Absolute Neuts (auto) 9.8 H Neutrophils % 83.8 H Lymphocytes % 5.7 L D Monocytes % 7.5 Eosinophils % 2.5 D Basophils % 0.5 Nucleated RBC % 0 PT with INR 10.40 INR 0.88 Sodium Potassium Chloride Carbon Dioxide Anion Gap BUN Creatinine Creat Clearance w eGFR Random Glucose Lactic Acid 7.7 H* Calcium Total Bilirubin AST ALT Alkaline Phosphatase Creatine Kinase Creatine Kinase Index CK-MB (CK-2) Troponin I Total Protein Albumin Urine Color Urine Appearance Urine pH Ur Specific [place] Urine Protein Urine Glucose (UA) Urine Ketones Urine Blood Urine Nitrite Urine Bilirubin Urine Urobilinogen Ur Leukocyte Esterase Urine WBC (Auto) Urine RBC (Auto) Ur Epithelial Cells Urine Mucus Urine Yeast Alcohol, Quantitative 11/05/18 11/05/18 11/05/18 02:30 02:30 02:30 WBC RBC Hgb Hct MCV MCH MCHC RDW Plt Count MPV Absolute Neuts (auto) Neutrophils % Lymphocytes % Monocytes % Eosinophils % Basophils % Nucleated RBC % PT with INR INR Sodium Cancelled 137 Potassium Cancelled 4.4 Chloride Cancelled 102 Carbon Dioxide Cancelled 24 Anion Gap Cancelled 11 BUN Cancelled 22 H Creatinine Cancelled 1.2 Creat Clearance w eGFR Cancelled > 60 Random Glucose Cancelled 136 H Lactic Acid Calcium Cancelled 8.9 Total Bilirubin Cancelled 0.3 AST Cancelled 20 ALT Cancelled 23 Alkaline Phosphatase Cancelled 106 Creatine Kinase 160 Creatine Kinase Index 1.2 CK-MB (CK-2) 2.0 Troponin I < 0.02 Total Protein Cancelled 7.4 Albumin Cancelled 4.0 Urine Color Urine Appearance Urine pH Ur Specific [place] Urine Protein Urine Glucose (UA) Urine Ketones Urine Blood Urine Nitrite Urine Bilirubin Urine Urobilinogen Ur Leukocyte Esterase Urine WBC (Auto) Urine RBC (Auto) Ur Epithelial Cells Urine Mucus Urine Yeast Alcohol, Quantitative < 3.0 Cancelled 11/05/18 03:03 WBC RBC Hgb Hct MCV MCH MCHC RDW Plt Count MPV Absolute Neuts (auto) Neutrophils % Lymphocytes % Monocytes % Eosinophils % Basophils % Nucleated RBC % PT with INR INR Sodium Potassium Chloride Carbon Dioxide Anion Gap BUN Creatinine Creat Clearance w eGFR Random Glucose Lactic Acid Calcium Total Bilirubin AST ALT Alkaline Phosphatase Creatine Kinase Creatine Kinase Index CK-MB (CK-2) Troponin I Total Protein Albumin Urine Color Yellow Urine Appearance Cloudy Urine pH 5.0 Ur Specific [place] 1.023 Urine Protein 2+ H Urine Glucose (UA) Negative Urine Ketones Negative Urine Blood 1+ H Urine Nitrite Negative Urine Bilirubin Negative Urine Urobilinogen 2.0 Ur Leukocyte Esterase Negative Urine WBC (Auto) 12 Urine RBC (Auto) 7 Ur Epithelial Cells Rare Urine Mucus Rare Urine Yeast Few Alcohol, Quantitative ASSESSMENT/PLAN: 38 year old male with a history of alcohol and polysubstance abuse and seizure disorder with poor medication compliance was brought in by EMS for seizures. #Status Epilepticus: secondary to medication non-compliance vs. alcohol abuse vs. other polysubstance abuse -LR @ 125cc/hr, murphy in place -keppra 1500 IV BID -fosphenytoin 1000mg ordered -ativan 2mg IV Q4h -on propofol sedation -ICU level of care -neurology consultation - call placed and discussed w/ Dr. Harris -emigdio tox ordered -EEG #Lactic Acidosis: likely 2/2 seizure activity, value was 7.7 -repeat lactic acid at 8am -continue fluid hydration #FEN -LR @ 125cc/hr -lytes normal -NPO while intubated #Prophylaxis -lovenox #Disposition -admit ICU Visit type - Emergency Visit Emergency Visit: Yes Care time: The patient presented to the Emergency Department on the above date and was hospitalized for further evaluation of their emergent condition. - New Patient This patient is new to me today: Yes Date on this admission: 11/05/18 - Critical Care Critical Care patient: Yes Total Critical Care Time (in minutes): 41 Critical Care Statement: The care of this patient involved high complexity decision making to prevent further life threatening deterioration of the patient 's condition and/or to evaluate & treat vital organ system(s) failure or risk of failure.
[2018-11-05 05:26] LABS: ARTERIAL BLD GAS O2 SATURATION 99.8 % (90-98.9); ARTERIAL BLOOD GAS BASE EXCESS -0.2 meq/l (-2-2); ARTERIAL BLOOD GAS PCO2 41.3 mmHg (35-45); ARTERIAL BLOOD GAS pH 7.39 (7.35-7.45)
[2018-11-05 05:29] LABS: ALLENS TEST POSITIVE
--- NOTE | 2018-11-05 05:29 | PN ---
Teaching Attending Note Name of Resident: Sanjay Santana ATTENDING PHYSICIAN STATEMENT I saw and evaluated the patient. I reviewed the resident's note and discussed the case with the resident. I agree with the resident's findings and plan as documented. SUBJECTIVE: OBJECTIVE: ASSESSMENT AND PLAN: 38 y/o male with hx of seizure disorder, Poly-substance abuse (alcohol and marijuana) presented to the hospital by EMS after the patient noticed his hand were moving, he felt he is having a seizure, when the patient arrived he was having jerking movement of the hands for which he received midazolam IM - he got intubated in the ER for airway protection and admitted for status epilepticus plan: status epilepticus - alcohol vs marijuana vs poor compliance - admit the patient to the ICU - start patient on propafol drip - neurology consultation - keppra 1g - restart the keppra IV - consider fosphenytoin if the patient is still seizing - consider starting the midazolam drip - IVP diazepam lactic acidosis - 2/2 seizure - IVF hydration - repeat lactate level x3 hrs until negative Acute respiratory failure - patient s/p intubation - c/w vent management - MICU consult
[2018-11-05] MEDS ORDERED: LORazepam 2 MG/ML SDV VIAL ONE (05:36)
[2018-11-05] MEDS ORDERED: MIDAZOLAM 100 MG/100 ML MG IVPB ONE (05:38)
[2018-11-05] MEDS ORDERED: PHENYTOIN SODIUM 100 MG/2 ML VIAL IVPB ONE (05:43)
[2018-11-05] MEDS ORDERED: MIDAZOLAM 100 MG in SODIUM CHLORIDE 100 ML IVPB SCH (05:45)
[2018-11-05] MEDS ORDERED: FOSPHENYTOIN SODIUM 1,000 MG in SODIUM CHLORIDE 100 ML IVPB ONE (05:49)
[2018-11-05] MEDS: LORazepam 2 MG/ML SDV VIAL IVPUSH PRN ×2 (05:52→21:17)
[2018-11-05] MEDS: LACTATED RINGERS SOLUTION 1,000 ML/1,000 ML INFUS.BAG IV SCH (05:54)
[2018-11-05] MEDS ORDERED: PHENYTOIN SODIUM 100 MG/2 ML VIAL IVPB SCH ×3 (06:00→14:00)
[2018-11-05] MEDS ORDERED: chlordiazePOXIDE HCL 25 MG CAPSULE PO PRN (07:15)
[2018-11-05 08:36] LABS: URINE APPEARANCE TURBID; URINE BILIRUBIN NEGATIVE (<2.0 mg/dL); URINE COLOR LTYELLOW; URINE GLUCOSE (UA) NEGATIVE (NEGATIVE); URINE KETONE 1+ (NEGATIVE); URINE LEUK ESTERASE NEGATIVE (NEGATIVE); URINE NITRITE NEGATIVE (NEGATIVE); URINE PROTEIN NEGATIVE (NEGATIVE); URINE UROBILINOGEN NEGATIVE mg/dL (0.2-1.0)
[2018-11-05 08:48] LABS: METHADONE, UR NEGATIVE ng/ml (CUTOFF=300); OPIATES, URI NEGATIVE ng/ml (CUTOFF=300); PHENCYCLIDINE,URINE NEGATIVE ng/ml (CUTOFF=25); URINE AMPHETAMINES NEGATIVE ng/ml (CUTOFF=500); URINE BARBITURATES NEGATIVE ng/ml (CUTOFF=200)
[2018-11-05 09:00] LABS: ALBUMIN 3.1 g/dl (3.4-5.0); ALK PHOS 77 U/L (45-117); ANION GAP 11 MMOL/L (8-16); BILIRUBIN,TOTAL 0.5 mg/dL (0.2-1); BLOOD UREA NITROGEN 19 mg/dL (7-18); CALCIUM 7.6 mg/dL (8.5-10.1); CHLORIDE 109 mmol/L (98-107); CO2 24 mmol/L (21-32); CREATININE 0.9 mg/dL (0.55-1.3); GLUCOSE,RANDOM 84 mg/dL (74-106); MAGNESIUM 1.9 mg/dL (1.8-2.4); PHOSPHOROUS 2.8 mg/dL (2.5-4.9); POTASSIUM 3.7 mmol/L (3.5-5.1); SGOT/AST 18 U/L (15-37); SGPT/ALT 19 U/L (13-61); SODIUM 143 mmol/L (136-145); TOT PROT 5.7 g/dl (6.4-8.2)
[2018-11-05 09:28] LABS: COCAINE, UR POSITIVE ng/ml (CUTOFF=300); URINE BENZODIAZEPINES POSITIVE ng/ml (CUTOFF=200)
[2018-11-05] MEDS: MUPIROCIN 2% TOPICAL OINTMENT FOR DECOLONIZATION NS SCH ×2 (09:39→21:06)
[2018-11-05] MEDS: levETIRAcetam 500 MG/5 ML INJECTION VIAL IVPB SCH ×2 (09:40→21:06)
[2018-11-05] MEDS: ENOXAPARIN NA (PORCINE) 40 MG/0.4 ML DISP.SYRIN SQ SCH (09:41)
[2018-11-05 10:40] LABS: BASO % 0.7 % (0-2.0); EOS % 0.7 % (0-4.5); HEMATOCRIT 35.9 % (35.4-49); LYMPH % 15.2 % (8-40); MCH 28.7 pg (25.7-33.7); MCHC 33.4 g/dl (32.0-35.9); MEAN CELL VOLUME 85.9 fl (80-96); MEAN PLT VOLUME 7.9 fl (7.5-11.1); MONO % 10.2 % (3.8-10.2); NEUT % 73.2 % (42.8-82.8); PLATELET COUNT 302 K/MM3 (134-434); RBC 4.19 M/mm3 (4.00-5.60); RDW 14.1 % (11.9-15.9)
--- NOTE | 2018-11-05 12:00 | PN ---
Teaching Attending Note Name of Resident: Real Henson ATTENDING PHYSICIAN STATEMENT I saw and evaluated the patient. I reviewed the resident's note and discussed the case with the resident. I agree with the resident's findings and plan as documented. SUBJECTIVE: Pt seen and examined in the ICU. Remains intubated, sedated. Vented on volume assist control with 80% FiO2. No further seizures noted. OBJECTIVE: Vital Signs Period Temp Pulse Resp BP Sys/Kay Pulse Ox Last 24 Hr 99.1 F-99.2 F 99-135 14-26 108-164/53-96 92-100 Intake & Output 11/02/18 11/03/18 11/04/18 11/05/18 23:59 23:59 23:59 23:59 Intake Total 260 Output Total 220 Balance 40 Weight 65.589 kg Gen: intubated, sedated Heart: RRR Lung: decreased breath sounds at the bases Abd: soft, nontender Ext: no edema CBC, BMP 11/05/18 10:30 11/05/18 08:00 Active Medications Chlordiazepoxide HCl (Librium -) 50 mg PO [id number] [facility] Stop: 11/06/18 05:01 Chlordiazepoxide HCl (Librium -) 25 mg PO [id number] [facility] Stop: 11/07/18 05:01 Chlordiazepoxide HCl (Librium -) 15 mg PO [id number] [facility] Stop: 11/08/18 05:01 Chlordiazepoxide HCl (Librium -) 25 mg PO Q4H PRN PRN Reason: WITHDRAWAL(CONT SUBST) Stop: 11/08/18 07:14 Chlordiazepoxide HCl (Librium -) 10 mg PO [id number] [facility] Stop: 11/09/18 05:01 Chlorhexidine Gluconate (Hibiclens For Decolonization -) 1 applic TP HS [facility] Enoxaparin Sodium (Lovenox -) 40 mg SQ DAILY [facility] Last Admin: 11/05/18 09:41 Dose: 40 mg Propofol (Diprivan -) 1,000,000 mcg in 100 mls @ 25.855 mls/hr IVPB TITR [facility]; Protocol Last Admin: 11/05/18 04:12 Dose: 50 mcg/kg/min, 25.855 mls/hr Lactated Ringer's (Lactated Ringers Solution) 1,000 ml in 1,000 mls @ 125 mls/ hr IV ASDIR KOKO Last Admin: 11/05/18 05:54 Dose: 125 mls/hr Midazolam HCl 100 mg/ Sodium (Chloride) 100 mls @ 1 mls/hr IVPB TITR [facility]; Protocol Last Admin: 11/05/18 05:53 Dose: 10 mg/hr, 10 mls/hr Levetiracetam (Keppra Injection -) 1,500 mg IVPB BID [facility] Last Admin: 11/05/18 09:40 Dose: 1,500 mg Lorazepam (Ativan Injection -) 2 mg IVPUSH Q4H PRN PRN Reason: SHIVERING Last Admin: 11/05/18 05:52 Dose: 2 mg Mupirocin (Bactroban Ointment (For Decolonization) -) 1 applic NS BID [facility] Stop: 11/10/18 09:59 Last Admin: 11/05/18 09:39 Dose: 1 applic ASSESSMENT AND PLAN: Acute Respiratory Failure Status Epilepticus Seizure Disorder Lactic Acidosis Polysubstance Abuse h/o Traumatic Brain Injury - continue antiepileptics - hold all sedation to assess mental status - IVF - spontaneous breathing trials as tolerated - can extubate when mental status improved - DVT prophylaxis - continue ICU monitoring critical care time spent in reviewing chart, evaluating patient and formulating plan 35 min
[2018-11-05] MEDS ORDERED: hydrALAZINE HCL 20 MG/ML VIAL ONE (12:21)
[2018-11-05] MEDS: chlordiazePOXIDE HCL 25 MG CAPSULE PO SCH ×2 (13:23→20:56)
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
[2018-11-05] MEDS ORDERED: ACETAMINOPHEN 1000 MG/100 ML VIAL (NON FORMULARY) IVPB PRN (14:15)
[2018-11-05 14:43] LABS: ARTERIAL BLD GAS O2 SATURATION 97.7 % (90-98.9); ARTERIAL BLOOD GAS BASE EXCESS 0.3 meq/l (-2-2); ARTERIAL BLOOD GAS PCO2 39.3 mmHg (35-45); ARTERIAL BLOOD GAS PO2 92.8 mmHg (80-100); ARTERIAL BLOOD GAS pH 7.41 (7.35-7.45)
[2018-11-05 14:51] LABS: ALLENS TEST POSITIVE
[2018-11-05 16:02] LABS: INR 0.94 (0.83-1.09); PROTHROMBIN TIME (PATIENT) 11.1 SEC (9.7-13.0)
[2018-11-05 16:05] LABS: ACTIVATED PTT 24.6 SECONDS (25.2-36.5)
[2018-11-05] MEDS: CHLORHEXIDINE GLUCONATE 4% CLEANSER FOR DECOLONIZATION TP SCH (21:06)
[2018-11-06] MEDS: chlordiazePOXIDE HCL 25 MG CAPSULE PO SCH ×5 (00:10→22:34)
[2018-11-06] MEDS: LORazepam 2 MG/ML SDV VIAL IVPUSH PRN (02:47)
[2018-11-06] MEDS: LACTATED RINGERS SOLUTION 1,000 ML/1,000 ML INFUS.BAG IV SCH ×2 (06:09→07:13)
[2018-11-06] MEDS: PROPOFOL 1,000,000 MCG/100 ML VIAL IVPB SCH ×2 (06:09→07:13)
[2018-11-06 08:26] LABS: BASO % 0.4 % (0-2.0); HEMATOCRIT 37.2 % (35.4-49); HEMOGLOBIN 12.2 GM/dL (11.7-16.9); LYMPH % 8.8 % (8-40); MCH 28.4 pg (25.7-33.7); MCHC 32.9 g/dl (32.0-35.9); MEAN CELL VOLUME 86.3 fl (80-96); MEAN PLT VOLUME 8.7 fl (7.5-11.1); MONO % 9.4 % (3.8-10.2); NEUT % 80.4 % (42.8-82.8); PLATELET COUNT 282 K/MM3 (134-434); RBC 4.31 M/mm3 (4.00-5.60); RDW 14.4 % (11.9-15.9); WHITE BLOOD COUNT 15.4 K/mm3 (4.0-10.0)
[2018-11-06 08:55] LABS: ALBUMIN 2.8 g/dl (3.4-5.0); ALK PHOS 79 U/L (45-117); ANION GAP 8 MMOL/L (8-16); BILIRUBIN,TOTAL 0.5 mg/dL (0.2-1); BLOOD UREA NITROGEN 11 mg/dL (7-18); CALCIUM 7.8 mg/dL (8.5-10.1); CHLORIDE 109 mmol/L (98-107); CO2 27 mmol/L (21-32); CREATININE 0.8 mg/dL (0.55-1.3); GLUCOSE,RANDOM 82 mg/dL (74-106); MAGNESIUM 2.2 mg/dL (1.8-2.4); PHOSPHOROUS 2.6 mg/dL (2.5-4.9); POTASSIUM 3.7 mmol/L (3.5-5.1); SGOT/AST 14 U/L (15-37); SGPT/ALT 12 U/L (13-61); SODIUM 143 mmol/L (136-145); TOT PROT 5.5 g/dl (6.4-8.2)
--- NOTE | 2018-11-06 09:08 | PN ---
Physical Exam: SUBJECTIVE: Patient seen and examined this morning. Remains intubated and sedated. No acute overnight events as per nursing. OBJECTIVE: Vital Signs Period Temp Pulse Resp BP Sys/Kay Pulse Ox Last 24 Hr 98.8 F-101 F 85-103 16-28 100-124/55-72 100-100 GENERAL: Intubated HEAD: NCAT EYES: Pupils sluggish, equal, reactive ENT: Moist mucous membranes. NECK: Supple LUNGS: Mechincal breath sounds, Diminished breath sounds at the bases HEART: Regular rate and rhythm, S1, S2 without murmur ABDOMEN: Soft, nontender, nondistended, + bowel sounds EXTREMITIES: 2+ pulses, no edema NEUROLOGICAL: Sedated SKIN: Warm, dry Laboratory Results - last 24 hr 11/05/18 11/05/18 11/05/18 06:38 08:00 08:00 WBC Ui Ux Developer RBC Ui Ux Developer Hgb Ui Ux Developer Hct Ui Ux Developer MCV Ui Ux Developer MCH Ui Ux Developer MCHC Ui Ux Developer RDW Ui Ux Developer Plt Count No Result Required. MPV No Result Required. Absolute Neuts (auto) Ui Ux Developer Neutrophils % Ui Ux Developer Lymphocytes % Ui Ux Developer Monocytes % Ui Ux Developer Eosinophils % Ui Ux Developer Basophils % Ui Ux Developer Nucleated RBC % Ui Ux Developer PT with INR INR PTT (Actin FS) Puncture Site ABG pH ABG pCO2 at Pt Temp ABG pO2 at Pt Temp ABG HCO3 ABG O2 Sat (Measured) ABG O2 Content ABG Base Excess [place] Test O2 Delivery Device Oxygen Flow Rate Vent Mode Mechanical Rate Sodium 143 Potassium 3.7 Chloride 109 H Carbon Dioxide 24 Anion Gap 11 BUN 19 H Creatinine 0.9 Creat Clearance w eGFR > 60 POC Glucometer Random Glucose 84 Lactic Acid Calcium 7.6 L Phosphorus 2.8 Magnesium 1.9 Total Bilirubin 0.5 AST 18 ALT 19 Alkaline Phosphatase 77 Creatine Kinase 285 Creatine Kinase Index 0.7 CK-MB (CK-2) 2.2 Total Protein 5.7 L Albumin 3.1 L TSH 0.35 L Urine Color Urine Appearance Urine pH Ur Specific [employer] Urine Protein Urine Glucose (UA) Urine Ketones Urine Blood Urine Nitrite Urine Bilirubin Urine Urobilinogen Ur Leukocyte Esterase Opiates Screen Negative Methadone Screen Negative Barbiturate Screen Negative Phencyclidine Screen Negative Ur Amphetamines Screen Negative MDMA (Ecstasy) Screen Negative Benzodiazepines Screen Positive A* Cocaine Screen Positive A* U Marijuana (THC) Screen Positive A* Alcohol, Quantitative 11/05/18 11/05/18 11/05/18 08:00 08:20 10:30 WBC RBC Hgb Hct MCV MCH MCHC RDW Plt Count MPV Absolute Neuts (auto) Neutrophils % Lymphocytes % Monocytes % Eosinophils % Basophils % Nucleated RBC % PT with INR INR PTT (Actin FS) Puncture Site ABG pH ABG pCO2 at Pt Temp ABG pO2 at Pt Temp ABG HCO3 ABG O2 Sat (Measured) ABG O2 Content ABG Base Excess [place] Test O2 Delivery Device Oxygen Flow Rate Vent Mode Mechanical Rate Sodium Potassium Chloride Carbon Dioxide Anion Gap BUN Creatinine Creat Clearance w eGFR POC Glucometer Random Glucose Lactic Acid 0.8 Calcium Phosphorus Magnesium Total Bilirubin AST ALT Alkaline Phosphatase Creatine Kinase Creatine Kinase Index CK-MB (CK-2) Total Protein Albumin TSH Urine Color Ltyellow Urine Appearance Turbid Urine pH 6.0 Ur Specific [employer] [place] [place] 1.014 Urine Protein Negative Urine Glucose (UA) Negative Urine Ketones 1+ H Urine Blood Negative Urine Nitrite Negative Urine Bilirubin Negative Urine Urobilinogen Negative Ur Leukocyte Esterase Negative Opiates Screen Methadone Screen Barbiturate Screen Phencyclidine Screen Ur Amphetamines Screen MDMA (Ecstasy) Screen Benzodiazepines Screen Cocaine Screen U Marijuana (THC) Screen Alcohol, Quantitative < 3.0 11/05/18 11/05/18 11/05/18 10:30 13:21 14:25 WBC 11.0 H RBC 4.19 Hgb 12.0 Hct 35.9 MCV 85.9 MCH 28.7 MCHC 33.4 RDW 14.1 Plt Count 302 D MPV 7.9 Absolute Neuts (auto) 8.0 Neutrophils % 73.2 Lymphocytes % 15.2 D Monocytes % 10.2 Eosinophils % 0.7 Basophils % 0.7 Nucleated RBC % 0 PT with INR INR PTT (Actin FS) Puncture Site Right radial ABG pH 7.41 ABG pCO2 at Pt Temp 39.3 ABG pO2 at Pt Temp 92.8 D ABG HCO3 24.4 ABG O2 Sat (Measured) 97.7 ABG O2 Content 15.9 ABG Base Excess 0.3 [place] Test Positive O2 Delivery Device Vent Oxygen Flow Rate 40% Vent Mode [id number] Mechanical Rate Yes Sodium Potassium Chloride Carbon Dioxide Anion Gap BUN Creatinine Creat Clearance w eGFR POC Glucometer [id number] Random Glucose Lactic Acid Calcium Phosphorus Magnesium Total Bilirubin AST ALT Alkaline Phosphatase Creatine Kinase Creatine Kinase Index CK-MB (CK-2) Total Protein Albumin TSH Urine Color Urine Appearance Urine pH Ur Specific [employer] [place] Urine Protein Urine Glucose (UA) Urine Ketones Urine Blood Urine Nitrite Urine Bilirubin Urine Urobilinogen Ur Leukocyte Esterase Opiates Screen Methadone Screen Barbiturate Screen Phencyclidine Screen Ur Amphetamines Screen MDMA (Ecstasy) Screen Benzodiazepines Screen Cocaine Screen U Marijuana (THC) Screen Alcohol, Quantitative 11/05/18 11/05/18 11/06/18 15:15 15:15 08:00 WBC 15.4 H RBC 4.31 Hgb 12.2 Hct 37.2 MCV 86.3 MCH 28.4 MCHC 32.9 RDW 14.4 Plt Count 282 MPV 8.7 D Absolute Neuts (auto) 12.4 H Neutrophils % 80.4 Lymphocytes % 8.8 D Monocytes % 9.4 Eosinophils % 1.0 Basophils % 0.4 Nucleated RBC % 0 PT with INR 11.10 INR 0.94 PTT (Actin FS) 24.6 L Puncture Site ABG pH ABG pCO2 at Pt Temp ABG pO2 at Pt Temp ABG HCO3 ABG O2 Sat (Measured) ABG O2 Content ABG Base Excess [place] Test O2 Delivery Device Oxygen Flow Rate Vent Mode Mechanical Rate Sodium Potassium Chloride Carbon Dioxide Anion Gap BUN Creatinine Creat Clearance w eGFR POC Glucometer Random Glucose Lactic Acid 0.8 Calcium Phosphorus Magnesium Total Bilirubin AST ALT Alkaline Phosphatase Creatine Kinase Creatine Kinase Index CK-MB (CK-2) Total Protein Albumin TSH Urine Color Urine Appearance Urine pH Ur Specific [employer] Urine Protein Urine Glucose (UA) Urine Ketones Urine Blood Urine Nitrite Urine Bilirubin Urine Urobilinogen Ur Leukocyte Esterase Opiates Screen Methadone Screen Barbiturate Screen Phencyclidine Screen Ur Amphetamines Screen MDMA (Ecstasy) Screen Benzodiazepines Screen Cocaine Screen U Marijuana (THC) Screen Alcohol, Quantitative Microbiology 11/05/18 07:00 Urine - Urine - Catheterized Urine Culture - Final NO GROWTH OBTAINED 11/05/18 05:37 Blood - Peripheral Venous Blood Culture - Preliminary NO GROWTH OBTAINED AFTER 24 HOURS, INCUBATION TO CONTINUE FOR 4 DAYS. 11/05/18 05:37 Blood - Peripheral Venous Blood Culture - Preliminary NO GROWTH OBTAINED AFTER 24 HOURS, INCUBATION TO CONTINUE FOR 4 DAYS. Active Medications Acetaminophen (Ofirmev Injection -) 1,000 mg IVPB Q6H PRN PRN Reason: FEVER Chlordiazepoxide HCl (Librium -) 25 mg PO [id number] [facility] Stop: 11/07/18 05:01 Chlordiazepoxide HCl (Librium -) 15 mg PO [id number] [facility] Stop: 11/08/18 05:01 Chlordiazepoxide HCl (Librium -) 25 mg PO Q4H PRN PRN Reason: WITHDRAWAL(CONT SUBST) Stop: 11/08/18 07:14 Chlordiazepoxide HCl (Librium -) 10 mg PO [id number] [facility] Stop: 11/09/18 05:01 Chlorhexidine Gluconate (Hibiclens For Decolonization -) 1 applic TP HS [facility] Last Admin: 11/05/18 21:06 Dose: 1 applic Enoxaparin Sodium (Lovenox -) 40 mg SQ DAILY [facility] Last Admin: 11/05/18 09:41 Dose: 40 mg Propofol (Diprivan -) 1,000,000 mcg in 100 mls @ 25.855 mls/hr IVPB TITR [facility]; Protocol Last Admin: 11/06/18 06:09 Dose: 50 mcg/kg/min, 25.855 mls/hr Lactated Ringer's (Lactated Ringers Solution) 1,000 ml in 1,000 mls @ 125 mls/ hr IV ASDIR [facility] Last Admin: 11/06/18 06:09 Dose: 125 mls/hr Levetiracetam (Keppra Injection -) 1,500 mg IVPB BID [facility] Last Admin: 11/05/18 21:06 Dose: 1,500 mg Lorazepam (Ativan Injection -) 2 mg IVPUSH Q4H PRN PRN Reason: SHIVERING Last Admin: 11/06/18 02:47 Dose: 2 mg Mupirocin (Bactroban Ointment (For Decolonization) -) 1 applic NS BID [facility] Stop: 11/10/18 09:59 Last Admin: 11/05/18 21:06 Dose: 1 applic ASSESSMENT/PLAN: 38 y/o M with PMHx of Polysubstance (EtOH, Marijuana) abuse, TBI, Seizure disorder with poor medication compliance was BIBEMS for seizures #Neuro Status Epilepticus Lactic acidosis Hx of Seizure Disorder Hx of Polysubstance abuse (EtOH, Marijuana) -Likely to medication non-compliance; In part due to EtOH + Polysubstance abuse -Lactic acidosis likely due to seizure activity, Resolved -UTox + for Cocaine, Benzo's, Marijuana -Head CT (11/05): No evidence of acute intracranial pathology. -Sedated on Propofol -Fosphenytoin 1000mg, Phenytoin 1000mg Given x1 -Keppra 1500mg IV BID -Ativan 2mg IV Q4h PRN -Continue Librium protocol (Started on 11/05) -Continue LR @ 125 mls/hr -Neurology (Dr. Harris) consulted, Appreciate Rec's -Monitor I&Os, murphy in place -Neurochecks Q4H -Aspiration precautions -EKG, ECHO pending -Will need outpatient follow up for tighter seizure control #Pulmonology Acute Respiratory Failure -Sedated on Propofol -Intubated (on 11/05) -Vent settings: 450/16/40%/+5 -Maintain SPO2 > 90% -Monitor Ppeak, Pplat #Cardiovascular -BP and HR stable on Sedation -No pressors at this time -Monitor and maintain MAP >65 #ID -Temp 101 at 14:00, Afebrile since -WBC 15.4 this AM -Repeat Blood cx and UA, Sputum Cx pending -Initial Urine cx negative -CXR (11/05): Tip of NG tube is in the left upper quadrant/stomach. There is an IVC filter, possibly biliary stent and prominent hilar markings. The lung bases appear well aerated. -Ofirmev 1000mg IV Q6H PRN for fever -Zosyn #Endocrine Elevated BG Low TSH -Continue to monitor blood glucose -Check Free T4, A1c #FEN -LR @ 125 mls/hr -Lytes WNL -NPO while intubated #PPx -DVT: Lovenox #LTD -Intubated on 11/05 -Murphy placed on 11/05 Dispo: Continue to monitor in ICU Visit type - Emergency Visit Emergency Visit: Yes ED Registration Date: 11/05/18 Care time: The patient presented to the Emergency Department on the above date and was hospitalized for further evaluation of their emergent condition. - New Patient This patient is new to me today: Yes Date on this admission: 11/06/18 - Critical Care Critical Care patient: Yes Total Critical Care Time (in minutes): 36 Critical Care Statement: The care of this patient involved high complexity decision making to prevent further life threatening deterioration of the patient 's condition and/or to evaluate & treat vital organ system(s) failure or risk of failure.
[2018-11-06] MEDS: MUPIROCIN 2% TOPICAL OINTMENT FOR DECOLONIZATION NS SCH ×2 (10:11→21:13)
[2018-11-06] MEDS: ENOXAPARIN NA (PORCINE) 40 MG/0.4 ML DISP.SYRIN SQ SCH (10:12)
[2018-11-06] MEDS: levETIRAcetam 500 MG/5 ML INJECTION VIAL IVPB SCH ×2 (10:14→21:04)
--- NOTE | 2018-11-06 10:46 | PN ---
Teaching Attending Note Name of Resident: Amanda Martinez ATTENDING PHYSICIAN STATEMENT I saw and evaluated the patient. I reviewed the resident's note and discussed the case with the resident. I agree with the resident's findings and plan as documented. SUBJECTIVE: Pt seen and examined in the ICU. Remains intubated, sedated. Fever overnight, cultured. Vented on volume assist control with 40% FiO2. OBJECTIVE: Vital Signs Period Temp Pulse Resp BP Sys/Kay Pulse Ox Last 24 Hr 98.8 F-101 F 85-103 16-28 107-127/56-75 98-100 Intake & Output 11/03/18 11/04/18 11/05/18 11/06/18 23:59 23:59 23:59 23:59 Intake Total 2714 1015 Output Total 1720 500 Balance 994 515 Weight 65.589 kg 64.8 kg Gen: intubated, sedated Heart: RRR Lung: decreased breath sounds at the bases Abd: soft, nontender Ext: no edema CBC, BMP 11/06/18 08:00 11/06/18 08:00 Active Medications Acetaminophen (Ofirmev Injection -) 1,000 mg IVPB Q6H PRN PRN Reason: FEVER Chlordiazepoxide HCl (Librium -) 25 mg PO [id number] [facility] Stop: 11/07/18 05:01 Last Admin: 11/06/18 10:12 Dose: 25 mg Chlordiazepoxide HCl (Librium -) 15 mg PO [id number] [facility] Stop: 11/08/18 05:01 Chlordiazepoxide HCl (Librium -) 25 mg PO Q4H PRN PRN Reason: WITHDRAWAL(CONT SUBST) Stop: 11/08/18 07:14 Chlordiazepoxide HCl (Librium -) 10 mg PO [id number] [facility] Stop: 11/09/18 05:01 Chlorhexidine Gluconate (Hibiclens For Decolonization -) 1 applic TP HS [facility] Last Admin: 11/05/18 21:06 Dose: 1 applic Enoxaparin Sodium (Lovenox -) 40 mg SQ DAILY [facility] Last Admin: 11/06/18 10:12 Dose: 40 mg Propofol (Diprivan -) 1,000,000 mcg in 100 mls @ 25.855 mls/hr IVPB TITR [facility]; Protocol Last Titration: 11/06/18 10:14 Dose: 0 mcg/kg/min, 0 mls/hr Lactated Ringer's (Lactated Ringers Solution) 1,000 ml in 1,000 mls @ 125 mls/ hr IV ASDIR [facility] Last Admin: 11/06/18 07:13 Dose: 125 mls/hr Levetiracetam (Keppra Injection -) 1,500 mg IVPB BID [facility] Last Admin: 11/06/18 10:14 Dose: 1,500 mg Lorazepam (Ativan Injection -) 2 mg IVPUSH Q4H PRN PRN Reason: SHIVERING Last Admin: 11/06/18 02:47 Dose: 2 mg Mupirocin (Bactroban Ointment (For Decolonization) -) 1 applic NS BID [facility] Stop: 11/10/18 09:59 Last Admin: 11/06/18 10:11 Dose: 1 applic ASSESSMENT AND PLAN: Acute Respiratory Failure Status Epilepticus Seizure Disorder Lactic Acidosis Polysubstance Abuse h/o Traumatic Brain Injury - continue antiepileptics - hold all sedation to assess mental status - IVF - will start empiric antibiotics to cover aspiration - spontaneous breathing trials as tolerated - can extubate when mental status improved - DVT prophylaxis - continue ICU monitoring critical care time spent in reviewing chart, evaluating patient and formulating plan 35 min
[2018-11-06] MEDS ORDERED: PIPERACILLIN/TAZOBACTAM 4.5 GM VIAL IVPB ONE ×3 (12:04→20:10)
[2018-11-06] MEDS ORDERED: DEXTROSE 5%-WATER 100 ML IVPB ONE ×3 (12:05→20:10)
[2018-11-06] MEDS: PIPERACILLIN/TAZOB 4.5 GM 4.5 GM in DEXTROSE 5%-WATER 100 ML IVPB SCH ×3 (12:09→21:03)
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
--- NOTE | 2018-11-06 15:55 | PN ---
Teaching Attending Note Name of Resident: Elana Sherman ATTENDING PHYSICIAN STATEMENT I saw and evaluated the patient. I reviewed the resident's note and discussed the case with the resident. I agree with the resident's findings and plan as documented. SUBJECTIVE: OBJECTIVE: patient is extubated he is still drowsy post extubation s1 and S2 rrr lungs CTA ASSESSMENT AND PLAN: this is a 38 y/o male with hx of seizure disorder, Poly-substance abuse ( alcohol and marijuana) -admitted for status epilepticus - s/p extubation plan: status epilepticus - alcohol vs marijuana vs poor compliance - extubated today - d/c propafol drip - f/u with neurology consultation - c/w keppra IV switch to PO when the patient is more alert - IV midazolam prn for seizure - IVP diazepam Acute respiratory failure - resolved - patient s/p extubation
[2018-11-06 17:09] LABS: URINE APPEARANCE CLOUDY; URINE BILIRUBIN NEGATIVE (<2.0 mg/dL); URINE COLOR LTYELLOW; URINE GLUCOSE (UA) NEGATIVE (NEGATIVE); URINE KETONE 1+ (NEGATIVE); URINE LEUK ESTERASE NEGATIVE (NEGATIVE); URINE NITRITE NEGATIVE (NEGATIVE); URINE PROTEIN NEGATIVE (NEGATIVE); URINE UROBILINOGEN NEGATIVE mg/dL (0.2-1.0)
--- NOTE | 2018-11-06 18:35 | PN ---
Physical Exam: SUBJECTIVE: Patient seen and examined at bedside. No acute events overnight per nurse. Pt seen intubated. Will open eyes in response to physical stimuli. OBJECTIVE: Vital Signs Temperature 99.2 F 11/06/18 14:00 Pulse Rate 88 11/06/18 16:00 Respiratory Rate 19 11/06/18 16:00 Blood Pressure 108/67 11/06/18 16:00 O2 Sat by Pulse Oximetry (%) 100 11/06/18 16:00 GENERAL: Intubated. Opens eyes upon physical stimuli. HEENT: AT/NC. EOMI. DARRELL. Moist mucus membranes. NECK: Supple. LUNGS: Decreased breath sounds at bases. HEART: RRR. Normal S1, S2. No murmurs noted. ABDOMEN: Soft, NT/ND. +BS in all 4Q's. EXTREMITIES: 2+ pulses, no peripheral edema noted. NEUROLOGICAL: Unable to assess due to sedation. SKIN: Warm, dry, normal turgor, no rashes or lesions noted CBC, BMP 11/06/18 08:00 11/06/18 08:00 Active Medications Acetaminophen (Ofirmev Injection -) 1,000 mg IVPB Q6H PRN PRN Reason: FEVER Chlordiazepoxide HCl (Librium -) 25 mg PO [id number] [facility] Stop: 11/07/18 05:01 Last Admin: 11/06/18 16:33 Dose: Not Given Chlordiazepoxide HCl (Librium -) 15 mg PO [id number] [facility] Stop: 11/08/18 05:01 Chlordiazepoxide HCl (Librium -) 25 mg PO Q4H PRN PRN Reason: WITHDRAWAL(CONT SUBST) Stop: 11/08/18 07:14 Chlordiazepoxide HCl (Librium -) 10 mg PO [id number] [facility] Stop: 11/09/18 05:01 Chlorhexidine Gluconate (Hibiclens For Decolonization -) 1 applic TP HS [facility] Last Admin: 11/05/18 21:06 Dose: 1 applic Enoxaparin Sodium (Lovenox -) 40 mg SQ DAILY [facility] Last Admin: 11/06/18 10:12 Dose: 40 mg Propofol (Diprivan -) 1,000,000 mcg in 100 mls @ 25.855 mls/hr IVPB TITR [facility]; Protocol Last Titration: 11/06/18 10:14 Dose: 0 mcg/kg/min, 0 mls/hr Lactated Ringer's (Lactated Ringers Solution) 1,000 ml in 1,000 mls @ 125 mls/ hr IV ASDIR [facility] Last Admin: 11/06/18 07:13 Dose: 125 mls/hr Piperacillin Sod/Tazobactam (Sod 4.5 gm/ Dextrose) 100 mls @ 200 mls/hr IVPB Q6H-IV [facility]; Protocol Last Admin: 11/06/18 15:58 Dose: 200 mls/hr Levetiracetam (Keppra Injection -) 1,500 mg IVPB BID [facility] Last Admin: 11/06/18 10:14 Dose: 1,500 mg Lorazepam (Ativan Injection -) 2 mg IVPUSH Q4H PRN PRN Reason: SHIVERING Last Admin: 11/06/18 02:47 Dose: 2 mg Mupirocin (Bactroban Ointment (For Decolonization) -) 1 applic NS BID [facility] Stop: 11/10/18 09:59 Last Admin: 11/06/18 10:11 Dose: 1 applic ASSESSMENT/PLAN: 38M with PMHx of Polysubstance (EtOH, Marijuana) abuse, TBI, Seizure disorder with poor medication compliance was BIBEMS for seizures #Status Epilepticus; 2/2 medication non-compliance vs. alcohol abuse vs. other polysubstance abuse -LR @ 125cc/hr, murphy in place -Keppra 1500 IV BID -Ativan 2 mg IV Q4H -d/c Propofol -Fosphenytoin 1000mg, Phenytoin 1000mg Given x1 -Cont Librium protocol (started 11/05) -Neurochecks Q4H, aspiration precautions -Per neuro, Restart Keppra 1000 mg PO BID and transition to oral medication when able -UTox +benzos, cocaine, marijuana -EEG #Acute Hypoxic Respiratory Failure; Resolved. -s/p extubation, currently satting 100% on 4L NC -Maintain SpO2 > 90% #Lactic Acidosis: likely 2/2 seizure activity, value was 7.7 -repeat lactic acid at 8am -continue fluid hydration #Leukocytosis; WBC 15.4, febrile yesterday at 101, but has been afebrile today. -Repeat BCx neg x24h (11/05); Sputum Cx pending; UCx neg -Ofirmev 1000mg IV Q6H PRN for fever -Zosyn 4.5 gm Q6H IVPB (started 11/06); started empiric IV abx to cover for possible aspiration #FEN -LR @ 125cc/hr -lytes normal -NPO while intubated #Prophylaxis -Lovenox #Disposition -transfer to [facility]-surg -full code Visit type - Emergency Visit Emergency Visit: Yes ED Registration Date: 11/05/18 Care time: The patient presented to the Emergency Department on the above date and was hospitalized for further evaluation of their emergent condition. - New Patient This patient is new to me today: Yes Date on this admission: 11/06/18 - Critical Care Critical Care patient: Yes Total Critical Care Time (in minutes): 40 Critical Care Statement: The care of this patient involved high complexity decision making to prevent further life threatening deterioration of the patient 's condition and/or to evaluate & treat vital organ system(s) failure or risk of failure.
--- NOTE | 2018-11-06 19:11 | EKG ---
Test Reason : Blood Pressure : / mmHG Vent. Rate : 124 BPM Atrial Rate : 124 BPM P-R Int : 142 ms QRS Dur : 084 ms QT Int : 320 ms P-R-T Axes : 077 078 068 degrees QTc Int : 459 ms SINUS TACHYCARDIA RIGHT ATRIAL ENLARGEMENT BORDERLINE ECG WHEN COMPARED WITH ECG OF 06-JAN-2018 12:17, VENT. RATE HAS INCREASED BY 41 BPM Confirmed by HAILEY SHIPMAN MD ([id number]) on 11/06/2018 7:11:07 PM Referred By: Confirmed By:HAILEY SHIPMAN MD
[2018-11-06] MEDS: CHLORHEXIDINE GLUCONATE 4% CLEANSER FOR DECOLONIZATION TP SCH (21:15)
[2018-11-07] MEDS ORDERED: PIPERACILLIN/TAZOBACTAM 4.5 GM VIAL IVPB ONE ×2 (01:09→09:13)
[2018-11-07] MEDS ORDERED: DEXTROSE 5%-WATER 100 ML IVPB ONE ×2 (01:10→09:13)
[2018-11-07] MEDS: LACTATED RINGERS SOLUTION 1,000 ML/1,000 ML INFUS.BAG IV SCH ×2 (01:23→05:38)
[2018-11-07] MEDS: PIPERACILLIN/TAZOB 4.5 GM 4.5 GM in DEXTROSE 5%-WATER 100 ML IVPB SCH ×2 (03:12→09:30)
[2018-11-07] MEDS: chlordiazePOXIDE HCL 25 MG CAPSULE PO SCH (05:37)
[2018-11-07] MEDS: PROPOFOL 1,000,000 MCG/100 ML VIAL IVPB SCH (05:38)
[2018-11-07 06:01] LABS: BASO % 0.5 % (0-2.0); EOS % 2.8 % (0-4.5); HEMATOCRIT 35.5 % (35.4-49); HEMOGLOBIN 11.9 GM/dL (11.7-16.9); LYMPH % 8.8 % (8-40); MCH 28.9 pg (25.7-33.7); MCHC 33.5 g/dl (32.0-35.9); MEAN CELL VOLUME 86.2 fl (80-96); MEAN PLT VOLUME 8.1 fl (7.5-11.1); MONO % 10.2 % (3.8-10.2); NEUT % 77.7 % (42.8-82.8); PLATELET COUNT 270 K/MM3 (134-434); RBC 4.12 M/mm3 (4.00-5.60); WHITE BLOOD COUNT 10.5 K/mm3 (4.0-10.0)
[2018-11-07 06:31] LABS: ALBUMIN 2.6 g/dl (3.4-5.0); ALK PHOS 70 U/L (45-117); ANION GAP 7 MMOL/L (8-16); BLOOD UREA NITROGEN 9 mg/dL (7-18); CHLORIDE 106 mmol/L (98-107); CO2 28 mmol/L (21-32); CREATININE 0.7 mg/dL (0.55-1.3); GLUCOSE,RANDOM 77 mg/dL (74-106); PHOSPHOROUS 2.6 mg/dL (2.5-4.9); POTASSIUM 3.5 mmol/L (3.5-5.1); SGOT/AST 14 U/L (15-37); SGPT/ALT 12 U/L (13-61); SODIUM 141 mmol/L (136-145); TOT PROT 5.2 g/dl (6.4-8.2)
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
--- NOTE | 2018-11-07 08:12 | PN ---
Physical Exam: SUBJECTIVE: Patient seen and examined this morning. Extubated yesterday, tolerating nasal canulla @ 3L. No acute overnight events. Mild cough otherwise denies fevers, chills, chest pain, SOB, nausea, vomiting, diarrhea, constipation. OBJECTIVE: Vital Signs Period Temp Pulse Resp BP Sys/Kay Pulse Ox Last 24 Hr 98 F-99.2 F 76-103 16-23 100-127/54-75 94-100 GENERAL: A&Ox3, NAD HEAD: NCAT EYES: PERRL, EOMI ENT: Moist mucous membranes NECK: Supple LUNGS: Diminished breath sounds at the bases, Rhonchi at the upper lobes HEART: Regular rate and rhythm, S1, S2 without murmur ABDOMEN: Soft, nontender, nondistended, + bowel sounds EXTREMITIES: 2+ pulses, no edema NEUROLOGICAL: Cranial nerves II through XII grossly intact. 5/5 Muscle strength throughout. Gross sensation intact globally. CIWA 4 SKIN: Warm, dry Laboratory Results - last 24 hr 11/06/18 11/06/18 11/06/18 08:00 08:00 16:00 WBC 15.4 H RBC 4.31 Hgb 12.2 Hct 37.2 MCV 86.3 MCH 28.4 MCHC 32.9 RDW 14.4 Plt Count 282 MPV 8.7 D Absolute Neuts (auto) 12.4 H Neutrophils % 80.4 Lymphocytes % 8.8 D Monocytes % 9.4 Eosinophils % 1.0 Basophils % 0.4 Nucleated RBC % 0 Sodium 143 Potassium 3.7 Chloride 109 H Carbon Dioxide 27 Anion Gap 8 BUN 11 Creatinine 0.8 Creat Clearance w eGFR > 60 Random Glucose 82 Hemoglobin A1c % Calcium 7.8 L Phosphorus 2.6 Magnesium 2.2 Total Bilirubin 0.5 AST 14 L ALT 12 L Alkaline Phosphatase 79 Total Protein 5.5 L Albumin 2.8 L Free T4 Urine Color Ltyellow Urine Appearance Cloudy Urine pH 6.0 Ur Specific Elora 1.014 Urine Protein Negative Urine Glucose (UA) Negative Urine Ketones 1+ H Urine Blood Negative Urine Nitrite Negative Urine Bilirubin Negative Urine Urobilinogen Negative Ur Leukocyte Esterase Negative 11/07/18 11/07/18 11/07/18 05:30 05:30 05:30 WBC 10.5 H RBC 4.12 Hgb 11.9 Hct 35.5 MCV 86.2 MCH 28.9 MCHC 33.5 RDW 14.0 Plt Count 270 MPV 8.1 Absolute Neuts (auto) 8.2 H Neutrophils % 77.7 Lymphocytes % 8.8 Monocytes % 10.2 Eosinophils % 2.8 D Basophils % 0.5 Nucleated RBC % 0 Sodium 141 Potassium 3.5 Chloride 106 Carbon Dioxide 28 Anion Gap 7 L BUN 9 Creatinine 0.7 Creat Clearance w eGFR > 60 Random Glucose 77 Hemoglobin A1c % 5.1 Calcium 8.0 L Phosphorus 2.6 Magnesium 2.0 Total Bilirubin 1.0 AST 14 L ALT 12 L Alkaline Phosphatase 70 Total Protein 5.2 L Albumin 2.6 L Free T4 1.03 Urine Color Urine Appearance Urine pH Ur Specific Elora Urine Protein Urine Glucose (UA) Urine Ketones Urine Blood Urine Nitrite Urine Bilirubin Urine Urobilinogen Ur Leukocyte Esterase Microbiology 11/05/18 05:37 Blood - Peripheral Venous Blood Culture - Preliminary NO GROWTH OBTAINED AFTER 48 HOURS, INCUBATION TO CONTINUE FOR 3 DAYS. 11/05/18 05:37 Blood - Peripheral Venous Blood Culture - Preliminary NO GROWTH OBTAINED AFTER 48 HOURS, INCUBATION TO CONTINUE FOR 3 DAYS. 11/05/18 15:15 Blood - Peripheral Venous Blood Culture - Preliminary NO GROWTH OBTAINED AFTER 24 HOURS, INCUBATION TO CONTINUE FOR 4 DAYS. 11/05/18 15:15 Blood - Peripheral Venous Blood Culture - Preliminary NO GROWTH OBTAINED AFTER 24 HOURS, INCUBATION TO CONTINUE FOR 4 DAYS. 11/05/18 14:57 Sputum - Endotrachea Suction/Ventilator Sputum Culture - Preliminary Pending Organism 11/05/18 07:00 Urine - Urine - Catheterized Urine Culture - Final NO GROWTH OBTAINED Active Medications Acetaminophen (Tylenol -) 650 mg PO Q6H PRN PRN Reason: FEVER Amoxicillin/Clavulanate Potassium (Augmentin - 875mg Tablet) 1 tab PO BID@0800, 1730 [facility] Stop: 11/10/18 17:31 Chlordiazepoxide HCl (Librium -) 15 mg PO [id number] [facility] Stop: 11/08/18 05:01 Chlordiazepoxide HCl (Librium -) 25 mg PO Q4H PRN PRN Reason: WITHDRAWAL(CONT SUBST) Stop: 11/08/18 07:14 Chlordiazepoxide HCl (Librium -) 10 mg PO F1S-OAG [facility] Stop: 11/09/18 05:01 Chlorhexidine Gluconate (Hibiclens For Decolonization -) 1 applic TP HS [facility] Last Admin: 11/06/18 21:15 Dose: 1 applic Enoxaparin Sodium (Lovenox -) 40 mg SQ DAILY [facility] Last Admin: 11/07/18 09:34 Dose: 40 mg Levetiracetam (Keppra -) 1,000 mg PO BID [facility] Lorazepam (Ativan Injection -) 2 mg IVPUSH Q4H PRN PRN Reason: SHIVERING Last Admin: 11/06/18 02:47 Dose: 2 mg Mupirocin (Bactroban Ointment (For Decolonization) -) 1 applic NS BID [facility] Stop: 11/10/18 09:59 Last Admin: 11/07/18 09:35 Dose: 1 applic ASSESSMENT/PLAN: 38 y/o M with PMHx of Polysubstance (EtOH, Marijuana) abuse, TBI, Seizure disorder with poor medication compliance was BIBEMS for seizures #Neuro Status Epilepticus Lactic acidosis Hx of Seizure Disorder Hx of Polysubstance abuse (EtOH, Marijuana) -Likely to medication non-compliance; In part due to EtOH + Polysubstance abuse -Lactic acidosis likely due to seizure activity, Resolved -UTox + for Cocaine, Benzo's, Marijuana -Head CT (11/05): No evidence of acute intracranial pathology. -No longer sedated -Fosphenytoin 1000mg, Phenytoin 1000mg Given x1 -Change Keppra to 1000mg PO BID; Continue Ativan 2mg IV Q4h PRN -CIWA 4 this am, Continue Librium protocol (Started on 11/05) -Tolerating PO -Neurology (Dr. Harris) consulted, Appreciate Rec's, Will need outpatient follow up for tighter seizure control -Monitor I&Os, murphy in place -Neurochecks Q4H -Aspiration precautions -EKG, ECHO pending #Pulmonology Acute Respiratory Failure -No longer sedated -Extubated (on 11/06) -Tolerating Nasal Canulla, titrate to maintain SPO2 > 90% #Cardiovascular -BP and HR stable on Sedation -No pressors at this time -Monitor and maintain MAP >65 #ID -Afebrile, WBC down trending -UA, Blood and Sputum Cx pending -CXR (11/07): The lungs are clear. An acute process is not seen. -Ofirmev 1000mg IV Q6H PRN for fever -D/C Zosyn; Start Augmentin PO #Endocrine Elevated BG Low TSH -A1c 5.1 -Free T4 1.03 -Continue to monitor #FEN -PO Fluids -Lytes WNL -Regular diet #PPx -DVT: Lovenox #LTD -Extubated on 11/06 -Murphy placed on 11/05 Dispo: Transfer to Med-Surg Visit type - Emergency Visit Emergency Visit: Yes ED Registration Date: 11/05/18 Care time: The patient presented to the Emergency Department on the above date and was hospitalized for further evaluation of their emergent condition. - New Patient This patient is new to me today: No - Critical Care Critical Care patient: Yes Total Critical Care Time (in minutes): 36 Critical Care Statement: The care of this patient involved high complexity decision making to prevent further life threatening deterioration of the patient 's condition and/or to evaluate & treat vital organ system(s) failure or risk of failure.
[2018-11-07] MEDS: levETIRAcetam 500 MG/5 ML INJECTION VIAL IVPB SCH (09:32)
[2018-11-07] MEDS: ENOXAPARIN NA (PORCINE) 40 MG/0.4 ML DISP.SYRIN SQ SCH (09:34)
[2018-11-07] MEDS: MUPIROCIN 2% TOPICAL OINTMENT FOR DECOLONIZATION NS SCH ×2 (09:35→22:42)
[2018-11-07] MEDS ORDERED: FLU VACCINE QUAD 60 MCG/0.5 ML (MDV 18-19) IM ONE (10:00)
[2018-11-07] MEDS: chlordiazePOXIDE 5 MG CAPSULE PO SCH ×3 (11:05→22:41)
--- NOTE | 2018-11-07 11:42 | PN ---
Teaching Attending Note Name of Resident: Amanda Martinez ATTENDING PHYSICIAN STATEMENT I saw and evaluated the patient. I reviewed the resident's note and discussed the case with the resident. I agree with the resident's findings and plan as documented. SUBJECTIVE: Pt seen and examined in the ICU. Extubated yesterday without incident. Denies shortness of breath. OBJECTIVE: Vital Signs Period Temp Pulse Resp BP Sys/Kay Pulse Ox Last 24 Hr 98 F-99.2 F 74-103 16-22 100-125/54-74 94-100 Intake & Output 11/04/18 11/05/18 11/06/18 11/07/18 23:59 23:59 23:59 23:59 Intake Total 2714 2884 1630 Output Total 1720 2500 350 Balance 630 933 0555 Weight 65.589 kg 64.41 kg 63.594 kg Gen: NAD at rest Heart: RRR Lung: decresed breath sounds at the bases Abd: soft, nontender Ext: no edema CBC, BMP 11/07/18 05:30 11/07/18 05:30 Active Medications Acetaminophen (Ofirmev Injection -) 1,000 mg IVPB Q6H PRN PRN Reason: FEVER Amoxicillin/Clavulanate Potassium (Augmentin - 875mg Tablet) 1 tab PO BID@0800, 1730 [facility] Stop: 11/10/18 17:31 Chlordiazepoxide HCl (Librium -) 15 mg PO [id number] [facility] Stop: 11/08/18 05:01 Chlordiazepoxide HCl (Librium -) 25 mg PO Q4H PRN PRN Reason: WITHDRAWAL(CONT SUBST) Stop: 11/08/18 07:14 Chlordiazepoxide HCl (Librium -) 10 mg PO [id number] [facility] Stop: 11/09/18 05:01 Chlorhexidine Gluconate (Hibiclens For Decolonization -) 1 applic TP HS [facility] Last Admin: 11/06/18 21:15 Dose: 1 applic Enoxaparin Sodium (Lovenox -) 40 mg SQ DAILY [facility] Last Admin: 11/07/18 09:34 Dose: 40 mg Levetiracetam (Keppra -) 1,500 mg PO BID [facility] Lorazepam (Ativan Injection -) 2 mg IVPUSH Q4H PRN PRN Reason: SHIVERING Last Admin: 11/06/18 02:47 Dose: 2 mg Mupirocin (Bactroban Ointment (For Decolonization) -) 1 applic NS BID [facility] Stop: 11/10/18 09:59 Last Admin: 11/07/18 09:35 Dose: 1 applic ASSESSMENT AND PLAN: s/p Acute Respiratory Failure s/p Status Epilepticus Seizure Disorder Lactic Acidosis from above Polysubstance Abuse h/o Traumatic Brain Injury r/o Aspiration Pneumonia - continue antiepileptics, can change to PO - can change antibiotics to PO and complete 5 day course - DVT prophylaxis - d/c planning
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
--- NOTE | 2018-11-07 14:08 | ECHO ---
Name: GREG ALMAZAN Exam:Adult Echocardiogram Study Date: 11/07/2018 11:43 AM Age: 38 yrs Reason For Study: ASSESS RT ATRIAL ENLARGEMENT Height: 72 in Weight: 140 lb BSA: 1.8 m2 MMode/2D Measurements & Calculations IVSd: 0.77 cm Ao root diam: 2.4 cm LVIDd: 4.4 cm LA dimension: 3.4 cm LVIDs: 3.0 cm LVPWd: 0.71 cm EDV(Teich): 87.4 ml ESV(Teich): 34.6 ml Doppler Measurements & Calculations MV E max anand: 83.9 cm/sec TR max anand: 202.7 cm/sec MV A max anand: 60.2 cm/sec TR max P.4 mmHg MV E/A: 1.4 MV dec time: 0.14 sec Med Peak E' Anand: 13.0 cm/sec Med E/e': 6.4 Lat Peak E' Anand: 12.0 cm/sec Lat E/e': 7.0 Procedure A complete two-dimensional transthoracic echocardiogram was performed (2D, M-mode, Doppler and color flow Doppler). Left Ventricle The left ventricle is normal in size. Left ventricular systolic function is normal. Ejection Fraction = 60- 65%. No regional wall motion abnormalities noted. Right Ventricle The right ventricle is normal size. The right ventricular systolic function is normal. RV systolic TD I is 16 cm/s. Atria The left atrial size is normal. Right atrial size is normal. Mitral Valve The mitral valve is normal in structure and function. There is no mitral regurgitation noted. Tricuspid Valve The tricuspid valve is normal in structure and function. There is mild tricuspid regurgitation. Right ventricular systolic pressure is normal. Aortic Valve The aortic valve is normal in structure and function. No aortic regurgitation is present. Pulmonic Valve The pulmonic valve is not well visualized. Great Vessels The aortic root is normal size. Pericardium/Pleura There is no pericardial effusion. Interpretation Summary The left ventricle is normal in size. Left ventricular systolic function is normal. No regional wall motion abnormalities noted. Ejection Fraction = 60-65%. The right ventricular systolic function is normal. The left atrial size is normal. Right atrial size is normal. There is mild tricuspid regurgitation. Right ventricular systolic pressure is normal. There is no pericardial effusion. Previous study is not available for comparison Reginald Paulino MD 11/07/2018 02:07 PM
[2018-11-07] MEDS ORDERED: ACETAMINOPHEN 325 MG TABLET (FP) PO PRN (14:56)
[2018-11-07] MEDS: AMOX TR/POT CLAV 875MG/125MG TABLETS (FP) PO SCH (17:46)
[2018-11-07] MEDS ORDERED: PT OWN MED DRAWER 7, Y5N ONE (17:58)
[2018-11-07] MEDS ORDERED: levETIRAcetam 500 MG TABLET (FP) PO SCH (22:00)
[2018-11-07] MEDS: levETIRAcetam 500 MG TABLET (FP) PO SCH (22:41)
[2018-11-07] MEDS: CHLORHEXIDINE GLUCONATE 4% CLEANSER FOR DECOLONIZATION TP SCH (22:42)
[2018-11-08] MEDS: chlordiazePOXIDE 5 MG CAPSULE PO SCH (05:44)
[2018-11-08 06:26] LABS: BASO % 0.7 % (0-2.0); EOS % 4.8 % (0-4.5); HEMATOCRIT 40.7 % (35.4-49); HEMOGLOBIN 13.4 GM/dL (11.7-16.9); LYMPH % 12.2 % (8-40); MCH 28.4 pg (25.7-33.7); MEAN PLT VOLUME 8.7 fl (7.5-11.1); MONO % 9.4 % (3.8-10.2); NEUT % 72.9 % (42.8-82.8); PLATELET COUNT 335 K/MM3 (134-434); RBC 4.73 M/mm3 (4.00-5.60); RDW 13.9 % (11.9-15.9); WHITE BLOOD COUNT 10.1 K/mm3 (4.0-10.0)
[2018-11-08 06:58] LABS: ALBUMIN 2.9 g/dl (3.4-5.0); ALK PHOS 80 U/L (45-117); ANION GAP 10 MMOL/L (8-16); BILIRUBIN,TOTAL 0.5 mg/dL (0.2-1); BLOOD UREA NITROGEN 6 mg/dL (7-18); CALCIUM 8.2 mg/dL (8.5-10.1); CHLORIDE 106 mmol/L (98-107); CO2 28 mmol/L (21-32); CREATININE 0.7 mg/dL (0.55-1.3); GLUCOSE,RANDOM 89 mg/dL (74-106); MAGNESIUM 1.6 mg/dL (1.8-2.4); PHOSPHOROUS 3.2 mg/dL (2.5-4.9); POTASSIUM 3.6 mmol/L (3.5-5.1); SGOT/AST 14 U/L (15-37); SGPT/ALT 17 U/L (13-61); SODIUM 144 mmol/L (136-145); TOT PROT 6.1 g/dl (6.4-8.2)
[2018-11-08] MEDS ORDERED: MAGNESIUM OXIDE 400 MG TABLET (FP) PO ONE (07:30)
[2018-11-08] MEDS ORDERED: PT OWN MED DRAWER 7, Y5N ONE (08:12)
[2018-11-08] MEDS: AMOX TR/POT CLAV 875MG/125MG TABLETS (FP) PO SCH (08:14)
[2018-11-08] MEDS: levETIRAcetam 500 MG TABLET (FP) PO SCH (09:15)
[2018-11-08] MEDS: ENOXAPARIN NA (PORCINE) 40 MG/0.4 ML DISP.SYRIN SQ SCH (09:15)
[2018-11-08] MEDS: MUPIROCIN 2% TOPICAL OINTMENT FOR DECOLONIZATION NS SCH (09:16)
[2018-11-08 10:25] VITALS: PULSE 74
[2018-11-08] MEDS ORDERED: chlordiazePOXIDE 5 MG CAPSULE PO SCH (11:00)
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
[2018-11-08 12:34] VITALS: BMI 19.0
--- NOTE | 2018-11-08 13:31 | PN ---
Teaching Attending Note Name of Resident: Amanda Martinez ATTENDING PHYSICIAN STATEMENT I saw and evaluated the patient. I reviewed the resident's note and discussed the case with the resident. I agree with the resident's findings and plan as documented. SUBJECTIVE: Pt seen and examined in the ICU. No events overnight. No seizure episodes. OBJECTIVE: Vital Signs Period Temp Pulse Resp BP Sys/Kay Pulse Ox Last 24 Hr 98.4 F-99.6 F 74-87 14-25 113-131/61-82 99-99 Intake & Output 11/05/18 11/06/18 11/07/18 11/08/18 23:59 23:59 23:59 23:59 Intake Total 2714 2884 2390 740 Output Total 1720 2500 2350 730 Balance 994 384 40 10 Weight 65.589 kg 64.41 kg 63.594 kg Gen: NAD at rest Heart: RRR Lung: decreased breath sounds at the bases Abd: soft, nontender Ext: no edema CBC, BMP 11/08/18 05:30 11/08/18 05:30 Active Medications Acetaminophen (Tylenol -) 650 mg PO Q6H PRN PRN Reason: FEVER Amoxicillin/Clavulanate Potassium (Augmentin - 875mg Tablet) 1 tab PO BID@0800, 1730 [facility] Stop: 11/10/18 17:31 Last Admin: 11/08/18 08:14 Dose: 1 tab Chlordiazepoxide HCl (Librium -) 10 mg PO [id number] [facility] Stop: 11/09/18 05:01 Last Admin: 11/08/18 11:19 Dose: 10 mg Chlorhexidine Gluconate (Hibiclens For Decolonization -) 1 applic TP HS [facility] Last Admin: 11/07/18 22:42 Dose: 1 applic Enoxaparin Sodium (Lovenox -) 40 mg SQ DAILY [facility] Last Admin: 11/08/18 09:15 Dose: 40 mg Levetiracetam (Keppra -) 1,000 mg PO BID [facility] Last Admin: 11/08/18 09:15 Dose: 1,000 mg Lorazepam (Ativan Injection -) 2 mg IVPUSH Q4H PRN PRN Reason: SHIVERING Last Admin: 11/06/18 02:47 Dose: 2 mg Mupirocin (Bactroban Ointment (For Decolonization) -) 1 applic NS BID [facility] Stop: 11/10/18 09:59 Last Admin: 11/08/18 09:16 Dose: 1 applic ASSESSMENT AND PLAN: s/p Acute Respiratory Failure s/p Status Epilepticus Seizure Disorder Lactic Acidosis from above Polysubstance Abuse h/o Traumatic Brain Injury r/o Aspiration Pneumonia - continue antiepileptics - complete empiric antibiotics - DVT prophylaxis - d/c planning
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
[2018-11-08 14:24] VITALS: BP 98/60; TEMP 99.2
--- NOTE | 2018-11-08 15:44 | PN ---
Physical Exam: SUBJECTIVE: Patient seen and examined this morning. No acute overnight events. Denies fevers, chills, chest pain, SOB, nausea, vomiting, diarrhea, constipation. OBJECTIVE: Vital Signs Period Temp Pulse Resp BP Sys/Kay Pulse Ox Last 24 Hr 98.7 F-99.6 F 74-87 12-25 98-131/60-82 99-99 GENERAL: A&Ox3, NAD HEAD: NCAT EYES: PERRL, EOMI ENT: Moist mucous membranes NECK: Supple LUNGS: Diminished breath sounds at the bases HEART: Regular rate and rhythm, S1, S2 without murmur ABDOMEN: Soft, nontender, nondistended, + bowel sounds EXTREMITIES: 2+ pulses, no edema NEUROLOGICAL: Cranial nerves II through XII grossly intact. 5/5 Muscle strength throughout. Gross sensation intact globally. SKIN: Warm, dry Laboratory Results - last 24 hr 11/08/18 11/08/18 05:30 05:30 WBC 10.1 H RBC 4.73 Hgb 13.4 Hct 40.7 MCV 86.0 MCH 28.4 MCHC 33.0 RDW 13.9 Plt Count 335 D MPV 8.7 Absolute Neuts (auto) 7.4 Neutrophils % 72.9 Lymphocytes % 12.2 D Monocytes % 9.4 Eosinophils % 4.8 H Basophils % 0.7 Nucleated RBC % 0 Sodium 144 Potassium 3.6 Chloride 106 Carbon Dioxide 28 Anion Gap 10 BUN 6 L Creatinine 0.7 Creat Clearance w eGFR > 60 Random Glucose 89 Calcium 8.2 L Phosphorus 3.2 Magnesium 1.6 L Total Bilirubin 0.5 AST 14 L ALT 17 Alkaline Phosphatase 80 Total Protein 6.1 L Albumin 2.9 L Microbiology 11/05/18 14:57 Sputum - Endotrachea Suction/Ventilator Gram Stain - Final 11/05/18 14:57 Sputum - Endotrachea Suction/Ventilator Sputum Culture - Final Haemophilus Parainfluenzae Iii 11/05/18 15:15 Blood - Peripheral Venous Blood Culture - Preliminary NO GROWTH OBTAINED AFTER 72 HOURS, INCUBATION TO CONTINUE FOR 2 DAYS. 11/05/18 15:15 Blood - Peripheral Venous Blood Culture - Preliminary NO GROWTH OBTAINED AFTER 72 HOURS, INCUBATION TO CONTINUE FOR 2 DAYS. 11/05/18 05:37 Blood - Peripheral Venous Blood Culture - Preliminary NO GROWTH OBTAINED AFTER 72 HOURS, INCUBATION TO CONTINUE FOR 2 DAYS. 11/05/18 05:37 Blood - Peripheral Venous Blood Culture - Preliminary NO GROWTH OBTAINED AFTER 72 HOURS, INCUBATION TO CONTINUE FOR 2 DAYS. 11/05/18 07:00 Urine - Urine - Catheterized Urine Culture - Final NO GROWTH OBTAINED Active Medications Acetaminophen (Tylenol -) 650 mg PO Q6H PRN PRN Reason: FEVER Amoxicillin/Clavulanate Potassium (Augmentin - 875mg Tablet) 1 tab PO BID@0800, 1730 [facility] Stop: 11/10/18 17:31 Last Admin: 11/08/18 08:14 Dose: 1 tab Chlordiazepoxide HCl (Librium -) 10 mg PO [id number] [facility] Stop: 11/09/18 05:01 Last Admin: 11/08/18 11:19 Dose: 10 mg Chlorhexidine Gluconate (Hibiclens For Decolonization -) 1 applic TP HS [facility] Last Admin: 11/07/18 22:42 Dose: 1 applic Enoxaparin Sodium (Lovenox -) 40 mg SQ DAILY [facility] Last Admin: 11/08/18 09:15 Dose: 40 mg Levetiracetam (Keppra -) 1,000 mg PO BID [facility] Last Admin: 11/08/18 09:15 Dose: 1,000 mg Lorazepam (Ativan Injection -) 2 mg IVPUSH Q4H PRN PRN Reason: SHIVERING Last Admin: 11/06/18 02:47 Dose: 2 mg Mupirocin (Bactroban Ointment (For Decolonization) -) 1 applic NS BID [facility] Stop: 11/10/18 09:59 Last Admin: 11/08/18 09:16 Dose: 1 applic ASSESSMENT/PLAN: 38 y/o M with PMHx of Polysubstance (EtOH, Marijuana) abuse, TBI, Seizure disorder with poor medication compliance was BIBEMS for seizures #Neuro Status Epilepticus Lactic acidosis Hx of Seizure Disorder Hx of Polysubstance abuse (EtOH, Marijuana) -Likely to medication non-compliance; In part due to EtOH + Polysubstance abuse -Lactic acidosis likely due to seizure activity, Resolved -UTox + for Cocaine, Benzo's, Marijuana -Head CT (11/05): No evidence of acute intracranial pathology. -No longer sedated -Fosphenytoin 1000mg, Phenytoin 1000mg Given x1 -Continue Keppra 1000mg PO BID, Ativan 2mg IV Q4h PRN -Continue Librium protocol (Started on 11/05) -Tolerating PO -Neurology (Dr. Harris) consulted, Appreciate Rec's, Will need outpatient follow up for tighter seizure control -Monitor I&Os, murphy in place -Neurochecks Q4H -Aspiration precautions -EKG, ECHO pending #Pulmonology Acute Respiratory Failure -No longer sedated -Extubated (on 11/06) -Tolerating Nasal [place], titrate to maintain SPO2 > 90% #Cardiovascular -BP and HR stable on Sedation -No pressors at this time -Monitor and maintain MAP >65 #ID -Afebrile, WBC down trending -UA, Blood and Sputum Cx pending -CXR (11/07): The lungs are clear. An acute process is not seen. -Ofirmev 1000mg IV Q6H PRN for fever -D/C Zosyn; Start Augmentin PO #Endocrine Elevated BG Low TSH -A1c 5.1 -Free T4 1.03 -Continue to monitor #FEN -PO Fluids -Lytes WNL -Regular diet #PPx -DVT: Lovenox #LTD -Extubated on 11/06 -Murphy placed on 11/05 Dispo: Transfer to Med-Surg Visit type - Emergency Visit Emergency Visit: Yes ED Registration Date: 11/05/18 Care time: The patient presented to the Emergency Department on the above date and was hospitalized for further evaluation of their emergent condition. - New Patient This patient is new to me today: Yes Date on this admission: 11/08/18 - Critical Care Critical Care patient: Yes Total Critical Care Time (in minutes): 36 Critical Care Statement: The care of this patient involved high complexity decision making to prevent further life threatening deterioration of the patient 's condition and/or to evaluate & treat vital organ system(s) failure or risk of failure.
--- NOTE | 2018-11-08 15:59 | DS ---
Physical Exam: SUBJECTIVE: Patient seen and examined at bedside. No acute events overnight. OBJECTIVE: Vital Signs Period Temp Pulse Resp BP Sys/Kay Pulse Ox Last 24 Hr 98.7 F-99.6 F 74-87 12-25 98-131/60-82 99-99 PHYSICAL EXAM GENERAL: A&Ox3, NAD HEAD: NCAT EYES: PERRL, EOMI ENT: Moist mucous membranes NECK: Supple LUNGS: Diminished breath sounds at the bases HEART: Regular rate and rhythm, S1, S2 without murmur ABDOMEN: Soft, nontender, nondistended, + bowel sounds EXTREMITIES: 2+ pulses, no edema NEUROLOGICAL: Cranial nerves II through XII grossly intact. 5/5 Muscle strength throughout. Gross sensation intact globally. SKIN: Warm, dry LABS Laboratory Results - last 24 hr 11/08/18 11/08/18 05:30 05:30 WBC 10.1 H RBC 4.73 Hgb 13.4 Hct 40.7 MCV 86.0 MCH 28.4 MCHC 33.0 RDW 13.9 Plt Count 335 D MPV 8.7 Absolute Neuts (auto) 7.4 Neutrophils % 72.9 Lymphocytes % 12.2 D Monocytes % 9.4 Eosinophils % 4.8 H Basophils % 0.7 Nucleated RBC % 0 Sodium 144 Potassium 3.6 Chloride 106 Carbon Dioxide 28 Anion Gap 10 BUN 6 L Creatinine 0.7 Creat Clearance w eGFR > 60 Random Glucose 89 Calcium 8.2 L Phosphorus 3.2 Magnesium 1.6 L Total Bilirubin 0.5 AST 14 L ALT 17 Alkaline Phosphatase 80 Total Protein 6.1 L Albumin 2.9 L HOSPITAL COURSE: Date of Admission:11/05/18 38M with PMHx of Polysubstance (EtOH, Marijuana) abuse, TBI, Seizure disorder with poor medication compliance was BIBEMS admitted for status epilepticus. Prior to arrival in the ED, pt was given Midazolam IM then IV, with no improvement in convulsions. Upon arrival to the hospital he was then given Keppra, Ativan, and rectal diazepam. He was noted to be desaturating on non- rebreather at 15L and continued to seize and was immediately intubated in the ED , sedated as well. Consequently, pt was admitted to the ICU for further monitoring. Initial labs showed elevated lactate after which he received IVf. Blood and urine cultures were neg. PT was given Zosyn to cover possible aspiration pna. Head CT was done that showed no evid of acute IC pathology. UTox was +marijuana, benzos, cocaine. Due to hx of alcohol abuse, Librium protocol was started for alcohol withdrawal. Pt was seen and evaluated by neuro and recommended to cont Keppra 1000 BID. On day 2 of admission, pt's respiratory status improved and was subsequently extubated, tolerating O2 NC. Pt 's condition improved throughout hospital stay. He was counseled on alcohol cessation and the need to undergo rehab for alcohol abuse as an outpatient since he declined inpatient rehab at this time. He was also advised to continue his Librium taper, Keppra, Phenytoin, and to take PO Augmentin x7 days. Additionally, he was instructed to follow up with his primary care physician and neurologist outpatient. Date of Discharge: 11/08/18 Minutes to complete discharge: 40 Discharge Summary Reason For Visit: HARD TO INTUBATE/STATUS EPILEPTICUS Condition: Improved - Instructions Diet, Activity, Other Instructions: You were admitted to the hospital after a seizure. You were found to have worsening breathing status, and as a result, you were monitored in the ICU. During your hospital stay, you were intubated. MEDICAL RECOMMENDATIONS Please continue to take Librium 10 mg once every 6 hours. You have 3 more pills left. Please continue taking the rest of your home meds as directed. It is highly recommended that you attend and outpatient alcohol detox and/or rehab program after discharge. You will likely benefit from outpatient alcohol rehab or Alcoholics Anonymous to help with your substance abuse. PLEASE STOP DRINKING ALCOHOL. REFERRALS Please follow up with your primary care physician within 1 week. If you do not have one, you can make an appointment at [facility] [place]. The number is . Please follow up with your neurologist, Dr. Harris, within 1 week. If you experience alcohol withdrawal symptoms such as hallucinations, seizures, fever/chills, nausea/vomiting, or worsening chest pain, shortness of breath, please proceed to your nearest emergency room immediately. Referrals: [facility] [place] [Provider Group] - 1 Week Julio Harris MD [Staff Physician] - 1 Week Disposition: HOME - Home Medications Comprehensive Discharge Medication List: Ambulatory Orders Phenytoin 300 mg PO HS #30 tab.chew 01/22/19 levETIRAcetam [Keppra -] 1,000 mg PO BID #60 tablet 11/08/18 This patient is new to me today: No Emergency Visit: Yes ED Registration Date: 11/05/18 Care time: The patient presented to the Emergency Department on the above date and was hospitalized for further evaluation of their emergent condition. Critical Care patient: Yes Total Critical Care Time (in minutes): 40 Critical Care Statement: The care of this patient involved high complexity decision making to prevent further life threatening deterioration of the patient 's condition and/or to evaluate & treat vital organ system(s) failure or risk of failure. - Discharge Referral Referred to [facility] No
== END 2018-11-08 18:00 | disposition home or self-care (01) | DRG 133 ==
LOC: JER 02:11 → JERBED 03:37 → JICU 05:51
PROVIDERS: ADMIT Internal Medicine; ATTEND Internal Medicine
PROC: 5A1945Z Respiratory Ventilation, 24-96 Consecutive Hours (ICD-10-PCS; principal; 2018-11-05)
PROC: 0BH17EZ Insertion of Endotracheal Airway into Trachea, Via Natural or Artificial Opening (ICD-10-PCS; 2018-11-05)
DX: J96.01 Acute respiratory failure with hypoxia (principal); E87.2 Acidosis; F12.10 Cannabis abuse, uncomplicated; F10.20 Alcohol dependence, uncomplicated; R00.0 Tachycardia, unspecified; G93.89 Other specified disorders of brain; Z87.820 Personal history of traumatic brain injury; G40.911 Epilepsy, unspecified, intractable, with status epilepticus; N17.9 Acute kidney failure, unspecified; D72.829 Elevated white blood cell count, unspecified
CPT/HCPCS: 31500; 36415; 36600; 70450-TC; 71045-TC-FY; 80048; 80053; 80307; 81003; 81015; 82375; 82550; 82553; 82803; 82962; 83036; 83050; 83605; 83735; 84100; 84439; 84443; 84484; 85025; 85610; 85730; 87040; 87070; 87077; 87086; 87205; 90688; 93005; 93010; 93306-TC; 97116-GP; 97161-GP; 99284-25; G0008